=== PATIENT | female | born 1940 | race Caucasian/White ===

== ENCOUNTER 2019-07-08 18:01 | Inpatient (IN) | payer MEDICARE, OTHER ==
[2019-07-08] MEDS ORDERED: Albuterol/Ipratropium 3.0-0.5 MG/3 ML Neb Soln NEB ONE ×2 (18:25→19:53)
--- NOTE | 2019-07-08 18:30 | EDM.PDOC ---
ED HPI GENERAL MEDICAL PROBLEM - General Chief Complaint: Respiratory Problem Stated Complaint: COUGH/CHEST COLD Time Seen by Provider: 07/08/19 18:17 Source of Information: Reports: Patient History Limitations: Reports: No Limitations - History of Present Illness INITIAL COMMENTS - FREE TEXT/NARRATIVE: HISTORY AND PHYSICAL: History of present illness: Patient is a 79-year-old female who presents to the ED today for concern of cough x1 week. Patient does state the cough is worse when she lays flat and better sitting up. Patient states when she woke up this morning her eyes were also crusted over and red in both of her eyes. Patient states she does not wear contacts but does wear glasses. Patient states she has a history of stroke in 2017 and narrow carotid artery but denies any other health history. Patient states she does not smoke and does not inhale any substances and has never had in the past. Patient denies fever, chills, chest pain, shortness of breath. Denies headache, neck stiff ness, change in vision, syncope, or near syncope. Denies nausea, vomiting, abdominal pain, diarrhea, constipation, or dysuria. Has not noted any blood in urine or stool. Patient has been eating and drinking appropriately. Review of systems: As per history of present illness and below otherwise all systems reviewed and negative. Past medical history: As per history of present illness and as reviewed below otherwise noncontributory. Surgical history: As per history of present illness and as reviewed below otherwise noncontributory. Social history: See social history for further information Family history: As per history of present illness and as reviewed below otherwise noncontributory. Physical exam: General: Patient is alert, oriented, and in no acute distress. Patient sitting comfortably on exam table. HEENT: Atraumatic, normocephalic, pupils equal and reactive bilaterally, negative for conjunctival pallor or scleral icterus, mucous membranes moist, TMs normal bilaterally, throat clear, neck supple, nontender, trachea midline. No drooling or trismus noted. No meningeal signs. No hot potato voice noted. Visual acuity intact. EOM intact without pain or difficulty. Bilateral sclera are mildly injected without crusting of the lids. Lungs: Mild fine crackles to auscultation bilaterally, breath sounds equal bilaterally, chest nontender. Heart: S1S2, regular rate and rhythm without overt murmur Abdomen: Soft, nondistended, nontender. Negative for masses or hepatosplenomegaly. Negative for costovertebral tenderness. Pelvis: Stable nontender. Genitourinary: Deferred. Rectal: Deferred. Skin: Intact, warm, dry. No lesions or rashes noted. Extremities: Atraumatic, negative for cords or calf pain. Neurovascular unremarkable. Neuro: Awake, alert, oriented. Cranial nerves II through XII unremarkable. Cerebellum unremarkable. Motor and sensory unremarkable throughout. Exam nonfocal. Notes: Patient 85% O2 on RA. Placed on 2L NC and 90-91%. Breathing comfortably without secondary accessory muscle use, or tachypnea. Dr. Gilbert consulted on patient and will admit to inpatient with telemetry. Voices understanding and is agreeable to plan of care. Denies any further questions or concerns at this time. Diagnostics: Influenza, CBC, CMP, UA, EKG, chest x-ray, troponin, BNP Therapeutics: Duoneb, Rocephin, Lasix Impression: Hypoxia Congestive Heart Failure, new onset Urinary Tract Infection Plan: Admit to inpatient to Dr. Gilbert on telemetry. Definitive disposition and diagnosis as appropriate pending reevaluation and review of above. Epigastric Pain Score (Numeric/FACES): 8 - Related Data Allergies Allergy/AdvReac Type Severity Reaction Status Date / Time Penicillins Allergy Other Verified 07/08/19 18:23 Home Meds: Home Meds Aspirin [Adult Low Dose Aspirin EC] 81 mg PO DAILY 06/16/18 [History] Celecoxib 200 mg PO DAILY 06/16/18 [History] HCTZ/Triamterene [Dyazide 25-37.5 MG] 1 tab PO DAILY 06/16/18 [History] NIFEdipine [Nifedipine] 60 mg PO DAILY 06/16/18 [History] Omeprazole 40 mg PO DAILY 06/16/18 [History] PARoxetine [Paxil] 20 mg PO DAILY 06/16/18 [History] Simvastatin 20 mg PO DAILY 06/16/18 [History] atenoloL [Atenolol] 50 mg PO DAILY 06/16/18 [History] Past Medical History HEENT History: Reports: None Cardiovascular History: Reports: High Cholesterol, Hypertension Respiratory History: Reports: None Gastrointestinal History: Reports: GERD Genitourinary History: Reports: None Musculoskeletal History: Reports: None Neurological History: Reports: CVA Psychiatric History: Reports: Anxiety Endocrine/Metabolic History: Reports: None Hematologic History: Reports: None Immunologic History: Reports: None - Infectious Disease History Infectious Disease History: Reports: Chicken Pox, Measles, Mumps - Past Surgical History HEENT Surgical History: Reports: Other (See Below) Other HEENT Surgeries/Procedures: wearsn eye glass GI Surgical History: Reports: Colonoscopy Social & Family History - Family History Family Medical History: Noncontributory - Caffeine Use Caffeine Use: Reports: Coffee, Soda ED ROS GENERAL - Review of Systems Review Of Systems: Comprehensive ROS is negative, except as noted in HPI. ED EXAM, GENERAL - Physical Exam Exam: See Below (see dictation) Course - Vital Signs Last Recorded V/S: Last Vital Signs Temp 97.5 F 07/08/19 18:10 Pulse 80 07/08/19 19:54 Resp 21 H 07/08/19 19:54 BP 150/67 H 07/08/19 19:54 Pulse Ox 85 L 07/08/19 19:54 - Orders/Labs/Meds Orders: Active Orders 24 hr Category Date Time Status Admission Status [Patient Status] [ADT] Stat ADT 07/08/19 20:40 Ordered EKG Documentation Completion [RC] STAT Care 07/08/19 18:25 Active RT Aerosol Therapy [RC] ASDIRECTED Care 07/08/19 18:25 Active RT Aerosol Therapy [RC] ASDIRECTED Care 07/08/19 19:53 Active B-TYPE NATRIURETIC PEPTIDE,BNP [CHEM] Stat Lab 07/08/19 18:41 Received CULTURE URINE [RM] Stat Lab 07/08/19 19:19 Received cefTRIAXone [Rocephin in Dextrose,Iso-Osm 1 GM/50 ML] 1 Med 07/08/19 20:24 Ordered gm Premix Bag 1 bag IV ONETIME Medication Orders Ceftriaxone Sodium/Dextrose 1 (gm/ Premix) 50 mls @ 100 mls/hr IV ONETIME ONE Stop: 07/08/19 20:53 Labs: Laboratory Tests 07/08/19 07/08/19 07/08/19 Range/Units 18:41 18:41 19:19 WBC 13.21 H (4.0-11.0) K/uL RBC 4.58 (4.30-5.90) M/uL Hgb 13.5 (12.0-16.0) g/dL Hct 40.4 (36.0-46.0) % MCV 88.2 (80.0-98.0) fL MCH 29.5 (27.0-32.0) pg MCHC 33.4 (31.0-37.0) g/dL RDW Std Deviation 42.5 (28.0-62.0) fl RDW Coeff of Bebo 13 (11.0-15.0) % Plt Count 344 (150-400) K/uL MPV 8.70 (7.40-12.00) fL Add Manual Diff YES Neutrophils % (Manual) 63 (48.0-80.0) % Band Neutrophils % 11 % Lymphocytes % (Manual) 14 L (16.0-40.0) % Monocytes % (Manual) 10 (0.0-15.0) % Eosinophils % (Manual) 2 (0.0-7.0) % Nucleated RBC % 0.0 /100WBC Absolute Seg Neuts 8.3 H (1.4-5.7) Band Neutrophils # 1.5 Lymphocytes # (Manual) 1.8 (0.6-2.4) Monocytes # (Manual) 1.3 H (0.0-0.8) Eosinophils # (Manual) 0.3 (0.0-0.7) Nucleated RBCs # 0 K/uL Sodium 137 (136-145) mmol/L Potassium 3.7 (3.5-5.1) mmol/L Chloride 99 (98-107) mmol/L Carbon Dioxide 26.1 (21.0-32.0) mmol/L BUN 22 H (7.0-18.0) mg/dL Creatinine 1.1 H (0.6-1.0) mg/dL Est Cr Clr Drug Dosing 38.54 mL/min Estimated GFR (MDRD) 48.2 ml/min Glucose 114 H (74-106) mg/dL Calcium 9.6 (8.5-10.1) mg/dL Total Bilirubin 0.4 (0.2-1.0) mg/dL AST 31 (15-37) IU/L ALT 52 (14-63) IU/L Alkaline Phosphatase 110 (46-116) U/L Troponin I < 0.050 (0.000-0.056) ng/mL Total Protein 7.5 (6.4-8.2) g/dL Albumin 2.9 L (3.4-5.0) g/dL Globulin 4.6 H (2.6-4.0) g/dL Albumin/Globulin Ratio 0.6 L (0.9-1.6) Urine Color YELLOW Urine Appearance SLT CLOUDY Urine pH 6.0 (5.0-8.0) Ur Specific [place] 1.020 (1.001-1.035) Urine Protein TRACE H (NEGATIVE) mg/dL Urine Glucose (UA) NEGATIVE (NEGATIVE) mg/dL Urine Ketones NEGATIVE (NEGATIVE) mg/dL Urine Occult Blood NEGATIVE (NEGATIVE) Urine Nitrite NEGATIVE (NEGATIVE) Urine Bilirubin NEGATIVE (NEGATIVE) Urine Urobilinogen 0.2 (<2.0) EU/dL Ur Leukocyte Esterase LARGE H (NEGATIVE) Urine RBC 0-4 (0-2/HPF) Urine WBC 8-16 (0-5/HPF) Ur Epithelial Cells OCCASIONAL (NONE-FEW) Urine Bacteria 1+ H (NEGATIVE) Meds: Medications Generic Name Dose Route Start Last Admin Trade Name Payton PRN Reason Stop Dose Admin Ceftriaxone Sodium/Dextrose 1 50 mls @ 100 mls/hr 07/08/19 20:24 gm/ Premix IV 07/08/19 20:53 ONETIME ONE Discontinued Medications Generic Name Dose Route Start Last Admin Trade Name Payton PRN Reason Stop Dose Admin Albuterol/Ipratropium 3 ml 07/08/19 18:25 07/08/19 18:36 Duoneb 3.0-0.5 Mg/3 Ml NEB 07/08/19 18:26 3 ml ONETIME ONE Administration Albuterol/Ipratropium 3 ml 07/08/19 19:53 07/08/19 20:00 Duoneb 3.0-0.5 Mg/3 Ml NEB 07/08/19 19:54 3 ml ONETIME ONE Administration Furosemide 20 mg 07/08/19 20:24 Lasix IVPUSH 07/08/19 20:25 NOW ONE Departure - Departure Time of Disposition: 20:42 Disposition: Admitted As Inpatient 68 Clinical Impression: Hypoxia Congestive heart failure (CHF) Qualifiers: Heart failure type: unspecified Heart failure chronicity: acute Qualified Code( s): I50.9 - Heart failure, unspecified Urinary tract infection Qualifiers: Urinary tract infection type: acute cystitis Hematuria presence: without hematuria Qualified Code(s): N30.00 - Acute cystitis without hematuria - Discharge Information Referrals: Michelle Rodarte DO [Primary Care Provider] - Forms: ED Department Discharge Sepsis Event Note - Evaluation Sepsis Screening Result: No Definite Risk - Focused Exam Vital Signs: Vital Signs Temp Pulse Resp BP Pulse Ox 07/08/19 19:54 80 21 H 150/67 H 85 L 07/08/19 19:16 82 21 H 153/62 H 90 L 07/08/19 18:10 97.5 F 87 20 166/88 H 91 L Date Exam was Performed: 07/08/19 Time Exam was Performed: 20:41 - My Orders Last 24 Hours: My Active Orders 07/08/19 18:25 EKG Documentation Completion [RC] STAT RT Aerosol Therapy [RC] ASDIRECTED 07/08/19 18:41 B-TYPE NATRIURETIC PEPTIDE,BNP [CHEM] Stat 07/08/19 19:19 CULTURE URINE [RM] Stat 07/08/19 19:53 RT Aerosol Therapy [RC] ASDIRECTED 07/08/19 20:24 cefTRIAXone [Rocephin in Dextrose,Iso-Osm 1 GM/50 ML] 1 gm Premix Bag 1 bag IV ONETIME 07/08/19 20:40 Admission Status [Patient Status] [ADT] Stat - Assessment/Plan Last 24 Hours: My Active Orders 07/08/19 18:25 EKG Documentation Completion [RC] STAT RT Aerosol Therapy [RC] ASDIRECTED 07/08/19 18:41 B-TYPE NATRIURETIC PEPTIDE,BNP [CHEM] Stat 07/08/19 19:19 CULTURE URINE [RM] Stat 07/08/19 19:53 RT Aerosol Therapy [RC] ASDIRECTED 07/08/19 20:24 cefTRIAXone [Rocephin in Dextrose,Iso-Osm 1 GM/50 ML] 1 gm Premix Bag 1 bag IV ONETIME 07/08/19 20:40 Admission Status [Patient Status] [ADT] Stat
--- NOTE | 2019-07-08 19:16 | CR ---
Chest: 2 views of the chest were obtained. Comparison: Prior chest x-ray of 06/16/18. Heart is mildly enlarged. Large hiatal hernia is present. Pulmonary vessels show mild chronic congestion. Mild atelectasis within left lung base is seen. No acute parenchymal change is seen. Slight widening of the upper mediastinum is seen which is stable. Bony structures show mild scoliosis within the spine with scattered degenerative change also seen within the spine. Impression: 1. Findings as noted above. 2. Nothing acute is appreciated. Diagnostic code #2 Study was dictated in [place] Standard Time
[2019-07-08 19:19] LABS: BLOOD UREA NITROGEN,BUN 22 mg/dL (7.0-18.0); CARBON DIOXIDE,CO2 26.1 mmol/L (21.0-32.0); CHLORIDE,CL 99 mmol/L (98-107); GLUCOSE RANDOM 114 mg/dL (74-106); POTASSIUM,K 3.7 mmol/L (3.5-5.1); SODIUM,NA 137 mmol/L (136-145)
[2019-07-08] MEDS ORDERED: Furosemide 40 MG/4 ML VIAL IVPUSH ONE (20:24)
[2019-07-08] MEDS ORDERED: cefTRIAXone 1 GM in Premix Bag 1 BAG IV ONE (20:24)
--- NOTE | 2019-07-08 23:28 | PCM.HP.2 ---
H&P History of Present Illness - General Date of Service: 07/08/19 Admit Problem/Dx: Admission Diagnosis/Problem Admission Diagnosis/Problem Hypoxia - History of Present Illness Initial Comments - Free Text/Narative: 79 yo female with pmh of HTN and CVA who presents with several day history of cough. Cough is worse at night. PAtient reports shortness of breath with walking. She denies any fevers, chills or chest pain. In the ED she was noted to satting 85% on room air. Epigastric Pain Score (Numeric/FACES): 8 - Related Data Allergies/Adverse Reactions: Allergies Allergy/AdvReac Type Severity Reaction Status Date / Time Penicillins Allergy Rash Verified 07/08/19 22:13 Home Medications: Home Meds Aspirin [Adult Low Dose Aspirin EC] 81 mg PO DAILY 06/16/18 [History] HCTZ/Triamterene [Dyazide 25-37.5 MG] 1 tab PO DAILY 06/16/18 [History] NIFEdipine [Nifedipine] 60 mg PO DAILY 06/16/18 [History] Omeprazole 40 mg PO DAILY 06/16/18 [History] PARoxetine [Paxil] 20 mg PO DAILY 06/16/18 [History] atenoloL [Atenolol] 50 mg PO DAILY 06/16/18 [History] Ascorbic Acid [C-1000] 1,000 mg PO DAILY 07/08/19 [History] Calcium Carbonate/Vitamin D3 [Calcium Carb 500 MG] 1 tab PO DAILY 07/08/19 [ History] Celecoxib 200 mg PO DAILY 07/08/19 [History] Multivitamins [Tab-A-Ritchie] 1 each PO DAILY 07/08/19 [History] [place]-3 Fatty Acids/Fish Oil [Fish Oil 1,200 mg Softgel] 1 each PO DAILY [History] atorvaSTATin [Lipitor] 40 mg PO BEDTIME 07/08/19 [History] Azithromycin [Zithromax] 500 mg PO Q24H #6 tablet 07/10/19 [Rx] Past Medical History HEENT History: Reports: None Cardiovascular History: Reports: High Cholesterol, Hypertension Respiratory History: Reports: None Gastrointestinal History: Reports: GERD Genitourinary History: Reports: None Musculoskeletal History: Reports: Arthritis Neurological History: Reports: CVA Other Neuro History: November 2016 Psychiatric History: Reports: Anxiety Endocrine/Metabolic History: Reports: None Hematologic History: Reports: None Immunologic History: Reports: None Oncologic (Cancer) History: Reports: None Dermatologic History: Reports: None - Infectious Disease History Infectious Disease History: Reports: Chicken Pox, Measles, Mumps - Past Surgical History Head Surgeries/Procedures: Reports: None HEENT Surgical History: Reports: Other (See Below) Other HEENT Surgeries/Procedures: wearsn eye glass GI Surgical History: Reports: Colonoscopy Social & Family History - Family History Family Medical History: Noncontributory - Tobacco Use Smoking Status *Q: Never Smoker Second Hand Smoke Exposure: No - Caffeine Use Caffeine Use: Reports: Coffee, Soda - Recreational Drug Use Recreational Drug Use: No H&P Review of Systems - Review of Systems: Review Of Systems: Comprehensive ROS is negative, except as noted in HPI. Exam - Exam Exam: See Below - Vital Signs Vital Signs: Last Vital Signs Temp 36.4 C 07/08/19 18:10 Pulse 84 07/08/19 20:10 Resp 22 H 07/08/19 20:10 BP 150/67 H 07/08/19 19:54 Pulse Ox 94 L 07/08/19 20:10 Weight: 89.5 kg - Exam General: Alert, Oriented HEENT: Posterior Pharynx Clear Lungs: Clear to Auscultation, Normal Respiratory Effort Cardiovascular: Regular Rate, Regular Rhythm GI/Abdominal Exam: Soft Extremities: Non-Tender, No Pedal Edema Skin: Warm, Dry, Intact Neurological: No: Focal Deficit - Patient Data Lab Results Last 24 hrs: Laboratory Results - last 24 hr 07/08/19 07/08/19 07/08/19 Range/Units 18:41 18:41 18:41 WBC 13.21 H (4.0-11.0) K/uL RBC 4.58 (4.30-5.90) M/uL Hgb 13.5 (12.0-16.0) g/dL Hct 40.4 (36.0-46.0) % MCV 88.2 (80.0-98.0) fL MCH 29.5 (27.0-32.0) pg MCHC 33.4 (31.0-37.0) g/dL RDW Std Deviation 42.5 (28.0-62.0) fl RDW Coeff of Bebo 13 (11.0-15.0) % Plt Count 344 (150-400) K/uL MPV 8.70 (7.40-12.00) fL Add Manual Diff YES Neutrophils % (Manual) 63 (48.0-80.0) % Band Neutrophils % 11 % Lymphocytes % (Manual) 14 L (16.0-40.0) % Monocytes % (Manual) 10 (0.0-15.0) % Eosinophils % (Manual) 2 (0.0-7.0) % Nucleated RBC % 0.0 /100WBC Absolute Seg Neuts 8.3 H (1.4-5.7) Band Neutrophils # 1.5 Lymphocytes # (Manual) 1.8 (0.6-2.4) Monocytes # (Manual) 1.3 H (0.0-0.8) Eosinophils # (Manual) 0.3 (0.0-0.7) Nucleated RBCs # 0 K/uL Sodium 137 (136-145) mmol/L Potassium 3.7 (3.5-5.1) mmol/L Chloride 99 (98-107) mmol/L Carbon Dioxide 26.1 (21.0-32.0) mmol/L BUN 22 H (7.0-18.0) mg/dL Creatinine 1.1 H (0.6-1.0) mg/dL Est Cr Clr Drug Dosing 38.54 mL/min Estimated GFR (MDRD) 48.2 ml/min Glucose 114 H (74-106) mg/dL Calcium 9.6 (8.5-10.1) mg/dL Total Bilirubin 0.4 (0.2-1.0) mg/dL AST 31 (15-37) IU/L ALT 52 (14-63) IU/L Alkaline Phosphatase 110 (46-116) U/L Troponin I < 0.050 (0.000-0.056) ng/mL B-Natriuretic Peptide 87 (<100) PG/ML Total Protein 7.5 (6.4-8.2) g/dL Albumin 2.9 L (3.4-5.0) g/dL Globulin 4.6 H (2.6-4.0) g/dL Albumin/Globulin Ratio 0.6 L (0.9-1.6) Urine Color Urine Appearance Urine pH (5.0-8.0) Ur Specific [place] (1.001-1.035) Urine Protein (NEGATIVE) mg/dL Urine Glucose (UA) (NEGATIVE) mg/dL Urine Ketones (NEGATIVE) mg/dL Urine Occult Blood (NEGATIVE) Urine Nitrite (NEGATIVE) Urine Bilirubin (NEGATIVE) Urine Urobilinogen (<2.0) EU/dL Ur Leukocyte Esterase (NEGATIVE) Urine RBC (0-2/HPF) Urine WBC (0-5/HPF) Ur Epithelial Cells (NONE-FEW) Urine Bacteria (NEGATIVE) 07/08/19 Range/Units 19:19 WBC (4.0-11.0) K/uL RBC (4.30-5.90) M/uL Hgb (12.0-16.0) g/dL Hct (36.0-46.0) % MCV (80.0-98.0) fL MCH (27.0-32.0) pg MCHC (31.0-37.0) g/dL RDW Std Deviation (28.0-62.0) fl RDW Coeff of Bebo (11.0-15.0) % Plt Count (150-400) K/uL MPV (7.40-12.00) fL Add Manual Diff Neutrophils % (Manual) (48.0-80.0) % Band Neutrophils % % Lymphocytes % (Manual) (16.0-40.0) % Monocytes % (Manual) (0.0-15.0) % Eosinophils % (Manual) (0.0-7.0) % Nucleated RBC % /100WBC Absolute Seg Neuts (1.4-5.7) Band Neutrophils # Lymphocytes # (Manual) (0.6-2.4) Monocytes # (Manual) (0.0-0.8) Eosinophils # (Manual) (0.0-0.7) Nucleated RBCs # K/uL Sodium (136-145) mmol/L Potassium (3.5-5.1) mmol/L Chloride (98-107) mmol/L Carbon Dioxide (21.0-32.0) mmol/L BUN (7.0-18.0) mg/dL Creatinine (0.6-1.0) mg/dL Est Cr Clr Drug Dosing mL/min Estimated GFR (MDRD) ml/min Glucose (74-106) mg/dL Calcium (8.5-10.1) mg/dL Total Bilirubin (0.2-1.0) mg/dL AST (15-37) IU/L ALT (14-63) IU/L Alkaline Phosphatase (46-116) U/L Troponin I (0.000-0.056) ng/mL B-Natriuretic Peptide (<100) PG/ML Total Protein (6.4-8.2) g/dL Albumin (3.4-5.0) g/dL Globulin (2.6-4.0) g/dL Albumin/Globulin Ratio (0.9-1.6) Urine Color YELLOW Urine Appearance SLT CLOUDY Urine pH 6.0 (5.0-8.0) Ur Specific [place] 1.020 (1.001-1.035) Urine Protein TRACE H (NEGATIVE) mg/dL Urine Glucose (UA) NEGATIVE (NEGATIVE) mg/dL Urine Ketones NEGATIVE (NEGATIVE) mg/dL Urine Occult Blood NEGATIVE (NEGATIVE) Urine Nitrite NEGATIVE (NEGATIVE) Urine Bilirubin NEGATIVE (NEGATIVE) Urine Urobilinogen 0.2 (<2.0) EU/dL Ur Leukocyte Esterase LARGE H (NEGATIVE) Urine RBC 0-4 (0-2/HPF) Urine WBC 8-16 (0-5/HPF) Ur Epithelial Cells OCCASIONAL (NONE-FEW) Urine Bacteria 1+ H (NEGATIVE) Result Diagrams: 07/10/19 05:52 07/10/19 05:52 Jimmie Results Last 24 hrs: Microbiology 07/08/19 18:15 Influenza Type A Antigen Screen - Final Nasopharyngeal Swab NEGATIVE INFLUENZA A VIRUS AG REFERENCE RANGE: NEGATIVE Influenza Type B Antigen Screen - Final NEGATIVE INFLUENZA B VIRUS AG REFERENCE RANGE: NEGATIVE Sepsis Event Note - Evaluation Sepsis Screening Result: No Definite Risk - Focused Exam Vital Signs: Vital Signs Temp Pulse Resp BP Pulse Ox 07/08/19 20:10 84 22 H 94 L 07/08/19 19:54 80 21 H 150/67 H 85 L 07/08/19 19:16 82 21 H 153/62 H 90 L 07/08/19 18:10 36.4 C 87 20 166/88 H 91 L Date Exam was Performed: 07/15/19 Time Exam was Performed: 10:58 Problem List Initiated/Reviewed/Updated: Yes Orders Last 24hrs: Active Orders 24 hr Category Date Time Status Admission Status [Patient Status] [ADT] Stat ADT 07/08/19 20:40 Active EKG Documentation Completion [RC] STAT Care 07/08/19 18:25 Active RT Aerosol Therapy [RC] ASDIRECTED Care 07/08/19 18:25 Active RT Aerosol Therapy [RC] ASDIRECTED Care 07/08/19 19:53 Active CULTURE URINE [RM] Stat Lab 07/08/19 19:19 Received Acetaminophen [Tylenol] Med 07/08/19 23:17 Active 650 mg PO Q6H PRN Medication Orders Acetaminophen (Tylenol) 650 mg PO Q6H PRN PRN Reason: Pain Assessment/Plan Comment:: 79 yo female admitted with Pneumonia and CHF. We will treat with Rocephin and Azithromycin. Lasix has been given. Will continue to wean supplemental oxygen as tolerated.
[2019-07-09] MEDS: Azithromycin 250 MG Tab PO SCH (00:37)
[2019-07-09] MEDS: Heparin Sodium 5,000 Units/ML Vial SUBCUT SCH ×3 (00:39→16:20)
[2019-07-09 06:35] LABS: CARBON DIOXIDE,CO2 31.7 mmol/L (21.0-32.0); POTASSIUM,K 3.8 mmol/L (3.5-5.1)
[2019-07-09] MEDS ORDERED: Albuterol/Ipratropium 3.0-0.5 MG/3 ML Neb Soln NEB PRN (08:48)
[2019-07-09] MEDS: Hydrochlorothiazide/Triamterene 25-37.5 Tab PO SCH (08:50)
[2019-07-09] MEDS: NIFEdipine 30 MG Tab.ER PO SCH (08:50)
[2019-07-09] MEDS: Atenolol 50 MG Tab PO SCH (08:51)
[2019-07-09] MEDS: Aspirin 81 MG Tab.EC PO SCH (08:51)
[2019-07-09] MEDS: Omeprazole 20 MG Cap.CR PO SCH (08:52)
--- NOTE | 2019-07-09 09:04 | PCM.PN ---
- General Info Date of Service: 07/09/19 Admission Dx/Problem (Free Text): Admission Diagnosis/Problem Admission Diagnosis/Problem Hypoxia Subjective Update: Patient has no complaints of SOB but still has a cough. She states, "I did not sleep well last night but was not SOB, just had a cough." No chest pain or edema and was sitting up visiting with her daughter. She reports that she does snore during the night and wakes up short of breath sometimes. She sleeps with one pillow behind her head and feels better when she sitting up sleeping. No complaint of dysuria or frequency, she had a bowel movement 07/08 and is passing gas. She is on 2 liters of O2 and maintaining greater than 90. - Review of Systems General: Reports: No Symptoms HEENT: Reports: No Symptoms Pulmonary: Reports: Shortness of Breath Cardiovascular: Reports: No Symptoms Gastrointestinal: Reports: No Symptoms Genitourinary: Reports: No Symptoms Musculoskeletal: Reports: No Symptoms Skin: Reports: No Symptoms Neurological: Reports: No Symptoms Psychiatric: Reports: No Symptoms - Patient Data Vitals - Most Recent: Last Vital Signs Temp 96 F 07/09/19 08:28 Pulse 78 07/09/19 08:51 Resp 18 07/09/19 08:28 BP 136/64 07/09/19 08:51 Pulse Ox 92 L 07/09/19 08:28 Weight - Most Recent: 89.5 kg I&O - Last 24 Hours: Intake & Output 07/08/19 07/09/19 07/09/19 22:59 06:59 14:59 Intake Total 650 Output Total 950 Balance -300 Lab Results Last 24 Hours: Laboratory Results - last 24 hr 07/08/19 07/08/19 07/08/19 Range/Units 18:41 18:41 18:41 WBC 13.21 H (4.0-11.0) K/uL RBC 4.58 (4.30-5.90) M/uL Hgb 13.5 (12.0-16.0) g/dL Hct 40.4 (36.0-46.0) % MCV 88.2 (80.0-98.0) fL MCH 29.5 (27.0-32.0) pg MCHC 33.4 (31.0-37.0) g/dL RDW Std Deviation 42.5 (28.0-62.0) fl RDW Coeff of Bebo 13 (11.0-15.0) % Plt Count 344 (150-400) K/uL MPV 8.70 (7.40-12.00) fL Neut % (Auto) (48.0-80.0) % Lymph % (Auto) (16.0-40.0) % [place] % (Auto) (0.0-15.0) % Eos % (Auto) (0.0-7.0) % Baso % (Auto) (0.0-1.5) % Neut # (Auto) (1.4-5.7) K/uL Lymph # (Auto) (0.6-2.4) K/uL [place] # (Auto) (0.0-0.8) K/uL Eos # (Auto) (0.0-0.7) K/uL Baso # (Auto) (0.0-0.1) K/uL Add Manual Diff YES Neutrophils % (Manual) 63 (48.0-80.0) % Band Neutrophils % 11 % Lymphocytes % (Manual) 14 L (16.0-40.0) % Monocytes % (Manual) 10 (0.0-15.0) % Eosinophils % (Manual) 2 (0.0-7.0) % Nucleated RBC % 0.0 /100WBC Absolute Seg Neuts 8.3 H (1.4-5.7) Band Neutrophils # 1.5 Lymphocytes # (Manual) 1.8 (0.6-2.4) Monocytes # (Manual) 1.3 H (0.0-0.8) Eosinophils # (Manual) 0.3 (0.0-0.7) Nucleated RBCs # 0 K/uL Sodium 137 (136-145) mmol/L Potassium 3.7 (3.5-5.1) mmol/L Chloride 99 (98-107) mmol/L Carbon Dioxide 26.1 (21.0-32.0) mmol/L BUN 22 H (7.0-18.0) mg/dL Creatinine 1.1 H (0.6-1.0) mg/dL Est Cr Clr Drug Dosing 38.54 mL/min Estimated GFR (MDRD) 48.2 ml/min Glucose 114 H (74-106) mg/dL Calcium 9.6 (8.5-10.1) mg/dL Total Bilirubin 0.4 (0.2-1.0) mg/dL AST 31 (15-37) IU/L ALT 52 (14-63) IU/L Alkaline Phosphatase 110 (46-116) U/L Troponin I < 0.050 (0.000-0.056) ng/mL B-Natriuretic Peptide 87 (<100) PG/ML Total Protein 7.5 (6.4-8.2) g/dL Albumin 2.9 L (3.4-5.0) g/dL Globulin 4.6 H (2.6-4.0) g/dL Albumin/Globulin Ratio 0.6 L (0.9-1.6) Urine Color Urine Appearance Urine pH (5.0-8.0) Ur Specific [place] (1.001-1.035) Urine Protein (NEGATIVE) mg/dL Urine Glucose (UA) (NEGATIVE) mg/dL Urine Ketones (NEGATIVE) mg/dL Urine Occult Blood (NEGATIVE) Urine Nitrite (NEGATIVE) Urine Bilirubin (NEGATIVE) Urine Urobilinogen (<2.0) EU/dL Ur Leukocyte Esterase (NEGATIVE) Urine RBC (0-2/HPF) Urine WBC (0-5/HPF) Ur Epithelial Cells (NONE-FEW) Urine Bacteria (NEGATIVE) 07/08/19 07/09/19 07/09/19 Range/Units 19:19 06:10 06:10 WBC 15.70 H (4.0-11.0) K/uL RBC 4.55 (4.30-5.90) M/uL Hgb 13.3 (12.0-16.0) g/dL Hct 40.5 (36.0-46.0) % MCV 89.0 (80.0-98.0) fL MCH 29.2 (27.0-32.0) pg MCHC 32.8 (31.0-37.0) g/dL RDW Std Deviation 42.8 (28.0-62.0) fl RDW Coeff of Bebo 13 (11.0-15.0) % Plt Count 360 (150-400) K/uL MPV 8.60 (7.40-12.00) fL Neut % (Auto) 78.4 (48.0-80.0) % Lymph % (Auto) 11.8 L (16.0-40.0) % [place] % (Auto) 8.3 (0.0-15.0) % Eos % (Auto) 1.1 (0.0-7.0) % Baso % (Auto) 0.4 (0.0-1.5) % Neut # (Auto) 12.3 H (1.4-5.7) K/uL Lymph # (Auto) 1.9 (0.6-2.4) K/uL [place] # (Auto) 1.3 H (0.0-0.8) K/uL Eos # (Auto) 0.2 (0.0-0.7) K/uL Baso # (Auto) 0.1 (0.0-0.1) K/uL Add Manual Diff Neutrophils % (Manual) (48.0-80.0) % Band Neutrophils % % Lymphocytes % (Manual) (16.0-40.0) % Monocytes % (Manual) (0.0-15.0) % Eosinophils % (Manual) (0.0-7.0) % Nucleated RBC % 0.0 /100WBC Absolute Seg Neuts (1.4-5.7) Band Neutrophils # Lymphocytes # (Manual) (0.6-2.4) Monocytes # (Manual) (0.0-0.8) Eosinophils # (Manual) (0.0-0.7) Nucleated RBCs # 0 K/uL Sodium 138 (136-145) mmol/L Potassium 3.8 (3.5-5.1) mmol/L Chloride 99 (98-107) mmol/L Carbon Dioxide 31.7 (21.0-32.0) mmol/L BUN 17 (7.0-18.0) mg/dL Creatinine 1.1 H (0.6-1.0) mg/dL Est Cr Clr Drug Dosing 38.48 mL/min Estimated GFR (MDRD) 48.2 ml/min Glucose 158 H (74-106) mg/dL Calcium 9.2 (8.5-10.1) mg/dL Total Bilirubin (0.2-1.0) mg/dL AST (15-37) IU/L ALT (14-63) IU/L Alkaline Phosphatase (46-116) U/L Troponin I (0.000-0.056) ng/mL B-Natriuretic Peptide (<100) PG/ML Total Protein (6.4-8.2) g/dL Albumin (3.4-5.0) g/dL Globulin (2.6-4.0) g/dL Albumin/Globulin Ratio (0.9-1.6) Urine Color YELLOW Urine Appearance SLT CLOUDY Urine pH 6.0 (5.0-8.0) Ur Specific [place] 1.020 (1.001-1.035) Urine Protein TRACE H (NEGATIVE) mg/dL Urine Glucose (UA) NEGATIVE (NEGATIVE) mg/dL Urine Ketones NEGATIVE (NEGATIVE) mg/dL Urine Occult Blood NEGATIVE (NEGATIVE) Urine Nitrite NEGATIVE (NEGATIVE) Urine Bilirubin NEGATIVE (NEGATIVE) Urine Urobilinogen 0.2 (<2.0) EU/dL Ur Leukocyte Esterase LARGE H (NEGATIVE) Urine RBC 0-4 (0-2/HPF) Urine WBC 8-16 (0-5/HPF) Ur Epithelial Cells OCCASIONAL (NONE-FEW) Urine Bacteria 1+ H (NEGATIVE) Jimmie Results Last 24 Hours: Microbiology 07/08/19 18:15 Influenza Type A Antigen Screen - Final Nasopharyngeal Swab NEGATIVE INFLUENZA A VIRUS AG REFERENCE RANGE: NEGATIVE Influenza Type B Antigen Screen - Final NEGATIVE INFLUENZA B VIRUS AG REFERENCE RANGE: NEGATIVE Med Orders - Current: Current Medications Acetaminophen (Tylenol) 650 mg PO Q6H PRN PRN Reason: Pain Albuterol/Ipratropium (Duoneb 3.0-0.5 Mg/3 Ml) 3 ml NEB Q4HRRT PRN PRN Reason: dyspnea/wheezing Aspirin (Halfprin) 81 mg PO DAILY [facility] Last Admin: 07/09/19 08:51 Dose: 81 mg Atenolol (Tenormin) 50 mg PO DAILY [facility] Last Admin: 07/09/19 08:51 Dose: 50 mg Atorvastatin Calcium (Lipitor) 40 mg PO BEDTIME [facility] Azithromycin (Zithromax) 500 mg PO Q24H [facility] Last Admin: 07/09/19 00:37 Dose: 500 mg Heparin Sodium (Porcine) (Heparin Sodium) 5,000 units SUBCUT Q8H [facility] Last Admin: 07/09/19 08:45 Dose: 5,000 units Ceftriaxone Sodium 1 gm/ (Sodium Chloride) 50 mls @ 100 mls/hr IV Q24H [facility] Nifedipine (Procardia Xl) 60 mg PO DAILY [facility] Last Admin: 07/09/19 08:50 Dose: 60 mg Omeprazole (Omeprazole) 40 mg PO DAILY [facility] Last Admin: 07/09/19 08:52 Dose: 40 mg Paroxetine HCl (Paxil) 20 mg PO DAILY [facility] Last Admin: 07/09/19 08:49 Dose: 20 mg Triamterene/HCTZ (Maxzide 25-37.5 Mg) 1 each PO DAILY [facility] Last Admin: 07/09/19 08:50 Dose: 1 each Discontinued Medications Albuterol/Ipratropium (Duoneb 3.0-0.5 Mg/3 Ml) 3 ml NEB ONETIME ONE Stop: 07/08/19 18:26 Last Admin: 07/08/19 18:36 Dose: 3 ml Albuterol/Ipratropium (Duoneb 3.0-0.5 Mg/3 Ml) 3 ml NEB ONETIME ONE Stop: 07/08/19 19:54 Last Admin: 07/08/19 20:00 Dose: 3 ml Furosemide (Lasix) 20 mg IVPUSH NOW ONE Stop: 07/08/19 20:25 Last Admin: 07/08/19 21:00 Dose: 20 mg Ceftriaxone Sodium/Dextrose 1 (gm/ Premix) 50 mls @ 100 mls/hr IV ONETIME ONE Stop: 07/08/19 20:53 Last Admin: 07/08/19 21:00 Dose: 100 mls/hr - Exam Quality Assessment: Supplemental Oxygen, DVT Prophylaxis General: Alert, Oriented Lungs: Clear to Auscultation, Crackles (Crackles noted on the left lower lobe) Cardiovascular: Regular Rate, Regular Rhythm GI/Abdominal Exam: Normal Bowel Sounds, Soft, Non-Tender, No Distention Extremities: No Pedal Edema Skin: Warm, Dry, Intact Psy/Mental Status: Alert, Normal Affect, Normal Mood Sepsis Event Note - Evaluation Sepsis Screening Result: No Definite Risk - Focused Exam Vital Signs: Vital Signs Temp Pulse Pulse Resp BP BP Pulse Ox 07/09/19 08:51 78 136/64 07/09/19 08:50 136/64 07/09/19 08:28 96 F 78 18 136/64 92 L 07/09/19 04:00 97.6 F 82 19 124/62 94 L 07/09/19 00:00 98.7 F 84 22 H 156/92 H 92 L Pulse Ox 07/09/19 08:51 07/09/19 08:50 07/09/19 08:28 07/09/19 04:00 07/09/19 00:00 92 L Date Exam was Performed: 07/09/19 Time Exam was Performed: 11:09 - Problem List & Annotations (1) CAP (community acquired pneumonia) SNOMED Code(s): 335644070 Code(s): J18.9 - PNEUMONIA, UNSPECIFIED ORGANISM Status: Acute Current Visit: Yes Qualifiers: Laterality: unspecified laterality Qualified Code(s): J18.9 - Pneumonia, unspecified organism (2) Congestive heart failure (CHF) SNOMED Code(s): 73467820 Code(s): I50.9 - HEART FAILURE, UNSPECIFIED Status: Suspected Current Visit: Yes Qualifiers: Heart failure type: unspecified Heart failure chronicity: acute Qualified Code(s): I50.9 - Heart failure, unspecified (3) Hypoxia SNOMED Code(s): 610837541 Code(s): R09.02 - HYPOXEMIA Status: Acute Current Visit: Yes (4) CVA (cerebral vascular accident) SNOMED Code(s): 722887742 Code(s): I63.9 - CEREBRAL INFARCTION, UNSPECIFIED Status: Chronic Current Visit: Yes (5) HTN (hypertension) SNOMED Code(s): 44080849 Code(s): I10 - ESSENTIAL (PRIMARY) HYPERTENSION Status: Chronic Current Visit: Yes - Problem List Review Problem List Initiated/Reviewed/Updated: Yes - My Orders Last 24 Hours: My Active Orders 07/09/19 08:46 GLYCOSYLATED HEMOGLOBIN,HGBA1C [CHEM] Routine 07/09/19 08:48 Albuterol/Ipratropium [DuoNeb 3.0-0.5 MG/3 ML] 3 ml NEB Q4HRRT PRN 07/09/19 08:49 RT Aerosol Therapy [RC] ASDIRECTED 07/09/19 09:02 Echo Comp wo Cont [US] Routine 07/10/19 05:11 BMP [BASIC METABOLIC PANEL,BMP] [CHEM] AM CBC WITH AUTO DIFF [HEME] AM 07/11/19 05:11 BMP [BASIC METABOLIC PANEL,BMP] [CHEM] AM CBC WITH AUTO DIFF [HEME] AM - Plan Plan:: 79 year old female admitted with Hypoxia, Secondary to suspected CHF and CAP. 1. Acute CHF: suspected. SOB improved overnight after administration of Lasix and O2 in the ER. Low sodium diet, 2 liter fluid restriction, daily weights, strict I&O, Will give Lasix 20mg IV today and evaul diuresis. Will obtain Echo. History suggestive of sleep apnea will arrange out patient sleep study. 2.CAP: Continue antibiotics, 2 liters of O2, Nebs PRN, wean off O2 as possible. 3. Hypertension: Stable continue antihypertensives. VTE prophylaxis: heparin Dispo 1 day.
[2019-07-09] MEDS ORDERED: Furosemide 20 MG/2 ML VIAL IVPUSH ONE (10:28)
[2019-07-09] MEDS ORDERED: cefTRIAXone 1 GM in Sodium Chloride 0.9% 50 ML IV SCH (20:00)
[2019-07-09] MEDS ORDERED: atorvaSTATin 40 MG Tab PO SCH (21:00)
[2019-07-09] MEDS: Acetaminophen 325 MG Tab PO PRN (21:39)
[2019-07-10] MEDS: Heparin Sodium 5,000 Units/ML Vial SUBCUT SCH ×2 (00:18→09:42)
[2019-07-10] MEDS: Azithromycin 250 MG Tab PO SCH (00:18)
[2019-07-10 06:21] LABS: BLOOD UREA NITROGEN,BUN 17 mg/dL (7.0-18.0); CARBON DIOXIDE,CO2 28.7 mmol/L (21.0-32.0); CHLORIDE,CL 99 mmol/L (98-107); GLUCOSE RANDOM 111 mg/dL (74-106)
[2019-07-10 06:26] LABS: POTASSIUM,K 3.2 mmol/L (3.5-5.1); SODIUM,NA 141 mmol/L (136-145)
[2019-07-10] MEDS ORDERED: Furosemide 40 MG/4 ML VIAL IVPUSH ONE (08:02)
[2019-07-10] MEDS ORDERED: Potassium Chloride 20 MEQ Tab.ER PO ONE (08:03)
[2019-07-10] MEDS: Aspirin 81 MG Tab.EC PO SCH (09:42)
[2019-07-10] MEDS: Omeprazole 20 MG Cap.CR PO SCH (09:42)
[2019-07-10] MEDS: Acetaminophen 325 MG Tab PO PRN (10:19)
[2019-07-10] MEDS: NIFEdipine 30 MG Tab.ER PO SCH (10:21)
[2019-07-10] MEDS: Hydrochlorothiazide/Triamterene 25-37.5 Tab PO SCH (10:21)
[2019-07-10] MEDS: Atenolol 50 MG Tab PO SCH (10:22)
--- NOTE | 2019-07-10 10:30 | PCM.DCSUM1 ---
Discharge Summary - Hospital Course Brief History: 79 yo female with pmh of HTN and CVA who presents with several day history of cough. Cough is worse at night. PAtient reports shortness of breath with walking. She denies any fevers, chills or chest pain. In the ED she was noted to satting 85% on room air. Diagnosis: Stroke: No - Discharge Data Discharge Date: 07/10/19 Discharge Disposition: Home, Self-Care 01 Condition: Stable - Referral to Home Health Primary Care Physician: Michelle Rodarte, DO - Discharge Diagnosis/Problem(s) (1) CAP (community acquired pneumonia) SNOMED Code(s): 355200566 ICD Code: J18.9 - PNEUMONIA, UNSPECIFIED ORGANISM Status: Acute Current Visit: Yes Qualifiers: Laterality: unspecified laterality Qualified Code(s): J18.9 - Pneumonia, unspecified organism (2) Congestive heart failure (CHF) SNOMED Code(s): 84203926 ICD Code: I50.9 - HEART FAILURE, UNSPECIFIED Status: Suspected Current Visit: Yes Qualifiers: Heart failure type: unspecified Heart failure chronicity: acute Qualified Code(s): I50.9 - Heart failure, unspecified (3) Hypoxia SNOMED Code(s): 335176035 ICD Code: R09.02 - HYPOXEMIA Status: Acute Current Visit: Yes (4) CVA (cerebral vascular accident) SNOMED Code(s): 888962797 ICD Code: I63.9 - CEREBRAL INFARCTION, UNSPECIFIED Status: Chronic Current Visit: Yes (5) HTN (hypertension) SNOMED Code(s): 78937375 ICD Code: I10 - ESSENTIAL (PRIMARY) HYPERTENSION Status: Chronic Current Visit: Yes - Patient Instructions Diet: Heart Healthy Diet, Low Sodium Activity: As Tolerated, No Strenuous Activities Driving: Do Not Drive Showering/Bathing: May Shower Notify Provider of: Fever, Increased Pain, Swelling and Redness, Drainage, Nausea and/or Vomiting Other/Special Instructions: Monitor weight daily, if weight increases by 3-5 lbs in 2-3 days notifiy primary care provider. Low salt diet - Discharge Plan *PRESCRIPTION DRUG MONITORING PROGRAM REVIEWED*: Not Applicable *COPY OF PRESCRIPTION DRUG MONITORING REPORT IN PATIENT JASON: Not Applicable Prescriptions/Med Rec: Azithromycin [Zithromax] 500 mg PO Q24H #6 tablet Home Medications: Home Meds Aspirin [Adult Low Dose Aspirin EC] 81 mg PO DAILY 06/16/18 [History] HCTZ/Triamterene [Dyazide 25-37.5 MG] 1 tab PO DAILY 06/16/18 [History] NIFEdipine [Nifedipine] 60 mg PO DAILY 06/16/18 [History] Omeprazole 40 mg PO DAILY 06/16/18 [History] PARoxetine [Paxil] 20 mg PO DAILY 06/16/18 [History] atenoloL [Atenolol] 50 mg PO DAILY 06/16/18 [History] Ascorbic Acid [C-1000] 1,000 mg PO DAILY 07/08/19 [History] Calcium Carbonate/Vitamin D3 [Calcium Carb 500 MG] 1 tab PO DAILY 07/08/19 [ History] Celecoxib 200 mg PO DAILY 07/08/19 [History] Multivitamins [Tab-A-Ritchie] 1 each PO DAILY 07/08/19 [History] [place]-3 Fatty Acids/Fish Oil [Fish Oil 1,200 mg Softgel] 1 each PO DAILY [History] atorvaSTATin [Lipitor] 40 mg PO BEDTIME 07/08/19 [History] Azithromycin [Zithromax] 500 mg PO Q24H #6 tablet 07/10/19 [Rx] Oxygen Therapy Mode: Room Air Patient Handouts: Urinary Tract Infection, Adult, [id number], Heart Failure, [id number] Referrals: Michelle Rodarte DO [Primary Care Provider] - 07/21/19 2:30 am (Arrive 15 minutes early, bring photo ID and insurace card. ) - Discharge Summary/Plan Comment DC Time >30 min.: No Discharge Summary/Plan Comment: Admitting Diagnoses: Hypoxia Suspected CHF suspected PNA Discharge Diagnoses: Diastolic CHF Suspected PNA Other PMH: HTN CVA Shyae was admitted for cough and hypoxia, noted to possibly have pneumonia, she was treated with Rocephin and Azithromycin along with Duonebs. She was also noted to have chronic pulmonary congestion noted on CXR. ECHO obtained and she was treated with Lasix. BUN and Cr improved with diuresis as well as breathing and cough. ECHO returned today with EF 55-60%, Mild concentric LVH, pseudonormal grade 2 pattern LV diastolic filling, mild dilated R atrium, mild mitral valve regurg, mild to moderate tricuspid valve regurg, RV systolic pressure elevated at 45.7 mmHg, revealing diastolic heart failure. She reports she doesn't sleep well at night and wakes up gasping for air at times and is noted to snore and have excessive daytime sleepiness. She will be arranged for outpatient sleep study. BP today is soft, 90 SBP. Will not give further Lasix. Counseled her on monitoring salt intake and daily weights. Her and daughter counseled on ECHO results and importance of sleep study as outpatient. At this time she does not need oxygen for home therapy. She is noted to have sats 90% with activity and at rest. She is to return to ED or clinic if concerns should arise. I will continue Azithromycin for 3 more days. - Patient Data Vitals - Most Recent: Last Vital Signs Temp 97.3 F 07/10/19 09:34 Pulse 72 07/10/19 09:34 Resp 16 07/10/19 09:34 BP 95/53 L 07/10/19 10:21 Pulse Ox 88 L 07/10/19 09:34 Weight - Most Recent: 87.317 kg I&O - Last 24 hours: Intake & Output 07/09/19 07/10/19 07/10/19 22:59 06:59 14:59 Intake Total 400 1050 Output Total 700 400 Balance -300 650 Lab Results - Last 24 hrs: Laboratory Results - last 24 hr 07/10/19 07/10/19 07/10/19 Range/Units 05:52 05:52 05:52 WBC 13.05 H (4.0-11.0) K/uL RBC 4.83 (4.30-5.90) M/uL Hgb 14.0 (12.0-16.0) g/dL Hct 42.3 (36.0-46.0) % MCV 87.6 (80.0-98.0) fL MCH 29.0 (27.0-32.0) pg MCHC 33.1 (31.0-37.0) g/dL RDW Std Deviation 41.5 (28.0-62.0) fl RDW Coeff of Bebo 13 (11.0-15.0) % Plt Count 370 (150-400) K/uL MPV 8.90 (7.40-12.00) fL Add Manual Diff YES Neutrophils % (Manual) 81 H (48.0-80.0) % Lymphocytes % (Manual) 11 L (16.0-40.0) % Monocytes % (Manual) 7 (0.0-15.0) % Basophils % (Manual) 1 (0.0-1.5) % Nucleated RBC % 0.0 /100WBC Absolute Seg Neuts 10.6 H (1.4-5.7) Lymphocytes # (Manual) 1.4 (0.6-2.4) Monocytes # (Manual) 0.9 H (0.0-0.8) Basophils # (Manual) 0.1 (0.0-0.1) Nucleated RBCs # 0 K/uL Sodium 141 (136-145) mmol/L Potassium 3.2 L (3.5-5.1) mmol/L Chloride 99 (98-107) mmol/L Carbon Dioxide 28.7 (21.0-32.0) mmol/L BUN 17 (7.0-18.0) mg/dL Creatinine 0.8 (0.6-1.0) mg/dL Est Cr Clr Drug Dosing 52.91 mL/min Estimated GFR (MDRD) > 60.0 ml/min Glucose 111 H (74-106) mg/dL Calcium 9.3 (8.5-10.1) mg/dL Magnesium 1.5 L (1.8-2.4) mg/dL ELIAS Results - Last 24 hrs: Microbiology 07/08/19 19:19 Urine Culture - Final Urine, Clean Catch MIXED COCO >100,000 CFU/ML Med Orders - Current: Current Medications Acetaminophen (Tylenol) 650 mg PO Q6H PRN PRN Reason: Pain Last Admin: 07/10/19 10:19 Dose: 650 mg Albuterol/Ipratropium (Duoneb 3.0-0.5 Mg/3 Ml) 3 ml NEB Q4HRRT PRN PRN Reason: dyspnea/wheezing Aspirin (Halfprin) 81 mg PO DAILY [facility] Last Admin: 07/10/19 09:42 Dose: 81 mg Atenolol (Tenormin) 50 mg PO DAILY [facility] Last Admin: 07/10/19 10:22 Dose: Not Given Atorvastatin Calcium (Lipitor) 40 mg PO BEDTIME [facility] Last Admin: 07/09/19 20:40 Dose: 40 mg Azithromycin (Zithromax) 500 mg PO Q24H [facility] Last Admin: 07/10/19 00:18 Dose: 500 mg Heparin Sodium (Porcine) (Heparin Sodium) 5,000 units SUBCUT Q8H [facility] Last Admin: 07/10/19 09:42 Dose: 5,000 units Ceftriaxone Sodium 1 gm/ (Sodium Chloride) 50 mls @ 100 mls/hr IV Q24H [facility] Last Admin: 07/09/19 20:39 Dose: 100 mls/hr Nifedipine (Procardia Xl) 60 mg PO DAILY [facility] Last Admin: 07/10/19 10:21 Dose: Not Given Omeprazole (Omeprazole) 40 mg PO DAILY [facility] Last Admin: 07/10/19 09:42 Dose: 40 mg Paroxetine HCl (Paxil) 20 mg PO DAILY [facility] Last Admin: 07/10/19 09:44 Dose: 20 mg Triamterene/HCTZ (Maxzide 25-37.5 Mg) 1 each PO DAILY [facility] Last Admin: 07/10/19 10:21 Dose: Not Given Discontinued Medications Albuterol/Ipratropium (Duoneb 3.0-0.5 Mg/3 Ml) 3 ml NEB ONETIME ONE Stop: 07/08/19 18:26 Last Admin: 07/08/19 18:36 Dose: 3 ml Albuterol/Ipratropium (Duoneb 3.0-0.5 Mg/3 Ml) 3 ml NEB ONETIME ONE Stop: 07/08/19 19:54 Last Admin: 07/08/19 20:00 Dose: 3 ml Furosemide (Lasix) 20 mg IVPUSH NOW ONE Stop: 07/08/19 20:25 Last Admin: 07/08/19 21:00 Dose: 20 mg Furosemide (Lasix) 20 mg IVPUSH NOW ONE Stop: 07/09/19 10:29 Last Admin: 07/09/19 11:24 Dose: 20 mg Furosemide (Lasix) 40 mg IVPUSH NOW ONE Stop: 07/10/19 08:03 Ceftriaxone Sodium/Dextrose 1 (gm/ Premix) 50 mls @ 100 mls/hr IV ONETIME ONE Stop: 07/08/19 20:53 Last Admin: 07/08/19 21:00 Dose: 100 mls/hr Potassium Chloride (Klor-Con M20) 40 meq PO ONETIME ONE Stop: 07/10/19 08:04 Last Admin: 07/10/19 09:40 Dose: 40 meq
--- NOTE | 2019-07-10 13:59 | ECHO ---
The echocardiogram report can be seen in this patient's EMR (Electronic Medical Record) in the REPORTS section. The echocardiogram report has also been scanned into PACS and can be seen there as well. CARMELLA
== END 2019-07-10 14:00 | disposition home or self-care (01) | DRG 291 ==
LOC: MW.ED 18:01 → MW.MS 20:40
PROVIDERS: ADMIT Internal Medicine; ATTEND Internal Medicine
DX: I11.0 Hypertensive heart disease with heart failure (principal); J18.9 Pneumonia, unspecified organism; I50.31 Acute diastolic (congestive) heart failure; N30.00 Acute cystitis without hematuria; E78.00 Pure hypercholesterolemia, unspecified; K21.9 Gastro-esophageal reflux disease without esophagitis; F41.9 Anxiety disorder, unspecified; R09.02 Hypoxemia; Z99.81 Dependence on supplemental oxygen; Z79.82 Long term (current) use of aspirin; Z79.899 Other long term (current) drug therapy; Z88.0 Allergy status to penicillin; Z86.73 Personal history of transient ischemic attack (TIA), and cerebral infarction without residual deficits
CPT/HCPCS: 36415; 71046; 71046-26; 80048; 80053; 81001; 83036; 83735; 83880; 84484; 85025; 87086; 87804; 93005; 93306; 94640; 99284; 99284-25; A9270-GY; J0696; J1644; J1940; J7050; J7620-GY

== ENCOUNTER 2019-09-11 16:39 | Observation (INO) | payer MEDICARE, OTHER ==
[2019-09-11] MEDS ORDERED: Sodium Chloride 0.9% 10 ML SDV IV PRN (17:09)
[2019-09-11] MEDS ORDERED: Sodium Chloride 0.9% 2.5 ML Syringe FLUSH PRN (17:09)
[2019-09-11] MEDS ORDERED: Sodium Chloride 0.9% 10 ML Syringe FLUSH PRN (17:09)
--- NOTE | 2019-09-11 17:32 | CT ---
Head CT Technique: Multiple axial sections through the brain were obtained. Intravenous contrast was not utilized. Comparison: Prior head CT exam of 06/16/18. Findings: Small old white matter infarct is noted within the posterior left frontal region which is stable. Ventricles are mildly dilated. Sulci over the convexities are mildly dilated. Old lacunar infarcts are noted within the basal ganglia. Mild areas of diminished density is noted within the periventricular white matter compatible with small vessel ischemic demyelination change. Old infarct is noted within the anterior parietal region which is stable. No other abnormal parenchymal densities are seen. No midline shift or mass effect is seen. Bone window settings were reviewed which shows no acute calvarial abnormality. Minimal mucosal thickening is noted within the right mastoid sinus as well as within the ethmoid sinuses. Impression: 1. Senescent change as noted above. 2. Mild sinus findings which are most likely chronic. 3. No acute intracranial abnormality is identified. Diagnostic code #2 Study was dictated in MDT
--- NOTE | 2019-09-11 17:33 | CR ---
Chest: PA view of the chest was obtained. Comparison: Prior chest x-ray of 07/08/19. Large hiatal hernia is noted. Heart is enlarged. Lungs are clear with no acute parenchymal change. Bony structures are grossly intact. Impression: 1. Cardiomegaly and large hiatal hernia. 2. Nothing acute is appreciated. Diagnostic code #2 Study was dictated in MDT
--- NOTE | 2019-09-11 17:40 | EDM.PDOC ---
ED HPI GENERAL MEDICAL PROBLEM - General Chief Complaint: General Stated Complaint: B/P ISSUES Time Seen by Provider: 09/11/19 16:40 Source of Information: Reports: Patient History Limitations: Reports: No Limitations - History of Present Illness INITIAL COMMENTS - FREE TEXT/NARRATIVE: This 79 year old female is admitted to the ED with a chief complaint of numbness in her left foot that lasted for about 15 minutes. She states that the symptoms started around 2:50PM. She states that she wanted to get her blood pressure checked but when she told the staff of the numbness in her left foot, she was initially brought back into room7. I ordered a Stroke code. After the CT of the head, she was moved to bed 6 and a full exam was done. Her exam using the NIHSS Score was a: 0. She has no complaints at this time as states that she feels fine. Onset: Today Duration: Minutes: Location: Reports: Other (left foot numbness) - Related Data Allergies Allergy/AdvReac Type Severity Reaction Status Date / Time Penicillins Allergy Rash Verified 09/11/19 16:48 Home Meds: Home Meds Aspirin [Adult Low Dose Aspirin EC] 81 mg PO DAILY 06/16/18 [History] Omeprazole 40 mg PO DAILY 06/16/18 [History] PARoxetine [Paxil] 20 mg PO DAILY 06/16/18 [History] atenoloL [Atenolol] 50 mg PO DAILY 06/16/18 [History] Celecoxib 200 mg PO DAILY 07/08/19 [History] Multivitamins [Tab-A-Ritchie] 1 each PO DAILY 07/08/19 [History] Epsom-3 Fatty Acids/Fish Oil [Fish Oil 1,200 mg Softgel] 1 each PO DAILY [History] Acetaminophen [Tylenol Arthritis] 650 mg PO BID 09/11/19 [History] Ascorbic Acid [Vitamin C] 1,000 mg PO DAILY 09/11/19 [History] Calcium Carbonate [Calcium] 600 mg PO DAILY 09/11/19 [History] Cholecalciferol (Vitamin D3) [Vitamin D3] 5,000 unit PO DAILY 09/11/19 [History] Folic Acid 0.4 mg PO DAILY 09/11/19 [History] HCTZ/Triamterene [Maxzide 25-37.5 MG] 1 tab PO DAILY 09/11/19 [History] NIFEdipine [Adalat cc] 60 mg PO DAILY 09/11/19 [History] Simvastatin [Zocor] 20 mg PO BEDTIME 09/11/19 [History] Past Medical History HEENT History: Reports: None Cardiovascular History: Reports: High Cholesterol, Hypertension Respiratory History: Reports: None Gastrointestinal History: Reports: GERD Genitourinary History: Reports: None Musculoskeletal History: Reports: Arthritis Neurological History: Reports: CVA Other Neuro History: November 2016 Psychiatric History: Reports: Anxiety Endocrine/Metabolic History: Reports: None Hematologic History: Reports: None Immunologic History: Reports: None Oncologic (Cancer) History: Reports: None Dermatologic History: Reports: None - Infectious Disease History Infectious Disease History: Reports: Chicken Pox, Rubella - Past Surgical History Head Surgeries/Procedures: Reports: None HEENT Surgical History: Reports: Other (See Below) Other HEENT Surgeries/Procedures: wears eye glass GI Surgical History: Reports: Colonoscopy Social & Family History - Family History Family Medical History: Noncontributory - Tobacco Use Smoking Status *Q: Never Smoker - Caffeine Use Caffeine Use: Reports: Coffee, Soda - Recreational Drug Use Recreational Drug Use: No ED ROS GENERAL - Review of Systems Review Of Systems: See Below Constitutional: Reports: No Symptoms HEENT: Reports: No Symptoms Respiratory: Reports: No Symptoms Cardiovascular: Reports: No Symptoms Endocrine: Reports: No Symptoms GI/Abdominal: Reports: No Symptoms : Reports: No Symptoms Musculoskeletal: Reports: No Symptoms Skin: Reports: No Symptoms Neurological: Reports: No Symptoms ED EXAM, GENERAL - Physical Exam Exam: See Below Exam Limited By: No Limitations General Appearance: Alert, WD/WN, No Apparent Distress Eye Exam: Bilateral Eye: EOMI (No lateral gaze), Normal Fundi, Normal Inspection , PERRL (4.5mm) Ears: Normal External Exam, Normal Canal, Hearing Grossly Normal, Normal TMs Ear Exam: Bilateral Ear: Auricle Normal, Canal Normal, TM normal Nose: Normal Inspection, Normal Mucosa, No Blood Throat/Mouth: Normal Inspection, Normal Lips, Normal Teeth, Normal Gums, Normal Oropharynx, Normal Voice, No Airway Compromise Head: Atraumatic, Normocephalic Neck: Normal Inspection, Supple, Non-Tender, Full Range of Motion Respiratory/Chest: No Respiratory Distress, Lungs Clear, Normal Breath Sounds, No Accessory Muscle Use, Chest Non-Tender Cardiovascular: Normal Peripheral Pulses, Regular Rate, Rhythm, No Edema, No Gallop, No JVD, No Murmur, No Rub Peripheral Pulses: 3+: Carotid (L), Carotid (R), Radial (R), Femoral (L), Dorsalis Pedis (L), Dorsalis Pedis (R) GI/Abdominal: Normal Bowel Sounds, Soft, Non-Tender, No Organomegaly, No Distention, No Abnormal Bruit, No Mass (Female) Exam: Deferred Rectal (Female) Exam: Deferred Back Exam: Normal Inspection Extremities: Normal Inspection, Normal Range of Motion, Normal Capillary Refill. No: Zan's Sign Neurological: Alert, Oriented (times 4), CN II-XII Intact, Normal Gait, Normal Reflexes, No Motor/Sensory Deficits, Other (NIHSS score: 0) Psychiatric: Normal Affect, Normal Mood Skin Exam: Warm, Dry, Intact, Normal Color, No Rash Lymphatic: No Adenopathy Course - Vital Signs Text/Narrative:: I discussed this case with Dr. Diaz at 7:54PM. The patient will be admitted to OBS/TELE with a diagnosis of TIA. The patient agrees with the admission plan. Last Recorded V/S: Last Vital Signs Temp 96.8 F L 09/11/19 16:48 Pulse 73 09/11/19 16:48 Resp 16 09/11/19 16:48 BP 95/54 L 09/11/19 16:48 Pulse Ox 92 L 09/11/19 16:48 - Orders/Labs/Meds Orders: Active Orders 24 hr Category Date Time Status Assess Neurological Status [RC] ASDIRECTED Care 09/11/19 17:09 Active Bedrest [RC] ASDIRECTED Care 09/11/19 17:09 Active Blood Glucose Check, Bedside [RC] ONETIME Care 09/11/19 17:09 Active Cardiac Monitoring [RC] . DIRECTED Care 09/11/19 17:09 Active EKG Documentation Completion [RC] STAT Care 09/11/19 17:09 Active Height and Weight [RC] UPON Care 09/11/19 17:09 Active Initiate Acute Stroke Protocol [RC] STAT Care 09/11/19 17:09 Active NIH Stroke Scale [RC] ASDIRECTED Care 09/11/19 17:09 Active Nursing Bedside Swallow Screen [RC] ASDIRECTED Care 09/11/19 17:09 Active Oxygen Therapy [RC] ASDIRECTED Care 09/11/19 17:09 Active Stroke Education, General [RC] Click to Edit Care 09/11/19 17:09 Active Vital Signs [RC] Q15M Care 09/11/19 17:09 Active Chest 1V Frontal [CR] Stat Exams 09/11/19 17:10 Taken Head wo Cont [CT] Stat Exams 09/11/19 17:09 Taken CBC WITH AUTO DIFF [HEME] Stat Lab 09/11/19 17:09 Ordered COMPREHENSIVE METABOLIC PN,CMP [CHEM] Stat Lab 09/11/19 17:09 Ordered DRUG SCREEN, URINE [URCHEM] Stat Lab 09/11/19 17:10 Ordered ETHANOL BLOOD MEDICAL [CHEM] Stat Lab 09/11/19 17:09 Ordered INR,PT,PROTHROMBIN TIME [COAG] Stat Lab 09/11/19 17:09 Ordered PTT,PARTIAL THROMBOPLSTIN TIME [COAG] Stat Lab 09/11/19 17:09 Ordered TROPONIN I [CHEM] Stat Lab 09/11/19 17:09 Ordered TSH [CHEM] Stat Lab 09/11/19 17:09 Ordered UA RFX ELIAS AND CULT IF INDIC [URIN] Stat Lab 09/11/19 17:09 Ordered Sodium Chloride 0.9% [Normal Saline] Med 09/11/19 17:09 Active 10 ml IV ASDIRECTED PRN Sodium Chloride 0.9% [Saline Flush] Med 09/11/19 17:09 Active 10 ml FLUSH ASDIRECTED PRN Sodium Chloride 0.9% [Saline Flush] Med 09/11/19 17:09 Active 2.5 ml FLUSH ASDIRECTED PRN Peripheral IV Insertion Adult [OM.PC] Stat Oth 09/11/19 17:09 Ordered Peripheral IV Insertion Adult [OM.PC] Stat Oth 09/11/19 17:09 Ordered Medication Orders Sodium Chloride (Saline Flush) 10 ml FLUSH ASDIRECTED PRN PRN Reason: Keep Vein Open Sodium Chloride (Saline Flush) 2.5 ml FLUSH ASDIRECTED PRN PRN Reason: Keep Vein Open Sodium Chloride (Normal Saline) 10 ml IV ASDIRECTED PRN PRN Reason: IV Use Meds: Medications Generic Name Dose Route Start Last Admin Trade Name Freq PRN Reason Stop Dose Admin Sodium Chloride 10 ml 09/11/19 17:09 Saline Flush FLUSH ASDIRECTED PRN Keep Vein Open Sodium Chloride 2.5 ml 09/11/19 17:09 Saline Flush FLUSH ASDIRECTED PRN Keep Vein Open Sodium Chloride 10 ml 09/11/19 17:09 Normal Saline IV ASDIRECTED PRN IV Use Departure - Departure Time of Disposition: 20:04 Disposition: Refer to Observation Condition: Fair Clinical Impression: TIA (transient ischemic attack) - Discharge Information *PRESCRIPTION DRUG MONITORING PROGRAM REVIEWED*: Yes *COPY OF PRESCRIPTION DRUG MONITORING REPORT IN PATIENT JASON: Yes Referrals: Michelle Rodarte DO [Primary Care Provider] - Sepsis Event Note - Evaluation Sepsis Screening Result: No Definite Risk - Focused Exam Vital Signs: Vital Signs Temp Pulse Resp BP Pulse Ox 09/11/19 16:48 96.8 F L 73 16 95/54 L 92 L Date Exam was Performed: 09/11/19 Time Exam was Performed: 17:31
[2019-09-11 18:17] LABS: BLOOD UREA NITROGEN,BUN 22 mg/dL (7.0-18.0); CARBON DIOXIDE,CO2 28.5 mmol/L (21.0-32.0); CHLORIDE,CL 104 mmol/L (98-107); GLUCOSE RANDOM 100 mg/dL (74-106); POTASSIUM,K 4.3 mmol/L (3.5-5.1); SODIUM,NA 140 mmol/L (136-145)
[2019-09-11] MEDS ORDERED: Sodium Chloride 0.9% 1,000 ML IV SCH (19:15)
[2019-09-11] MEDS ORDERED: Albuterol/Ipratropium 3.0-0.5 MG/3 ML Neb Soln NEB PRN (21:14)
[2019-09-11 21:44] LABS: HEMOGLOBIN A1C 5.7 % (4.5-6.2)
--- NOTE | 2019-09-11 23:52 | PCM.HP.2 ---
H&P History of Present Illness - General Date of Service: 09/11/19 Admit Problem/Dx: Admission Diagnosis/Problem Admission Diagnosis/Problem TIA, Transient ischemic attack - History of Present Illness Initial Comments - Free Text/Narative: This 79 year old female with PMH Of HTN, CHF, CVA came to the ED with a chief complaint of numbness in her left foot that lasted for about 15 minutes. She states that the symptoms started around 2:50PM. She initaiily came ot get her BP checked but when she told the ER staff about numbness, stork alert as called. CT head was negative for acute stroke. Patient is being admitted for further management. Onset of Symptoms: Reports: Today, Sudden Duration of Symptoms: Reports: Hour(s): Location: Reports: Lower Extremity, Left - Related Data Allergies/Adverse Reactions: Allergies Allergy/AdvReac Type Severity Reaction Status Date / Time Penicillins Allergy Rash Verified 09/11/19 16:48 Home Medications: Home Meds Aspirin [Adult Low Dose Aspirin EC] 81 mg PO DAILY 06/16/18 [History] Omeprazole 20 mg PO ACBREAKFAST 06/16/18 [History] PARoxetine [Paxil] 20 mg PO DAILY 06/16/18 [History] atenoloL [Atenolol] 50 mg PO DAILY 06/16/18 [History] Celecoxib 200 mg PO DAILY 07/08/19 [History] Multivitamins [Tab-A-Ritchie] 1 each PO DAILY 07/08/19 [History] [place]-3 Fatty Acids/Fish Oil [Fish Oil 1,200 mg Softgel] 1 each PO DAILY [History] Acetaminophen [Tylenol Arthritis] 650 mg PO BID 09/11/19 [History] Ascorbic Acid [Vitamin C] 1,000 mg PO DAILY 09/11/19 [History] Calcium Carbonate [Calcium] 600 mg PO DAILY 09/11/19 [History] Cholecalciferol (Vitamin D3) [Vitamin D3] 5,000 unit PO DAILY 09/11/19 [History] Folic Acid 0.4 mg PO DAILY 09/11/19 [History] HCTZ/Triamterene [Maxzide 25-37.5 MG] 1 tab PO DAILY 09/11/19 [History] NIFEdipine [Adalat cc] 60 mg PO DAILY 09/11/19 [History] Simvastatin [Zocor] 20 mg PO BEDTIME 09/11/19 [History] Past Medical History HEENT History: Reports: None Cardiovascular History: Reports: High Cholesterol, Hypertension Respiratory History: Reports: None Gastrointestinal History: Reports: GERD Genitourinary History: Reports: None Musculoskeletal History: Reports: Arthritis Neurological History: Reports: CVA Other Neuro History: November 2016 Psychiatric History: Reports: Anxiety Endocrine/Metabolic History: Reports: None Hematologic History: Reports: None Immunologic History: Reports: None Oncologic (Cancer) History: Reports: None Dermatologic History: Reports: None - Infectious Disease History Infectious Disease History: Reports: Chicken Pox, Rubella - Past Surgical History Head Surgeries/Procedures: Reports: None HEENT Surgical History: Reports: Other (See Below) Other HEENT Surgeries/Procedures: wears eye glass GI Surgical History: Reports: Colonoscopy Social & Family History - Family History Family Medical History: Noncontributory - Tobacco Use Smoking Status *Q: Never Smoker - Caffeine Use Caffeine Use: Reports: Coffee, Soda - Recreational Drug Use Recreational Drug Use: No H&P Review of Systems - Review of Systems: General: Denies: Fever, Chills, Malaise HEENT: Denies: Dysphasia, Ear Pain Pulmonary: Denies: Shortness of Breath, Wheezing, Pleuritic Chest Pain Cardiovascular: Denies: Chest Pain, Palpitations, Dyspnea on Exertion Gastrointestinal: Denies: Abdominal Pain, Anorexia, Black Stool, Distension, Vomiting Genitourinary: Denies: Dysuria, Frequency, Burning Musculoskeletal: Denies: Neck Pain, Shoulder Pain, Arm Pain Skin: Denies: Cyanosis, Jaundice, Mottled Neurological: Reports: Numbness, Paresthesia, Tingling. Denies: Confusion, Dizziness, Headache, Pre-Existing Deficit, Seizure, Tremors, Trouble Speaking Exam - Vital Signs Vital Signs: Last Vital Signs Temp 36.0 C L 09/11/19 16:48 Pulse 56 L 09/11/19 20:00 Resp 18 09/11/19 20:00 BP 145/63 H 09/11/19 20:00 Pulse Ox 97 09/11/19 20:00 Weight: 90.718 kg - Exam General: Alert, Oriented Neck: Supple, Trachea Midline Lungs: Clear to Auscultation, Normal Respiratory Effort, Decreased Breath Sounds Cardiovascular: Regular Rate, Regular Rhythm, Normal S1, Normal S2 Peripheral Pulses: 3+: Dorsalis Pedis (L), Dorsalis Pedis (R) Neuro Extensive - Mental Status: Alert, Oriented x3, Normal Mood/Affect Neuro Extensive - Motor, Sensory, Reflexes: CN II-XII Intact, Normal Reflexes DTR: 3+: Achilles (L), Achilles (R) - Patient Data Lab Results Last 24 hrs: Laboratory Results - last 24 hr 09/11/19 09/11/19 09/11/19 Range/Units 17:31 17:31 17:31 WBC 11.40 H (4.0-11.0) K/uL RBC 4.69 (4.30-5.90) M/uL Hgb 13.6 (12.0-16.0) g/dL Hct 43.5 (36.0-46.0) % MCV 92.8 (80.0-98.0) fL MCH 29.0 (27.0-32.0) pg MCHC 31.3 (31.0-37.0) g/dL RDW Std Deviation 48.2 (28.0-62.0) fl RDW Coeff of [place]eb[place] 14 (11.0-15.0) % Plt Count 319 (150-400) K/uL MPV 9.00 (7.40-12.00) fL Neut % (Auto) 72.8 (48.0-80.0) % Lymph % (Auto) 13.2 L (16.0-40.0) % [place] % (Auto) 9.7 (0.0-15.0) % Eos % (Auto) 3.9 (0.0-7.0) % Baso % (Auto) 0.4 (0.0-1.5) % Neut # (Auto) 8.3 H (1.4-5.7) K/uL Lymph # (Auto) 1.5 (0.6-2.4) K/uL [place] # (Auto) 1.1 H (0.0-0.8) K/uL Eos # (Auto) 0.5 (0.0-0.7) K/uL Baso # (Auto) 0.1 (0.0-0.1) K/uL Nucleated RBC % 0.0 /100WBC Nucleated RBCs # 0 K/uL INR 0.98 APTT 24.3 (18.6-31.3) SEC Sodium 140 (136-145) mmol/L Potassium 4.3 (3.5-5.1) mmol/L Chloride 104 (98-107) mmol/L Carbon Dioxide 28.5 (21.0-32.0) mmol/L BUN 22 H (7.0-18.0) mg/dL Creatinine 1.0 (0.6-1.0) mg/dL Est Cr Clr Drug Dosing 42.39 mL/min Estimated GFR (MDRD) 53.8 ml/min Glucose 100 (74-106) mg/dL Hemoglobin A1c (4.5-6.2) % Calcium 9.2 (8.5-10.1) mg/dL Total Bilirubin 0.3 (0.2-1.0) mg/dL AST 215 H (15-37) IU/L ALT 369 H (14-63) IU/L Alkaline Phosphatase 442 H (46-116) U/L Troponin I < 0.050 (0.000-0.056) ng/mL Total Protein 6.9 (6.4-8.2) g/dL Albumin 3.5 (3.4-5.0) g/dL Globulin 3.4 (2.6-4.0) g/dL Albumin/Globulin Ratio 1.0 (0.9-1.6) Free T4 (0.76-1.46) ng/dL TSH 3rd Generation 5.28 H (0.36-3.74) uIU/mL Urine Color Urine Appearance Urine pH (5.0-8.0) Ur Specific [place] (1.001-1.035) Urine Protein (NEGATIVE) mg/dL Urine Glucose (UA) (NEGATIVE) mg/dL Urine Ketones (NEGATIVE) mg/dL Urine Occult Blood (NEGATIVE) Urine Nitrite (NEGATIVE) Urine Bilirubin (NEGATIVE) Urine Urobilinogen (<2.0) EU/dL Ur Leukocyte Esterase (NEGATIVE) Urine Opiates Screen (NEGATIVE) Ur Oxycodone Screen (NEGATIVE) Urine Methadone Screen (NEGATIVE) Ur Barbiturates Screen (NEGATIVE) Ur Phencyclidine Scrn (NEGATIVE) Ur Amphetamine Screen (NEGATIVE) U Methamphetamines Scrn (NEGATIVE) U Benzodiazepines Scrn (NEGATIVE) U Cocaine Metab Screen (NEGATIVE) U Marijuana (THC) Screen (NEGATIVE) Ethyl Alcohol 3 mg/dL 09/11/19 09/11/19 09/11/19 Range/Units 17:31 17:31 18:03 WBC (4.0-11.0) K/uL RBC (4.30-5.90) M/uL Hgb (12.0-16.0) g/dL Hct (36.0-46.0) % MCV (80.0-98.0) fL MCH (27.0-32.0) pg MCHC (31.0-37.0) g/dL RDW Std Deviation (28.0-62.0) fl RDW Coeff of [place]eb[place] (11.0-15.0) % Plt Count (150-400) K/uL MPV (7.40-12.00) fL Neut % (Auto) (48.0-80.0) % Lymph % (Auto) (16.0-40.0) % [place] % (Auto) (0.0-15.0) % Eos % (Auto) (0.0-7.0) % Baso % (Auto) (0.0-1.5) % Neut # (Auto) (1.4-5.7) K/uL Lymph # (Auto) (0.6-2.4) K/uL [place] # (Auto) (0.0-0.8) K/uL Eos # (Auto) (0.0-0.7) K/uL Baso # (Auto) (0.0-0.1) K/uL Nucleated RBC % /100WBC Nucleated RBCs # K/uL INR APTT (18.6-31.3) SEC Sodium (136-145) mmol/L Potassium (3.5-5.1) mmol/L Chloride (98-107) mmol/L Carbon Dioxide (21.0-32.0) mmol/L BUN (7.0-18.0) mg/dL Creatinine (0.6-1.0) mg/dL Est Cr Clr Drug Dosing mL/min Estimated GFR (MDRD) ml/min Glucose (74-106) mg/dL Hemoglobin A1c 5.7 (4.5-6.2) % Calcium (8.5-10.1) mg/dL Total Bilirubin (0.2-1.0) mg/dL AST (15-37) IU/L ALT (14-63) IU/L Alkaline Phosphatase (46-116) U/L Troponin I (0.000-0.056) ng/mL Total Protein (6.4-8.2) g/dL Albumin (3.4-5.0) g/dL Globulin (2.6-4.0) g/dL Albumin/Globulin Ratio (0.9-1.6) Free T4 0.99 (0.76-1.46) ng/dL TSH 3rd Generation (0.36-3.74) uIU/mL Urine Color YELLOW Urine Appearance CLEAR Urine pH 6.0 (5.0-8.0) Ur Specific [place] 1.025 (1.001-1.035) Urine Protein NEGATIVE (NEGATIVE) mg/dL Urine Glucose (UA) NEGATIVE (NEGATIVE) mg/dL Urine Ketones NEGATIVE (NEGATIVE) mg/dL Urine Occult Blood NEGATIVE (NEGATIVE) Urine Nitrite NEGATIVE (NEGATIVE) Urine Bilirubin NEGATIVE (NEGATIVE) Urine Urobilinogen 0.2 (<2.0) EU/dL Ur Leukocyte Esterase NEGATIVE (NEGATIVE) Urine Opiates Screen (NEGATIVE) Ur Oxycodone Screen (NEGATIVE) Urine Methadone Screen (NEGATIVE) Ur Barbiturates Screen (NEGATIVE) Ur Phencyclidine Scrn (NEGATIVE) Ur Amphetamine Screen (NEGATIVE) U Methamphetamines Scrn (NEGATIVE) U Benzodiazepines Scrn (NEGATIVE) U Cocaine Metab Screen (NEGATIVE) U Marijuana (THC) Screen (NEGATIVE) Ethyl Alcohol mg/dL 20 Range/Units 18:03 WBC (4.0-11.0) K/uL RBC (4.30-5.90) M/uL Hgb (12.0-16.0) g/dL Hct (36.0-46.0) % MCV (80.0-98.0) fL MCH (27.0-32.0) pg MCHC (31.0-37.0) g/dL RDW Std Deviation (28.0-62.0) fl RDW Coeff of [place]eb[place] (11.0-15.0) % Plt Count (150-400) K/uL MPV (7.40-12.00) fL Neut % (Auto) (48.0-80.0) % Lymph % (Auto) (16.0-40.0) % [place] % (Auto) (0.0-15.0) % Eos % (Auto) (0.0-7.0) % Baso % (Auto) (0.0-1.5) % Neut # (Auto) (1.4-5.7) K/uL Lymph # (Auto) (0.6-2.4) K/uL [place] # (Auto) (0.0-0.8) K/uL Eos # (Auto) (0.0-0.7) K/uL Baso # (Auto) (0.0-0.1) K/uL Nucleated RBC % /100WBC Nucleated RBCs # K/uL INR APTT (18.6-31.3) SEC Sodium (136-145) mmol/L Potassium (3.5-5.1) mmol/L Chloride (98-107) mmol/L Carbon Dioxide (21.0-32.0) mmol/L BUN (7.0-18.0) mg/dL Creatinine (0.6-1.0) mg/dL Est Cr Clr Drug Dosing mL/min Estimated GFR (MDRD) ml/min Glucose (74-106) mg/dL Hemoglobin A1c (4.5-6.2) % Calcium (8.5-10.1) mg/dL Total Bilirubin (0.2-1.0) mg/dL AST (15-37) IU/L ALT (14-63) IU/L Alkaline Phosphatase (46-116) U/L Troponin I (0.000-0.056) ng/mL Total Protein (6.4-8.2) g/dL Albumin (3.4-5.0) g/dL Globulin (2.6-4.0) g/dL Albumin/Globulin Ratio (0.9-1.6) Free T4 (0.76-1.46) ng/dL TSH 3rd Generation (0.36-3.74) uIU/mL Urine Color Urine Appearance Urine pH (5.0-8.0) Ur Specific [place] (1.001-1.035) Urine Protein (NEGATIVE) mg/dL Urine Glucose (UA) (NEGATIVE) mg/dL Urine Ketones (NEGATIVE) mg/dL Urine Occult Blood (NEGATIVE) Urine Nitrite (NEGATIVE) Urine Bilirubin (NEGATIVE) Urine Urobilinogen (<2.0) EU/dL Ur Leukocyte Esterase (NEGATIVE) Urine Opiates Screen NEGATIVE (NEGATIVE) Ur Oxycodone Screen NEGATIVE (NEGATIVE) Urine Methadone Screen NEGATIVE (NEGATIVE) Ur Barbiturates Screen NEGATIVE (NEGATIVE) Ur Phencyclidine Scrn NEGATIVE (NEGATIVE) Ur Amphetamine Screen NEGATIVE (NEGATIVE) U Methamphetamines Scrn NEGATIVE (NEGATIVE) U Benzodiazepines Scrn NEGATIVE (NEGATIVE) U Cocaine Metab Screen NEGATIVE (NEGATIVE) U Marijuana (THC) Screen NEGATIVE (NEGATIVE) Ethyl Alcohol mg/dL Result Diagrams: 09/11/19 17:31 09/11/19 17:31 Sepsis Event Note - Evaluation Sepsis Screening Result: No Definite Risk - Focused Exam Vital Signs: Vital Signs Temp Pulse Resp BP BP Pulse Ox 09/11/19 20:00 56 L 18 145/63 H 97 09/11/19 19:30 55 L 18 141/62 H 98 09/11/19 19:15 57 L 18 90/50 L 95 09/11/19 18:45 57 L 18 88/46 L 95 09/11/19 18:15 56 L 19 97/49 L 94 L 09/11/19 18:00 55 L 19 96/57 L 93 L 09/11/19 17:45 59 L 19 95/58 L 94 L 09/11/19 17:30 64 19 94/48 L 94 L 09/11/19 16:48 36.0 C L 73 16 95/54 L 92 L Date Exam was Performed: 09/12/19 Time Exam was Performed: 01:24 - Problem List (1) TIA (transient ischemic attack) SNOMED Code(s): 889961324 ICD Code: G45.9 - TRANSIENT CEREBRAL ISCHEMIC ATTACK, UNSPECIFIED Status: Acute Current Visit: Yes (2) CVA (cerebral vascular accident) SNOMED Code(s): 251859662 ICD Code: I63.9 - CEREBRAL INFARCTION, UNSPECIFIED Status: Chronic Current Visit: No (3) HTN (hypertension) SNOMED Code(s): 54699992 ICD Code: I10 - ESSENTIAL (PRIMARY) HYPERTENSION Status: Chronic Current Visit: No (4) Congestive heart failure (CHF) SNOMED Code(s): 24239408 ICD Code: I50.9 - HEART FAILURE, UNSPECIFIED Status: Suspected Current Visit: No Qualifiers: Heart failure type: unspecified Heart failure chronicity: acute Qualified Code(s): I50.9 - Heart failure, unspecified (5) Transaminitis SNOMED Code(s): 865202463, 511552109 ICD Code: R74.0 - NONSPEC ELEV OF LEVELS OF TRANSAMNS & LACTIC ACID DEHYDRGNSE Status: Acute Current Visit: Yes Problem List Initiated/Reviewed/Updated: Yes Orders Last 24hrs: Active Orders 24 hr Category Date Time Status Admission Status [Patient Status] [ADT] Stat ADT 09/11/19 20:04 Active Ambulate [RC] ASDIRECTED Care 09/11/19 21:14 Active Antiembolic Devices [RC] PER UNIT ROUTINE Care 09/11/19 21:16 Active Assess Neurological Status [RC] ASDIRECTED Care 09/11/19 17:09 Active Bedrest [RC] ASDIRECTED Care 09/11/19 17:09 Active Blood Glucose Check, Bedside [RC] ONETIME Care 09/11/19 17:09 Active Cardiac Monitoring [RC] . DIRECTED Care 09/11/19 17:09 Active EKG Documentation Completion [RC] STAT Care 09/11/19 17:09 Active Height and Weight [RC] UPON Care 09/11/19 17:09 Active Initiate Acute Stroke Protocol [RC] STAT Care 09/11/19 17:09 Active NIH Stroke Scale [RC] ASDIRECTED Care 09/11/19 17:09 Active Neuro Check [RC] BID Care 09/11/19 21:25 Active Nursing Bedside Swallow Screen [RC] ASDIRECTED Care 09/11/19 17:09 Active Oxygen Therapy [RC] ASDIRECTED Care 09/11/19 17:09 Active Oxygen Therapy [RC] PRN Care 09/11/19 21:14 Active Pulse Oximetry [RC] PRN Care 09/11/19 21:14 Active RT Aerosol Therapy [RC] ASDIRECTED Care 09/11/19 21:16 Active Stroke Education, General [RC] Click to Edit Care 09/11/19 17:09 Active VTE/DVT Education [RC] PER UNIT ROUTINE Care 09/11/19 21:14 Active Vital Signs [RC] Q15M Care 09/11/19 17:09 Active Vital Signs [RC] Q4H Care 09/11/19 21:14 Active Heart Healthy Diet [DIET] Diet 09/12/19 Breakfast Active Ang Head wo Cont [MR] Routine Exams 09/11/19 21:21 Ordered Ang Neck w Cont [MR] Routine Exams 09/11/19 21:21 Ordered Brain wo Cont [MR] Routine Exams 09/11/19 21:21 Ordered CBC WITH AUTO DIFF [HEME] AM Lab 09/12/19 05:11 Ordered COMPREHENSIVE METABOLIC PN,CMP [CHEM] AM Lab 09/12/19 05:11 Ordered LIPID PANEL [CHEM] AM Lab 09/12/19 05:11 Ordered MAGNESIUM [CHEM] AM Lab 09/12/19 05:11 Ordered PHOSPHORUS [CHEM] AM Lab 09/12/19 05:11 Ordered Albuterol/Ipratropium [DuoNeb 3.0-0.5 MG/3 ML] Med 09/11/19 21:14 Active 3 ml NEB Q4HRRT PRN Ascorbic Acid [Vitamin C] Med 09/12/19 09:00 Active 1,000 mg PO DAILY Aspirin [Halfprin] Med 09/12/19 09:00 Active 81 mg PO DAILY Calcium Carbonate Med 09/12/19 09:00 Active 600 mg PO DAILY Celecoxib [Celecoxib] Med 09/12/19 09:00 Active 200 mg PO DAILY Cholecalciferol (Vitamin D3) Med 09/12/19 09:00 Active 5,000 unit PO DAILY Folic Acid Med 09/12/19 09:00 Active 0.4 mg PO DAILY Multivitamins [Tab-A-Ritchie] Med 09/12/19 09:00 Active 1 tab PO DAILY [place]-3 Fatty Acids/Fish Oil [Fish Oil 1,200 mg Softgel Med 09/12/19 09:00 Active ] 1 each PO DAILY Omeprazole Med 09/12/19 07:30 Active 20 mg PO ACBREAKFAST PARoxetine [Paxil] Med 09/12/19 09:00 Active 20 mg PO DAILY Simvastatin [Zocor] Med 09/12/19 21:00 Active 20 mg PO BEDTIME Sodium Chloride 0.9% [Normal Saline] Med 09/11/19 17:09 Active 10 ml IV ASDIRECTED PRN Sodium Chloride 0.9% [Normal Saline] 1,000 ml Med 09/11/19 19:15 Active IV ASDIRECTED Sodium Chloride 0.9% [Saline Flush] Med 09/11/19 17:09 Active 10 ml FLUSH ASDIRECTED PRN Sodium Chloride 0.9% [Saline Flush] Med 09/11/19 17:09 Active 2.5 ml FLUSH ASDIRECTED PRN Peripheral IV Insertion Adult [OM.PC] Stat Oth 09/11/19 17:09 Ordered Peripheral IV Insertion Adult [OM.PC] Stat Oth 09/11/19 17:09 Ordered Sequential Compression Device [OM.PC] Per Unit Routine Oth 09/11/19 21:15 Ordered Resuscitation Status Routine Resus Stat 09/11/19 21:14 Ordered Medication Orders Albuterol/Ipratropium (Duoneb 3.0-0.5 Mg/3 Ml) 3 ml NEB Q4HRRT PRN PRN Reason: Shortness Of Breath/wheezing Aspirin (Halfprin) 81 mg PO DAILY CATHIE Sodium Chloride (Normal Saline) 1,000 mls @ 125 mls/hr IV ASDIRECTED CATHIE Last Admin: 09/11/19 19:17 Dose: 125 mls/hr Multivitamins/Minerals/Vitamin C (Tab-A-Ritchie) 1 tab PO DAILY CATHIE Non-Formulary Medication (Ascorbic Acid [Vitamin C]) 1,000 mg PO DAILY CATHIE Non-Formulary Medication (Calcium Carbonate) 600 mg PO DAILY CATHIE Non-Formulary Medication (Celecoxib [Celecoxib]) 200 mg PO DAILY CATHIE Non-Formulary Medication (Cholecalciferol (Vitamin D3)) 5,000 unit PO DAILY CATHIE Non-Formulary Medication (Folic Acid) 0.4 mg PO DAILY CATHIE Non-Formulary Medication ([place]-3 Fatty Acids/Fish Oil [Fish Oil 1,200 Mg Softgel]) 1 each PO DAILY CATHIE Omeprazole (Omeprazole) 20 mg PO ACBREAKFAST CATHIE Paroxetine HCl (Paxil) 20 mg PO DAILY CATHIE Simvastatin (Zocor) 20 mg PO BEDTIME CATHIE Sodium Chloride (Saline Flush) 10 ml FLUSH ASDIRECTED PRN PRN Reason: Keep Vein Open Sodium Chloride (Saline Flush) 2.5 ml FLUSH ASDIRECTED PRN PRN Reason: Keep Vein Open Sodium Chloride (Normal Saline) 10 ml IV ASDIRECTED PRN PRN Reason: IV Use Assessment/Plan Comment:: 79 y/o F admitted for left foot numbness CT head negative Symptoms resolved now has H/O CVA, could be TIA Possible MRI/MRA Allow Permissive HTN check HBA1c, lipid panel. TSH Monitor and replete electrolyses Transaminitis, hold Tylenol Trend LFTS, if worsen will obtain US liver, hepatitis profile Resume home meds, hold Antihypertensives
[2019-09-12] MEDS ORDERED: Omeprazole 20 MG Cap.CR PO SCH (07:30)
[2019-09-12 07:31] LABS: BLOOD UREA NITROGEN,BUN 17 mg/dL (7.0-18.0); CARBON DIOXIDE,CO2 28.2 mmol/L (21.0-32.0); CHLORIDE,CL 106 mmol/L (98-107); GLUCOSE RANDOM 99 mg/dL (74-106); POTASSIUM,K 4.2 mmol/L (3.5-5.1); SODIUM,NA 141 mmol/L (136-145)
[2019-09-12] MEDS ORDERED: Non-Formulary Medication 1 Each (Ascorbic Acid [Vitamin C] 1,000 MG) PO SCH (09:00)
[2019-09-12] MEDS ORDERED: Non-Formulary Medication 1 Each (Calcium Carbonate 600 MG) PO SCH (09:00)
[2019-09-12] MEDS ORDERED: Non-Formulary Medication 1 Each (Nifedipine [Adalat Cc] 60 MG) PO SCH (09:00)
[2019-09-12] MEDS ORDERED: FOLIC ACID 0.4 MG PO SCH (09:00)
[2019-09-12] MEDS ORDERED: Multivitamin Tab PO SCH (09:00)
[2019-09-12] MEDS ORDERED: Aspirin 81 MG Tab.EC PO SCH (09:00)
[2019-09-12] MEDS ORDERED: Non-Formulary Medication 1 Each (Celecoxib [Celecoxib] 200 MG) PO SCH (09:00)
[2019-09-12] MEDS ORDERED: Ascorbic Acid 500 MG Tab PO SCH (10:41)
[2019-09-12] MEDS ORDERED: Fish Oil/Omega-3 Fatty Acids 1 Gm Cap PO SCH (10:42)
[2019-09-12] MEDS ORDERED: Celecoxib 100 MG Cap PO SCH (10:43)
[2019-09-12] MEDS ORDERED: Calcium Carbonate 500 MG Tablet PO SCH (10:45)
[2019-09-12] MEDS ORDERED: Cholecalciferol (Vitamin D3) 25 MCG Tab PO SCH (10:50)
[2019-09-12] MEDS: Gadobenate Dimeglumine 529 MG/ML 20 ML SDV IVPUSH STA ×2 (12:00→12:01)
[2019-09-12] MEDS ORDERED: Magnesium Oxide 400 MG Tab PO ONE (12:41)
--- NOTE | 2019-09-12 13:01 | MR ---
Indication Left lower extremity numbness. TECHNIQUE: MRI brain: Multiplanar multisequence noncontrast MR images were acquired. MRA head: 3D [id number] images were acquired. MRA neck: 3D [id number] and postcontrast images were acquired. COMPARISON: CT brain 09/11/2019. 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 There is associated ex vacuo dilatation of the left lateral ventricle. Small chronic infarctions within the left paracentral lobule and parasagittal left superior frontal gyrus. Mild diffuse cerebral volume loss. No mass effect or midline shift. Scattered and patchy T2 FLAIR hyperintensities in the supratentorial white matter and erika, nonspecific though typical for sequelae of mild chronic microvascular ischemic changes. No diffusion restriction to suggest acute infarction. No recent intracranial hemorrhage or pathologic extra-axial fluid collection. 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 The major arterial flow voids of the skullbase are preserved. The globes are symmetric in size. Mild mucosal thickening in the right maxillary sinus. Moderate right mastoid effusion. MRA head: Artifact mildly degrades image quality. The visualized internal carotid, middle cerebral, and anterior cerebral arteries are patent without significant narrowing. The vertebral, basilar, and posterior cerebral arteries are patent without significant narrowing. No intracranial aneurysm. MRA neck: Motion artifact degrades [id number] images. Approximately 50 percent narrowing of the proximal right cervical internal carotid artery. No significant narrowing of the left cervical internal carotid artery. Occluded left subclavian artery origin with opacification of the left subclavian artery more distally via the left vertebral artery, compatible with subclavian steal. No significant vertebral artery narrowing. IMPRESSION: MRI brain: 1. No acute infarction, mass effect, or recent intracranial hemorrhage. 2. 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 Small chronic infarctions within the left paracentral lobule and low parasagittal left superior frontal gyrus. 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 3. Mild chronic microvascular ischemic changes and mild diffuse cerebral volume loss. 4. Moderate right mastoid effusion. MRA head/neck: 1. No significant narrowing of the visualized intracranial arteries. 2. Approximately 50 percent narrowing of the proximal right cervical internal carotid artery. 3. Occluded left subclavian artery origin with opacification of the left subclavian artery more distally via the left vertebral artery, compatible with subclavian steal. Dictated by Mateo Snyder MD @ Sep 12 2019 12:42PM Signed by Dr. Mateo Snyder @ Sep 12 2019 1:01PM
--- NOTE | 2019-09-12 13:03 | MR ---
Indication Left lower extremity numbness. TECHNIQUE: MRI brain: Multiplanar multisequence noncontrast MR images were acquired. MRA head: 3D [id number] images were acquired. MRA neck: 3D [id number] and postcontrast images were acquired. COMPARISON: CT brain 09/11/2019. 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 There is associated ex vacuo dilatation of the left lateral ventricle. Small chronic infarctions within the left paracentral lobule and parasagittal left superior frontal gyrus. Mild diffuse cerebral volume loss. No mass effect or midline shift. Scattered and patchy T2 FLAIR hyperintensities in the supratentorial white matter and erika, nonspecific though typical for sequelae of mild chronic microvascular ischemic changes. No diffusion restriction to suggest acute infarction. No recent intracranial hemorrhage or pathologic extra-axial fluid collection. 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 The major arterial flow voids of the skullbase are preserved. The globes are symmetric in size. Mild mucosal thickening in the right maxillary sinus. Moderate right mastoid effusion. MRA head: Artifact mildly degrades image quality. The visualized internal carotid, middle cerebral, and anterior cerebral arteries are patent without significant narrowing. The vertebral, basilar, and posterior cerebral arteries are patent without significant narrowing. No intracranial aneurysm. MRA neck: Motion artifact degrades [id number] images. Approximately 50 percent narrowing of the proximal right cervical internal carotid artery. No significant narrowing of the left cervical internal carotid artery. Occluded left subclavian artery origin with opacification of the left subclavian artery more distally via the left vertebral artery, compatible with subclavian steal. No significant vertebral artery narrowing. IMPRESSION: MRI brain: 1. No acute infarction, mass effect, or recent intracranial hemorrhage. 2. 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 Small chronic infarctions within the left paracentral lobule and parasagittal left superior frontal gyrus. 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 3. Mild chronic microvascular ischemic changes and mild diffuse cerebral volume loss. 4. Moderate right mastoid effusion. MRA head/neck: 1. No significant narrowing of the visualized intracranial arteries. 2. Approximately 50 percent narrowing of the proximal right cervical internal carotid artery. 3. Occluded left subclavian artery origin with opacification of the left subclavian artery more distally via the left vertebral artery, compatible with subclavian steal. Dictated by Mateo Snyder MD @ Sep 12 2019 12:42PM Signed by Dr. Mateo Snyder @ Sep 12 2019 1:02PM
--- NOTE | 2019-09-12 13:03 | MR ---
Indication Left lower extremity numbness. TECHNIQUE: MRI brain: Multiplanar multisequence noncontrast MR images were acquired. MRA head: 3D [id number] images were acquired. MRA neck: 3D [id number] and postcontrast images were acquired. COMPARISON: CT brain 09/11/2019. 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 There is associated ex vacuo dilatation of the left lateral ventricle. Small chronic infarctions within the left paracentral lobule and parasagittal left superior frontal gyrus. Mild diffuse cerebral volume loss. No mass effect or midline shift. Scattered and patchy T2 FLAIR hyperintensities in the supratentorial white matter and erika, nonspecific though typical for sequelae of mild chronic microvascular ischemic changes. No diffusion restriction to suggest acute infarction. No recent intracranial hemorrhage or pathologic extra-axial fluid collection. 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 The major arterial flow voids of the skullbase are preserved. The globes are symmetric in size. Mild mucosal thickening in the right maxillary sinus. Moderate right mastoid effusion. MRA head: Artifact mildly degrades image quality. The visualized internal carotid, middle cerebral, and anterior cerebral arteries are patent without significant narrowing. The vertebral, basilar, and posterior cerebral arteries are patent without significant narrowing. No intracranial aneurysm. MRA neck: Motion artifact degrades [id number] images. Approximately 50 percent narrowing of the proximal right cervical internal carotid artery. No significant narrowing of the left cervical internal carotid artery. Occluded left subclavian artery origin with opacification of the left subclavian artery more distally via the left vertebral artery, compatible with subclavian steal. No significant vertebral artery narrowing. IMPRESSION: MRI brain: 1. No acute infarction, mass effect, or recent intracranial hemorrhage. 2. 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 Small chronic infarctions within the left paracentral lobule and low parasagittal left superior frontal gyrus. 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 3. Mild chronic microvascular ischemic changes and mild diffuse cerebral volume loss. 4. Moderate right mastoid effusion. MRA head/neck: 1. No significant narrowing of the visualized intracranial arteries. 2. Approximately 50 percent narrowing of the proximal right cervical internal carotid artery. 3. Occluded left subclavian artery origin with opacification of the left subclavian artery more distally via the left vertebral artery, compatible with subclavian steal. Dictated by Mateo Snyder MD @ Sep 12 2019 12:42PM Signed by Dr. Mateo Snyder @ Sep 12 2019 1:01PM
--- NOTE | 2019-09-12 14:22 | PCM.DCSUM1 ---
Discharge Summary - Discharge Data Discharge Date: 09/12/19 Discharge Disposition: Home, Self-Care 01 Condition: Fair - Referral to Home Health Primary Care Physician: Michelle Rodarte DO - Discharge Diagnosis/Problem(s) (1) TIA (transient ischemic attack) SNOMED Code(s): 067043599 ICD Code: G45.9 - TRANSIENT CEREBRAL ISCHEMIC ATTACK, UNSPECIFIED Status: Acute Current Visit: Yes (2) CVA (cerebral vascular accident) SNOMED Code(s): 491065871 ICD Code: I63.9 - CEREBRAL INFARCTION, UNSPECIFIED Status: Chronic Current Visit: No (3) HTN (hypertension) SNOMED Code(s): 89994670 ICD Code: I10 - ESSENTIAL (PRIMARY) HYPERTENSION Status: Chronic Current Visit: No (4) Congestive heart failure (CHF) SNOMED Code(s): 27235042 ICD Code: I50.9 - HEART FAILURE, UNSPECIFIED Status: Suspected Current Visit: No Qualifiers: Heart failure type: unspecified Heart failure chronicity: acute Qualified Code(s): I50.9 - Heart failure, unspecified (5) Transaminitis SNOMED Code(s): 197570482, 915961175 ICD Code: R74.0 - NONSPEC ELEV OF LEVELS OF TRANSAMNS & LACTIC ACID DEHYDRGNSE Status: Acute Current Visit: Yes - Discharge Plan *PRESCRIPTION DRUG MONITORING PROGRAM REVIEWED*: Yes *COPY OF PRESCRIPTION DRUG MONITORING REPORT IN PATIENT JASON: Yes Home Medications: Home Meds Aspirin [Adult Low Dose Aspirin EC] 81 mg PO DAILY 06/16/18 [History] Omeprazole 20 mg PO ACBREAKFAST 06/16/18 [History] PARoxetine [Paxil] 20 mg PO DAILY 06/16/18 [History] atenoloL [Atenolol] 50 mg PO DAILY 06/16/18 [History] Celecoxib 200 mg PO DAILY 07/08/19 [History] Multivitamins [Tab-A-Ritchie] 1 each PO DAILY 07/08/19 [History] [place]-3 Fatty Acids/Fish Oil [Fish Oil 1,200 mg Softgel] 1 each PO DAILY [History] Acetaminophen [Tylenol Arthritis] 650 mg PO BID 09/11/19 [History] Ascorbic Acid [Vitamin C] 1,000 mg PO DAILY 09/11/19 [History] Calcium Carbonate [Calcium] 600 mg PO DAILY 09/11/19 [History] Cholecalciferol (Vitamin D3) [Vitamin D3] 5,000 unit PO DAILY 09/11/19 [History] Folic Acid 0.4 mg PO DAILY 09/11/19 [History] HCTZ/Triamterene [Maxzide 25-37.5 MG] 1 tab PO DAILY 09/11/19 [History] NIFEdipine [Adalat cc] 60 mg PO DAILY 09/11/19 [History] Simvastatin [Zocor] 20 mg PO BEDTIME 09/11/19 [History] Forms: ED Department Discharge Referrals: Michelle Rodarte DO [Primary Care Provider] - - Patient Data Vitals - Most Recent: Last Vital Signs Temp 36.3 C 09/12/19 08:00 Pulse 59 L 09/12/19 08:00 Resp 16 09/12/19 08:00 BP 115/65 09/12/19 09:14 Pulse Ox 93 L 09/12/19 08:00 Weight - Most Recent: 90.718 kg I&O - Last 24 hours: Intake & Output 09/11/19 09/12/19 09/12/19 22:59 06:59 14:59 Intake Total 350 Output Total 700 Balance -350 Lab Results - Last 24 hrs: Laboratory Results - last 24 hr 09/11/19 09/11/19 09/11/19 Range/Units 17:31 17:31 17:31 WBC 11.40 H (4.0-11.0) K/uL RBC 4.69 (4.30-5.90) M/uL Hgb 13.6 (12.0-16.0) g/dL Hct 43.5 (36.0-46.0) % MCV 92.8 (80.0-98.0) fL MCH 29.0 (27.0-32.0) pg MCHC 31.3 (31.0-37.0) g/dL RDW Std Deviation 48.2 (28.0-62.0) fl RDW Coeff of Bebo 14 (11.0-15.0) % Plt Count 319 (150-400) K/uL MPV 9.00 (7.40-12.00) fL Neut % (Auto) 72.8 (48.0-80.0) % Lymph % (Auto) 13.2 L (16.0-40.0) % Pender % (Auto) 9.7 (0.0-15.0) % Eos % (Auto) 3.9 (0.0-7.0) % Baso % (Auto) 0.4 (0.0-1.5) % Neut # (Auto) 8.3 H (1.4-5.7) K/uL Lymph # (Auto) 1.5 (0.6-2.4) K/uL Pender # (Auto) 1.1 H (0.0-0.8) K/uL Eos # (Auto) 0.5 (0.0-0.7) K/uL Baso # (Auto) 0.1 (0.0-0.1) K/uL Nucleated RBC % 0.0 /100WBC Nucleated RBCs # 0 K/uL INR 0.98 APTT 24.3 (18.6-31.3) SEC Sodium 140 (136-145) mmol/L Potassium 4.3 (3.5-5.1) mmol/L Chloride 104 (98-107) mmol/L Carbon Dioxide 28.5 (21.0-32.0) mmol/L BUN 22 H (7.0-18.0) mg/dL Creatinine 1.0 (0.6-1.0) mg/dL Est Cr Clr Drug Dosing 42.39 mL/min Estimated GFR (MDRD) 53.8 ml/min Glucose 100 (74-106) mg/dL Hemoglobin A1c (4.5-6.2) % Calcium 9.2 (8.5-10.1) mg/dL Phosphorus (2.6-4.7) mg/dL Magnesium (1.8-2.4) mg/dL Total Bilirubin 0.3 (0.2-1.0) mg/dL AST 215 H (15-37) IU/L ALT 369 H (14-63) IU/L Alkaline Phosphatase 442 H (46-116) U/L Troponin I < 0.050 (0.000-0.056) ng/mL Total Protein 6.9 (6.4-8.2) g/dL Albumin 3.5 (3.4-5.0) g/dL Globulin 3.4 (2.6-4.0) g/dL Albumin/Globulin Ratio 1.0 (0.9-1.6) Triglycerides (0-200) mg/dL Cholesterol (50-200) mg/dL LDL Cholesterol, Calc (60-180) mg/dL VLDL Cholesterol (5-55) mg/dL HDL Cholesterol (40-60) mg/dL Cholesterol/HDL Ratio (3.3-6.0) Free T4 (0.76-1.46) ng/dL TSH 3rd Generation 5.28 H (0.36-3.74) uIU/mL Urine Color Urine Appearance Urine pH (5.0-8.0) Ur Specific [place] (1.001-1.035) Urine Protein (NEGATIVE) mg/dL Urine Glucose (UA) (NEGATIVE) mg/dL Urine Ketones (NEGATIVE) mg/dL Urine Occult Blood (NEGATIVE) Urine Nitrite (NEGATIVE) Urine Bilirubin (NEGATIVE) Urine Urobilinogen (<2.0) EU/dL Ur Leukocyte Esterase (NEGATIVE) Urine Opiates Screen (NEGATIVE) Ur Oxycodone Screen (NEGATIVE) Urine Methadone Screen (NEGATIVE) Ur Barbiturates Screen (NEGATIVE) Ur Phencyclidine Scrn (NEGATIVE) Ur Amphetamine Screen (NEGATIVE) U Methamphetamines Scrn (NEGATIVE) U Benzodiazepines Scrn (NEGATIVE) U Cocaine Metab Screen (NEGATIVE) U Marijuana (THC) Screen (NEGATIVE) Ethyl Alcohol 3 mg/dL 09/11/19 09/11/19 09/11/19 Range/Units 17:31 17:31 18:03 WBC (4.0-11.0) K/uL RBC (4.30-5.90) M/uL Hgb (12.0-16.0) g/dL Hct (36.0-46.0) % MCV (80.0-98.0) fL MCH (27.0-32.0) pg MCHC (31.0-37.0) g/dL RDW Std Deviation (28.0-62.0) fl RDW Coeff of Bebo (11.0-15.0) % Plt Count (150-400) K/uL MPV (7.40-12.00) fL Neut % (Auto) (48.0-80.0) % Lymph % (Auto) (16.0-40.0) % Pender % (Auto) (0.0-15.0) % Eos % (Auto) (0.0-7.0) % Baso % (Auto) (0.0-1.5) % Neut # (Auto) (1.4-5.7) K/uL Lymph # (Auto) (0.6-2.4) K/uL Pender # (Auto) (0.0-0.8) K/uL Eos # (Auto) (0.0-0.7) K/uL Baso # (Auto) (0.0-0.1) K/uL Nucleated RBC % /100WBC Nucleated RBCs # K/uL INR APTT (18.6-31.3) SEC Sodium (136-145) mmol/L Potassium (3.5-5.1) mmol/L Chloride (98-107) mmol/L Carbon Dioxide (21.0-32.0) mmol/L BUN (7.0-18.0) mg/dL Creatinine (0.6-1.0) mg/dL Est Cr Clr Drug Dosing mL/min Estimated GFR (MDRD) ml/min Glucose (74-106) mg/dL Hemoglobin A1c 5.7 (4.5-6.2) % Calcium (8.5-10.1) mg/dL Phosphorus (2.6-4.7) mg/dL Magnesium (1.8-2.4) mg/dL Total Bilirubin (0.2-1.0) mg/dL AST (15-37) IU/L ALT (14-63) IU/L Alkaline Phosphatase (46-116) U/L Troponin I (0.000-0.056) ng/mL Total Protein (6.4-8.2) g/dL Albumin (3.4-5.0) g/dL Globulin (2.6-4.0) g/dL Albumin/Globulin Ratio (0.9-1.6) Triglycerides (0-200) mg/dL Cholesterol (50-200) mg/dL LDL Cholesterol, Calc (60-180) mg/dL VLDL Cholesterol (5-55) mg/dL HDL Cholesterol (40-60) mg/dL Cholesterol/HDL Ratio (3.3-6.0) Free T4 0.99 (0.76-1.46) ng/dL TSH 3rd Generation (0.36-3.74) uIU/mL Urine Color YELLOW Urine Appearance CLEAR Urine pH 6.0 (5.0-8.0) Ur Specific [place] 1.025 (1.001-1.035) Urine Protein NEGATIVE (NEGATIVE) mg/dL Urine Glucose (UA) NEGATIVE (NEGATIVE) mg/dL Urine Ketones NEGATIVE (NEGATIVE) mg/dL Urine Occult Blood NEGATIVE (NEGATIVE) Urine Nitrite NEGATIVE (NEGATIVE) Urine Bilirubin NEGATIVE (NEGATIVE) Urine Urobilinogen 0.2 (<2.0) EU/dL Ur Leukocyte Esterase NEGATIVE (NEGATIVE) Urine Opiates Screen (NEGATIVE) Ur Oxycodone Screen (NEGATIVE) Urine Methadone Screen (NEGATIVE) Ur Barbiturates Screen (NEGATIVE) Ur Phencyclidine Scrn (NEGATIVE) Ur Amphetamine Screen (NEGATIVE) U Methamphetamines Scrn (NEGATIVE) U Benzodiazepines Scrn (NEGATIVE) U Cocaine Metab Screen (NEGATIVE) U Marijuana (THC) Screen (NEGATIVE) Ethyl Alcohol mg/dL 09/11/19 09/12/19 09/12/19 Range/Units 18:03 06:15 06:15 WBC 8.66 (4.0-11.0) K/uL RBC 4.42 (4.30-5.90) M/uL Hgb 12.8 (12.0-16.0) g/dL Hct 41.1 (36.0-46.0) % MCV 93.0 (80.0-98.0) fL MCH 29.0 (27.0-32.0) pg MCHC 31.1 (31.0-37.0) g/dL RDW Std Deviation 48.7 (28.0-62.0) fl RDW Coeff of Bebo 14 (11.0-15.0) % Plt Count 285 (150-400) K/uL MPV 9.00 (7.40-12.00) fL Neut % (Auto) 60.9 (48.0-80.0) % Lymph % (Auto) 23.6 (16.0-40.0) % Pender % (Auto) 9.4 (0.0-15.0) % Eos % (Auto) 5.5 (0.0-7.0) % Baso % (Auto) 0.6 (0.0-1.5) % Neut # (Auto) 5.3 (1.4-5.7) K/uL Lymph # (Auto) 2.0 (0.6-2.4) K/uL [place] # (Auto) 0.8 (0.0-0.8) K/uL Eos # (Auto) 0.5 (0.0-0.7) K/uL Baso # (Auto) 0.1 (0.0-0.1) K/uL Nucleated RBC % 0.0 /100WBC Nucleated RBCs # 0 K/uL INR APTT (18.6-31.3) SEC Sodium 141 (136-145) mmol/L Potassium 4.2 (3.5-5.1) mmol/L Chloride 106 (98-107) mmol/L Carbon Dioxide 28.2 (21.0-32.0) mmol/L BUN 17 (7.0-18.0) mg/dL Creatinine 0.8 (0.6-1.0) mg/dL Est Cr Clr Drug Dosing 52.99 mL/min Estimated GFR (MDRD) > 60.0 ml/min Glucose 99 (74-106) mg/dL Hemoglobin A1c (4.5-6.2) % Calcium 9.1 (8.5-10.1) mg/dL Phosphorus 3.7 (2.6-4.7) mg/dL Magnesium 1.7 L (1.8-2.4) mg/dL Total Bilirubin 0.4 (0.2-1.0) mg/dL AST 136 H (15-37) IU/L ALT 296 H (14-63) IU/L Alkaline Phosphatase 380 H (46-116) U/L Troponin I (0.000-0.056) ng/mL Total Protein 6.1 L (6.4-8.2) g/dL Albumin 3.1 L (3.4-5.0) g/dL Globulin 3.0 (2.6-4.0) g/dL Albumin/Globulin Ratio 1.0 (0.9-1.6) Triglycerides 44 (0-200) mg/dL Cholesterol 127 (50-200) mg/dL LDL Cholesterol, Calc 41 L (60-180) mg/dL VLDL Cholesterol 8 (5-55) mg/dL HDL Cholesterol 77 H (40-60) mg/dL Cholesterol/HDL Ratio 1.6 L (3.3-6.0) Free T4 (0.76-1.46) ng/dL TSH 3rd Generation (0.36-3.74) uIU/mL Urine Color Urine Appearance Urine pH (5.0-8.0) Ur Specific [place] (1.001-1.035) Urine Protein (NEGATIVE) mg/dL Urine Glucose (UA) (NEGATIVE) mg/dL Urine Ketones (NEGATIVE) mg/dL Urine Occult Blood (NEGATIVE) Urine Nitrite (NEGATIVE) Urine Bilirubin (NEGATIVE) Urine Urobilinogen (<2.0) EU/dL Ur Leukocyte Esterase (NEGATIVE) Urine Opiates Screen NEGATIVE (NEGATIVE) Ur Oxycodone Screen NEGATIVE (NEGATIVE) Urine Methadone Screen NEGATIVE (NEGATIVE) Ur Barbiturates Screen NEGATIVE (NEGATIVE) Ur Phencyclidine Scrn NEGATIVE (NEGATIVE) Ur Amphetamine Screen NEGATIVE (NEGATIVE) U Methamphetamines Scrn NEGATIVE (NEGATIVE) U Benzodiazepines Scrn NEGATIVE (NEGATIVE) U Cocaine Metab Screen NEGATIVE (NEGATIVE) U Marijuana (THC) Screen NEGATIVE (NEGATIVE) Ethyl Alcohol mg/dL Med Orders - Current: Current Medications Albuterol/Ipratropium (Duoneb 3.0-0.5 Mg/3 Ml) 3 ml NEB Q4HRRT PRN PRN Reason: Shortness Of Breath/wheezing Ascorbic Acid (Vitamin C) 1,000 mg PO DAILY [facility] Aspirin (Halfprin) 81 mg PO DAILY [facility] Last Admin: 09/12/19 12:00 Dose: 81 mg Calcium Carbonate/Glycine (Oyster Shell Calcium) 500 mg PO DAILY [facility] Celecoxib (Celebrex) 200 mg PO DAILY [facility] Cholecalciferol (Vitamin D3) 125 mcg PO DAILY [facility] Fish Oil (Fish Oil) 1 gm PO DAILY [facility] Sodium Chloride (Normal Saline) 1,000 mls @ 125 mls/hr IV ASDIRECTED [facility] Last Admin: 09/11/19 19:17 Dose: 125 mls/hr Multivitamins/Minerals/Vitamin C (Tab-A-Ritchie) 1 tab PO DAILY [facility] Last Admin: 09/12/19 12:00 Dose: 1 tab Omeprazole (Omeprazole) 20 mg PO ACBREAKFAST [facility] Last Admin: 09/12/19 08:01 Dose: 20 mg Paroxetine HCl (Paxil) 20 mg PO DAILY [facility] Last Admin: 09/12/19 12:00 Dose: 20 mg Folic Acid 0.4 Mg 1 each PO DAILY [facility] Last Admin: 09/12/19 12:00 Dose: Not Given Simvastatin (Zocor) 20 mg PO BEDTIME [facility] Sodium Chloride (Saline Flush) 10 ml FLUSH ASDIRECTED PRN PRN Reason: Keep Vein Open Sodium Chloride (Saline Flush) 2.5 ml FLUSH ASDIRECTED PRN PRN Reason: Keep Vein Open Sodium Chloride (Normal Saline) 10 ml IV ASDIRECTED PRN PRN Reason: IV Use Discontinued Medications Gadobenate Dimeglumine (Multihance) 20 ml IVPUSH ONETIME STA Stop: 09/12/19 10:40 Last Admin: 09/12/19 12:01 Dose: 16 ml Magnesium Oxide (Magnesium Oxide) 800 mg PO ONETIME ONE Stop: 09/12/19 12:42 Last Admin: 09/12/19 13:31 Dose: 800 mg Non-Formulary Medication (Ascorbic Acid [Vitamin C]) 1,000 mg PO DAILY [facility] Last Admin: 09/12/19 12:01 Dose: Not Given Non-Formulary Medication (Calcium Carbonate) 600 mg PO DAILY [facility] Last Admin: 09/12/19 12:01 Dose: Not Given Non-Formulary Medication (Celecoxib [Celecoxib]) 200 mg PO DAILY [facility] Last Admin: 09/12/19 12:01 Dose: Not Given Non-Formulary Medication (Cholecalciferol (Vitamin D3)) 5,000 unit PO DAILY [facility] Last Admin: 09/12/19 12:01 Dose: Not Given Non-Formulary Medication (Folic Acid) 0.4 mg PO DAILY [facility] Last Admin: 09/12/19 12:01 Dose: Not Given Non-Formulary Medication (Nifedipine [Adalat Cc]) 60 mg PO DAILY [facility] Non-Formulary Medication ([place]-3 Fatty Acids/Fish Oil [Fish Oil 1,200 Mg Softgel]) 1 each PO DAILY [facility] Last Admin: 09/12/19 12:02 Dose: Not Given
[2019-09-12] MEDS ORDERED: Simvastatin 20 MG Tab PO SCH (21:00)
== END 2019-09-12 15:30 | disposition home or self-care (01) ==
LOC: MW.ED 16:39 → MW.MS 20:04
PROVIDERS: ADMIT Student in an Organized Health Care Education/Training Program; ATTEND Student in an Organized Health Care Education/Training Program
DX: G45.9 Transient cerebral ischemic attack, unspecified (principal); I10 Essential (primary) hypertension; E78.00 Pure hypercholesterolemia, unspecified; I11.0 Hypertensive heart disease with heart failure; I50.9 Heart failure, unspecified; F41.9 Anxiety disorder, unspecified; R74.0 Nonspecific elevation of levels of transaminase and lactic acid dehydrogenase [LDH]; Z79.899 Other long term (current) drug therapy; Z88.0 Allergy status to penicillin; Z79.82 Long term (current) use of aspirin; Z86.73 Personal history of transient ischemic attack (TIA), and cerebral infarction without residual deficits
CPT/HCPCS: 36415; 70450; 70544; 70549; 70551; 71045; 80053; 80061; 80305; 80307; 81003; 83036; 83735; 84100; 84439; 84443; 84484; 85025; 85610; 85730; 93005; 96360; 96361; 99285; A9270; A9577; J7030; G0378

== ENCOUNTER 2020-01-12 22:13 | Observation (INO) | payer MEDICARE, OTHER ==
[2020-01-12] MEDS ORDERED: Sodium Chloride 0.9% 2.5 ML Syringe FLUSH PRN ×2 (22:18)
[2020-01-12] MEDS ORDERED: Sodium Chloride 0.9% 10 ML Syringe FLUSH PRN (22:18)
[2020-01-12] MEDS ORDERED: Sodium Chloride 0.9% 1,000 ML IV ONE (22:24)
--- NOTE | 2020-01-12 22:33 | EDM.PDOC ---
ED HPI GENERAL MEDICAL PROBLEM - General Chief Complaint: General Stated Complaint: FAINTED Time Seen by Provider: 01/12/20 22:14 - History of Present Illness INITIAL COMMENTS - FREE TEXT/NARRATIVE: History of present illness: Patient presents via EMS from home after having a syncopal episode where she fell down and was on the floor for approximately an hour she denies any injury did not hit her head she complains of no pain she states before she passed out she suddenly felt dizzy like she was lightheaded and then she fell down she was weak and unable to get up she denies any focal weakness. She states she is not injured. She has a history of stroke hypertension and has a new cancerous thyroid growth that she has been referred to the cancer center for treatment in [place]. There is never any shortness of breath chest pain or other problems Review of systems: As per history of present illness and below otherwise all systems reviewed and negative. Past medical history: As per history of present illness and as reviewed below otherwise noncontributory. Surgical history: As per history of present illness and as reviewed below otherwise noncontributory. Social history: No reported history of drug or alcohol abuse. Family history: As per history of present illness and as reviewed below otherwise noncontributory. Physical exam: HEENT: Atraumatic, normocephalic, pupils reactive, negative for conjunctival pallor or scleral icterus, mucous membranes moist, throat clear, neck supple, nontender, trachea midline. Lungs: Clear to auscultation, breath sounds equal bilaterally, chest nontender. Heart: S1S2, regular, negative for clicks, rubs, or JVD. Abdomen: Soft, nondistended, nontender. Negative for masses or hepatosplenomegaly. Negative for costovertebral tenderness. Pelvis: Stable nontender. Genitourinary: Deferred. Rectal: Deferred. Extremities: Atraumatic, negative for cords or calf pain. Neurovascular unremarkable. Neuro: Awake, alert, oriented. Cranial nerves II through XII unremarkable. Cerebellum unremarkable. Motor and sensory unremarkable throughout. Exam nonfocal. Diagnostics: [] Therapeutics: [] Impression: [] Plan: Cardiac work-up fluids reassess [] Definitive disposition and diagnosis as appropriate pending reevaluation and review of above. 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, IV/IO neck area Pain Score (Numeric/FACES): 8 - Related Data Allergies Allergy/AdvReac Type Severity Reaction Status Date / Time Penicillins Allergy Rash Verified 01/12/20 22:16 Home Meds: Home Meds Aspirin [Adult Low Dose Aspirin EC] 81 mg PO DAILY 06/16/18 [History] Omeprazole 20 mg PO ACBREAKFAST 06/16/18 [History] PARoxetine [Paxil] 20 mg PO DAILY 06/16/18 [History] atenoloL [Atenolol] 50 mg PO DAILY 06/16/18 [History] Celecoxib 200 mg PO DAILY 07/08/19 [History] Multivitamins [Tab-A-Ritchie] 1 each PO DAILY 07/08/19 [History] [place]-3 Fatty Acids/Fish Oil [Fish Oil 1,200 mg Softgel] 1 each PO DAILY 07/08/19 [History] Ascorbic Acid [Vitamin C] 1,000 mg PO DAILY 09/11/19 [History] Calcium Carbonate [Calcium] 600 mg PO DAILY 09/11/19 [History] Cholecalciferol (Vitamin D3) [Vitamin D3] 5,000 unit PO DAILY 09/11/19 [History] Folic Acid 0.4 mg PO DAILY 09/11/19 [History] HCTZ/Triamterene [Maxzide 25-37.5 MG] 1 tab PO DAILY 09/11/19 [History] NIFEdipine [Adalat cc] 60 mg PO DAILY 09/11/19 [History] atorvaSTATin Calcium [Lipitor] 40 mg PO DAILY 01/13/20 [History] Past Medical History HEENT History: Reports: None Cardiovascular History: Reports: High Cholesterol, Hypertension Respiratory History: Reports: None Gastrointestinal History: Reports: GERD Genitourinary History: Reports: None 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 Musculoskeletal History: Reports: Arthritis Neurological History: Reports: CVA Other Neuro History: November 2016 Psychiatric History: Reports: Anxiety Endocrine/Metabolic History: Reports: None 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 Hematologic History: Reports: None Immunologic History: Reports: None Oncologic (Cancer) History: Reports: Thyroid Dermatologic History: Reports: None - Infectious Disease History Infectious Disease History: Reports: None - Past Surgical History Head Surgeries/Procedures: Reports: None HEENT Surgical History: Reports: Other (See Below) Other HEENT Surgeries/Procedures: wears eye glass GI Surgical History: Reports: Colonoscopy Social & Family History - Family History Family Medical History: Noncontributory - Tobacco Use Smoking Status *Q: Never Smoker - Caffeine Use Caffeine Use: Reports: Coffee, Soda - Recreational Drug Use Recreational Drug Use: No ED ROS GENERAL - Review of Systems Review Of Systems: See Below ED EXAM, GENERAL - Physical Exam Exam: See Below EKG INTERPRETATION EKG Interpretation Comments: EKG is normal sinus rhythm rate of 73 bpm no ischemic changes read and interpreted by me normal intervals are present. Course - Vital Signs Text/Narrative:: Patient presents with syncope and weakness prolonged downtime she had a UTI on her urine study she was given Macrobid in the ED I discussed the case with Dr. Gilbert at 12:35 AM and he will accept the patient for admission hobs for syncope with a history of congestive heart failure. Last Recorded V/S: Last Vital Signs Temp 36.0 C L 01/12/20 22:15 Pulse 60 01/12/20 23:35 Resp 18 01/12/20 23:35 BP 108/70 01/12/20 23:35 Pulse Ox 98 01/12/20 23:35 - Orders/Labs/Meds Orders: Active Orders 24 hr Category Date Time Status Sodium Chloride 0.9% [Saline Flush] Med 01/12/20 22:18 Active 10 ml FLUSH ASDIRECTED PRN Sodium Chloride 0.9% [Saline Flush] Med 01/12/20 22:18 Active 2.5 ml FLUSH ASDIRECTED PRN Sodium Chloride 0.9% [Saline Flush] Med 01/12/20 22:18 Active 2.5 ml FLUSH ASDIRECTED PRN Saline Lock Insert [OM.PC] Stat Oth 01/12/20 22:18 Ordered Medication Orders Sodium Chloride (Saline Flush) 2.5 ml FLUSH ASDIRECTED PRN PRN Reason: Keep Vein Open Sodium Chloride (Saline Flush) 10 ml FLUSH ASDIRECTED PRN PRN Reason: Keep Vein Open Sodium Chloride (Saline Flush) 2.5 ml FLUSH ASDIRECTED PRN PRN Reason: Keep Vein Open Labs: Laboratory Tests 01/12/20 01/12/20 01/12/20 Range/Units 22:32 22:32 22:32 WBC 12.46 H (4.0-11.0) K/uL RBC 4.99 (4.30-5.90) M/uL Hgb 14.3 (12.0-16.0) g/dL Hct 44.2 (36.0-46.0) % MCV 88.6 (80.0-98.0) fL MCH 28.7 (27.0-32.0) pg MCHC 32.4 (31.0-37.0) g/dL RDW Std Deviation 45.0 (28.0-62.0) fl RDW Coeff of [place] 14 (11.0-15.0) % Plt Count 300 (150-400) K/uL MPV 9.00 (7.40-12.00) fL Neut % (Auto) 82.2 H (48.0-80.0) % Lymph % (Auto) 9.1 L (16.0-40.0) % [place] % (Auto) 7.3 (0.0-15.0) % Eos % (Auto) 1.1 (0.0-7.0) % Baso % (Auto) 0.3 (0.0-1.5) % Neut # (Auto) 10.2 H (1.4-5.7) K/uL Lymph # (Auto) 1.1 (0.6-2.4) K/uL [place] # (Auto) 0.9 H (0.0-0.8) K/uL Eos # (Auto) 0.1 (0.0-0.7) K/uL Baso # (Auto) 0.0 (0.0-0.1) K/uL Nucleated RBC % 0.0 /100WBC Nucleated RBCs # 0 K/uL Sodium 137 (136-145) mmol/L Potassium 4.3 (3.5-5.1) mmol/L Chloride 102 (98-107) mmol/L Carbon Dioxide 26.4 (21.0-32.0) mmol/L BUN 24 H (7.0-18.0) mg/dL Creatinine 1.2 H (0.6-1.0) mg/dL Est Cr Clr Drug Dosing 35.33 mL/min Estimated GFR (MDRD) 43.6 ml/min Glucose 190 H (74-106) mg/dL Calcium 8.9 (8.5-10.1) mg/dL Total Bilirubin 0.3 (0.2-1.0) mg/dL AST 96 H (15-37) IU/L ALT 109 H (14-63) IU/L Alkaline Phosphatase 311 H (46-116) U/L Creatine Kinase 94 (26-308) U/L Troponin I < 0.050 (0.000-0.056) ng/mL B-Natriuretic Peptide 81 (<100) PG/ML Total Protein 8.1 (6.4-8.2) g/dL Albumin 3.4 (3.4-5.0) g/dL Globulin 4.7 H (2.6-4.0) g/dL Albumin/Globulin Ratio 0.7 L (0.9-1.6) Urine Color Urine Appearance Urine pH (5.0-8.0) Ur Specific [place] (1.001-1.035) Urine Protein (NEGATIVE) mg/dL Urine Glucose (UA) (NEGATIVE) mg/dL Urine Ketones (NEGATIVE) mg/dL Urine Occult Blood (NEGATIVE) Urine Nitrite (NEGATIVE) Urine Bilirubin (NEGATIVE) Urine Urobilinogen (<2.0) EU/dL Ur Leukocyte Esterase (NEGATIVE) Urine RBC (0-2/HPF) Urine WBC (0-5/HPF) Ur Epithelial Cells (NONE-FEW) Urine Bacteria (NEGATIVE) Urine Mucus (NONE-MOD) 01/12/20 Range/Units 23:21 WBC (4.0-11.0) K/uL RBC (4.30-5.90) M/uL Hgb (12.0-16.0) g/dL Hct (36.0-46.0) % MCV (80.0-98.0) fL MCH (27.0-32.0) pg MCHC (31.0-37.0) g/dL RDW Std Deviation (28.0-62.0) fl RDW Coeff of [place] (11.0-15.0) % Plt Count (150-400) K/uL MPV (7.40-12.00) fL Neut % (Auto) (48.0-80.0) % Lymph % (Auto) (16.0-40.0) % [place] % (Auto) (0.0-15.0) % Eos % (Auto) (0.0-7.0) % Baso % (Auto) (0.0-1.5) % Neut # (Auto) (1.4-5.7) K/uL Lymph # (Auto) (0.6-2.4) K/uL [place] # (Auto) (0.0-0.8) K/uL Eos # (Auto) (0.0-0.7) K/uL Baso # (Auto) (0.0-0.1) K/uL Nucleated RBC % /100WBC Nucleated RBCs # K/uL Sodium (136-145) mmol/L Potassium (3.5-5.1) mmol/L Chloride (98-107) mmol/L Carbon Dioxide (21.0-32.0) mmol/L BUN (7.0-18.0) mg/dL Creatinine (0.6-1.0) mg/dL Est Cr Clr Drug Dosing mL/min Estimated GFR (MDRD) ml/min Glucose (74-106) mg/dL Calcium (8.5-10.1) mg/dL Total Bilirubin (0.2-1.0) mg/dL AST (15-37) IU/L ALT (14-63) IU/L Alkaline Phosphatase (46-116) U/L Creatine Kinase (26-308) U/L Troponin I (0.000-0.056) ng/mL B-Natriuretic Peptide (<100) PG/ML Total Protein (6.4-8.2) g/dL Albumin (3.4-5.0) g/dL Globulin (2.6-4.0) g/dL Albumin/Globulin Ratio (0.9-1.6) Urine Color YELLOW Urine Appearance HAZY Urine pH 6.0 (5.0-8.0) Ur Specific [place] 1.020 (1.001-1.035) Urine Protein NEGATIVE (NEGATIVE) mg/dL Urine Glucose (UA) NEGATIVE (NEGATIVE) mg/dL Urine Ketones NEGATIVE (NEGATIVE) mg/dL Urine Occult Blood NEGATIVE (NEGATIVE) Urine Nitrite NEGATIVE (NEGATIVE) Urine Bilirubin NEGATIVE (NEGATIVE) Urine Urobilinogen 0.2 (<2.0) EU/dL Ur Leukocyte Esterase TRACE H (NEGATIVE) Urine RBC 0-2 (0-2/HPF) Urine WBC 2-4 (0-5/HPF) Ur Epithelial Cells FEW (NONE-FEW) Urine Bacteria 3+ H (NEGATIVE) Urine Mucus LIGHT (NONE-MOD) Meds: Medications Generic Name Dose Route Start Last Admin Trade Name Payton PRN Reason Stop Dose Admin Sodium Chloride 2.5 ml 01/12/20 22:18 Saline Flush FLUSH ASDIRECTED PRN Keep Vein Open Sodium Chloride 10 ml 01/12/20 22:18 Saline Flush FLUSH ASDIRECTED PRN Keep Vein Open Sodium Chloride 2.5 ml 01/12/20 22:18 Saline Flush FLUSH ASDIRECTED PRN Keep Vein Open Discontinued Medications Generic Name Dose Route Start Last Admin Trade Name Payton PRN Reason Stop Dose Admin Sodium Chloride 1,000 mls @ 999 mls/hr 01/12/20 22:24 01/12/20 22:32 Normal Saline IV 01/12/20 23:24 999 mls/hr .Bolus ONE Administration Nitrofurantoin Macrocrystals 100 mg 01/13/20 00:21 01/13/20 00:28 Macrobid PO 01/13/20 00:22 100 mg ONETIME ONE Administration Departure - Departure Time of Disposition: 00:37 Disposition: Refer to Observation Condition: Good Clinical Impression: Syncope and collapse - Discharge Information *PRESCRIPTION DRUG MONITORING PROGRAM REVIEWED*: Not Applicable *COPY OF PRESCRIPTION DRUG MONITORING REPORT IN PATIENT JASON: Not Applicable Forms: ED Department Discharge Sepsis Event Note (ED) - Evaluation Sepsis Screening Result: No Definite Risk - Focused Exam Vital Signs: Vital Signs Temp Pulse Resp BP Pulse Ox 01/12/20 23:35 60 18 108/70 98 01/12/20 22:45 65 18 106/67 97 01/12/20 22:15 36.0 C L 74 18 101/59 L 90 L - My Orders Last 24 Hours: My Active Orders 01/12/20 22:18 Sodium Chloride 0.9% [Saline Flush] 10 ml FLUSH ASDIRECTED PRN Sodium Chloride 0.9% [Saline Flush] 2.5 ml FLUSH ASDIRECTED PRN Sodium Chloride 0.9% [Saline Flush] 2.5 ml FLUSH ASDIRECTED PRN Saline Lock Insert [OM.PC] Stat - Assessment/Plan Last 24 Hours: My Active Orders 01/12/20 22:18 Sodium Chloride 0.9% [Saline Flush] 10 ml FLUSH ASDIRECTED PRN Sodium Chloride 0.9% [Saline Flush] 2.5 ml FLUSH ASDIRECTED PRN Sodium Chloride 0.9% [Saline Flush] 2.5 ml FLUSH ASDIRECTED PRN Saline Lock Insert [OM.PC] Stat
[2020-01-12 23:00] LABS: BLOOD UREA NITROGEN,BUN 24 mg/dL (7.0-18.0); CARBON DIOXIDE,CO2 26.4 mmol/L (21.0-32.0); CHLORIDE,CL 102 mmol/L (98-107); GLUCOSE RANDOM 190 mg/dL (74-106); POTASSIUM,K 4.3 mmol/L (3.5-5.1); SODIUM,NA 137 mmol/L (136-145)
--- NOTE | 2020-01-12 23:06 | CR ---
HISTORY: Syncope and weakness COMPARISON: 09/11/2019 FINDINGS: A portable erect AP view of the chest was obtained at 22 35 hours. The lungs remain clear. No focal or diffuse infiltrates are present. The heart remains mildly enlarged. Again seen is a massive hiatal hernia. Again seen is fullness of the superior mediastinum, right greater than left, consistent with tortuosity of the ascending great vessels. The osseous structures are normal in appearance for the patient`s age. IMPRESSION: No active disease seen in the chest. No change in massive hiatal hernia. Dictated by Anderson Fermin MD @ Jan 12 2020 11:03PM Signed by Dr. Anderson Fermin @ Jan 12 2020 11:05PM
[2020-01-13] MEDS ORDERED: Nitrofurantoin Monohydrate/Macrocrystalline 100 MG Cap PO ONE (00:21)
[2020-01-13] MEDS: Acetaminophen 325 MG Tab PO PRN ×2 (02:42→14:15)
[2020-01-13] MEDS ORDERED: Ondansetron 4 MG/2 ML SDV IVPUSH PRN (08:07)
[2020-01-13] MEDS ORDERED: Sodium Chloride 0.9% 2.5 ML Syringe FLUSH PRN (08:11)
[2020-01-13] MEDS ORDERED: cefTRIAXone 1 GM in Premix Bag 1 BAG IV SCH (08:15)
[2020-01-13 08:58] LABS: CARBON DIOXIDE,CO2 30.4 mmol/L (21.0-32.0); POTASSIUM,K 3.8 mmol/L (3.5-5.1)
--- NOTE | 2020-01-13 08:59 | PCM.HP.2 ---
H&P History of Present Illness - General Date of Service: 01/13/20 Admit Problem/Dx: Admission Diagnosis/Problem Admission Diagnosis/Problem Syncope Source of Information: Patient History Limitations: Reports: No Limitations - History of Present Illness Initial Comments - Free Text/Narative: This 79 year old female with pmh of HTN, CVA, recently diagnoses thyroid cancer presented to the ED with complaints of a syncopal episode. She reports last evening she was vacuuming and suddenly became dizzy, lightheaded and blacked out. She woke up maybe 10 minutes later and was unable to get off the floor due to generalized weakness. She was brought to the ED, She reports she had no chest pain or palpitations. She was up vacuuming for awhile, had not recently bent down or gotten up from the chair. She denies recent illness or feeling ill. She had thyroid biopsy December 29 in [facility] and recently found out this is likely cancer. She Denies recent fever or chills, no abdominal pain. No diarrhea. No black or bloody BMs. Mild urinary urgency, no dysuria. She denies any focal debbie rological deficits. In the ED leukocytosis noted 12,460, glucose 190, AST 96, ALT 109, Alk phos 311. CXR revealed hiatal hernia, no change and mild cardiomegaly. UA revealed +3 bacteria, no pyuria. She was given Macrobid and I L NS in the ED. EKG SR with no ST elevation or other ischemic changes. Admitted observation for syncope and UTI. PCP, [facility] neck area Pain Score (Numeric/FACES): 8 - Related Data Allergies/Adverse Reactions: Allergies Allergy/AdvReac Type Severity Reaction Status Date / Time Penicillins Allergy Rash Verified 01/13/20 03:42 Home Medications: Home Meds Aspirin [Adult Low Dose Aspirin EC] 81 mg PO DAILY 06/16/18 [History] Omeprazole 40 mg PO ACBREAKFAST 06/16/18 [History] PARoxetine [Paxil] 20 mg PO DAILY 06/16/18 [History] atenoloL [Atenolol] 50 mg PO DAILY 06/16/18 [History] Celecoxib 200 mg PO DAILY 07/08/19 [History] Multivitamins [Tab-A-Ritchie] 1 each PO DAILY 07/08/19 [History] [place]-3 Fatty Acids/Fish Oil [Fish Oil 1,200 mg Softgel] 1 each PO DAILY 07/08/19 [History] Ascorbic Acid [Vitamin C] 1,000 mg PO DAILY 09/11/19 [History] Calcium Carbonate [Calcium] 600 mg PO DAILY 09/11/19 [History] Cholecalciferol (Vitamin D3) [Vitamin D3] 5,000 unit PO DAILY 09/11/19 [History] Folic Acid 0.4 mg PO DAILY 09/11/19 [History] HCTZ/Triamterene [Maxzide 25-37.5 MG] 1 tab PO DAILY 09/11/19 [History] NIFEdipine [Adalat cc] 60 mg PO DAILY 09/11/19 [History] Sulfamethoxazole/Trimethoprim [Bactrim Ds Tablet] 1 each PO BID #4 tablet 01/13/20 [Rx] atorvaSTATin Calcium [Lipitor] 40 mg PO DAILY 01/13/20 [History] Past Medical History HEENT History: Reports: None Cardiovascular History: Reports: High Cholesterol, Hypertension Respiratory History: Reports: None Gastrointestinal History: Reports: GERD Genitourinary History: Reports: None 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 Musculoskeletal History: Reports: Arthritis Neurological History: Reports: CVA Other Neuro History: November 2016 Psychiatric History: Reports: Anxiety Endocrine/Metabolic History: Reports: None Insulin Pump Model and Rn Gyn: None Hematologic History: Reports: None Immunologic History: Reports: None Oncologic (Cancer) History: Reports: Thyroid Dermatologic History: Reports: None - Infectious Disease History Infectious Disease History: Reports: None - Past Surgical History Head Surgeries/Procedures: Reports: None HEENT Surgical History: Reports: Other (See Below) Other HEENT Surgeries/Procedures: wears eye glass GI Surgical History: Reports: Colonoscopy Social & Family History - Family History Family Medical History: Noncontributory - Tobacco Use Smoking Status *Q: Never Smoker - Caffeine Use Caffeine Use: Reports: Coffee, Soda - Recreational Drug Use Recreational Drug Use: No H&P Review of Systems - Review of Systems: Review Of Systems: See Below General: Reports: No Symptoms. Denies: Fever, Chills, Malaise, Weakness HEENT: Reports: No Symptoms. Denies: Vertigo Pulmonary: Reports: No Symptoms. Denies: Shortness of Breath, Cough, Sputum Cardiovascular: Reports: Lightheadedness, Syncope. Denies: Chest Pain, Dyspnea on Exertion, Edema, Blood Pressure Problem Gastrointestinal: Reports: No Symptoms. Denies: Abdominal Pain, Black Stool, Bloody Stool, Vomiting Genitourinary: Reports: Urgency. Denies: Dysuria, Retention Musculoskeletal: Reports: No Symptoms Skin: Reports: No Symptoms Psychiatric: Reports: No Symptoms Neurological: Reports: Syncope Hematologic/Lymphatic: Reports: No Symptoms Immunologic: Reports: No Symptoms Exam - Exam Exam: See Below - Vital Signs Vital Signs: Last Vital Signs Temp 98.4 F 01/13/20 07:15 Pulse 64 01/13/20 08:56 Resp 17 01/13/20 07:15 BP 166/61 H 01/13/20 08:56 Pulse Ox 92 L 01/13/20 07:15 Weight: 91.172 kg - Exam General: Alert, Oriented, Cooperative HEENT: Conjunctiva Clear, Posterior Pharynx Clear. No: Pupils Equal (L pupil 4 mm, R 3 mm... reports this is chronic for her) Lungs: Clear to Auscultation, Normal Respiratory Effort Cardiovascular: Regular Rate, Regular Rhythm GI/Abdominal Exam: Normal Bowel Sounds, Soft, Non-Tender Neuro Extensive - Mental Status: Alert, Oriented x3 Neuro Extensive - Motor, Sensory, Reflexes: CN II-XII Intact Psychiatric: Alert, Normal Affect, Normal Mood - Patient Data Lab Results Last 24 hrs: Laboratory Results - last 24 hr 01/12/20 01/12/20 01/12/20 Range/Units 22:32 22:32 22:32 WBC 12.46 H (4.0-11.0) K/uL RBC 4.99 (4.30-5.90) M/uL Hgb 14.3 (12.0-16.0) g/dL Hct 44.2 (36.0-46.0) % MCV 88.6 (80.0-98.0) fL MCH 28.7 (27.0-32.0) pg MCHC 32.4 (31.0-37.0) g/dL RDW Std Deviation 45.0 (28.0-62.0) fl RDW Coeff of Bebo 14 (11.0-15.0) % Plt Count 300 (150-400) K/uL MPV 9.00 (7.40-12.00) fL Neut % (Auto) 82.2 H (48.0-80.0) % Lymph % (Auto) 9.1 L (16.0-40.0) % Barren % (Auto) 7.3 (0.0-15.0) % Eos % (Auto) 1.1 (0.0-7.0) % Baso % (Auto) 0.3 (0.0-1.5) % Neut # (Auto) 10.2 H (1.4-5.7) K/uL Lymph # (Auto) 1.1 (0.6-2.4) K/uL Barren # (Auto) 0.9 H (0.0-0.8) K/uL Eos # (Auto) 0.1 (0.0-0.7) K/uL Baso # (Auto) 0.0 (0.0-0.1) K/uL Nucleated RBC % 0.0 /100WBC Nucleated RBCs # 0 K/uL Sodium 137 (136-145) mmol/L Potassium 4.3 (3.5-5.1) mmol/L Chloride 102 (98-107) mmol/L Carbon Dioxide 26.4 (21.0-32.0) mmol/L BUN 24 H (7.0-18.0) mg/dL Creatinine 1.2 H (0.6-1.0) mg/dL Est Cr Clr Drug Dosing 35.33 mL/min Estimated GFR (MDRD) 43.6 ml/min Glucose 190 H (74-106) mg/dL Calcium 8.9 (8.5-10.1) mg/dL Total Bilirubin 0.3 (0.2-1.0) mg/dL AST 96 H (15-37) IU/L ALT 109 H (14-63) IU/L Alkaline Phosphatase 311 H (46-116) U/L Creatine Kinase 94 (26-308) U/L Troponin I < 0.050 (0.000-0.056) ng/mL B-Natriuretic Peptide 81 (<100) PG/ML Total Protein 8.1 (6.4-8.2) g/dL Albumin 3.4 (3.4-5.0) g/dL Globulin 4.7 H (2.6-4.0) g/dL Albumin/Globulin Ratio 0.7 L (0.9-1.6) Urine Color Urine Appearance Urine pH (5.0-8.0) Ur Specific [place] (1.001-1.035) Urine Protein (NEGATIVE) mg/dL Urine Glucose (UA) (NEGATIVE) mg/dL Urine Ketones (NEGATIVE) mg/dL Urine Occult Blood (NEGATIVE) Urine Nitrite (NEGATIVE) Urine Bilirubin (NEGATIVE) Urine Urobilinogen (<2.0) EU/dL Ur Leukocyte Esterase (NEGATIVE) Urine RBC (0-2/HPF) Urine WBC (0-5/HPF) Ur Epithelial Cells (NONE-FEW) Urine Bacteria (NEGATIVE) Urine Mucus (NONE-MOD) COVID-19 (SRINIVAS) (NEGATIVE) 01/12/20 01/13/20 01/13/20 Range/Units 23:21 00:35 08:24 WBC 9.83 (4.0-11.0) K/uL RBC 4.57 (4.30-5.90) M/uL Hgb 13.1 (12.0-16.0) g/dL Hct 41.0 (36.0-46.0) % MCV 89.7 (80.0-98.0) fL MCH 28.7 (27.0-32.0) pg MCHC 32.0 (31.0-37.0) g/dL RDW Std Deviation 45.8 (28.0-62.0) fl RDW Coeff of Bebo 14 (11.0-15.0) % Plt Count 261 (150-400) K/uL MPV 9.00 (7.40-12.00) fL Neut % (Auto) 69.2 (48.0-80.0) % Lymph % (Auto) 19.1 (16.0-40.0) % Barren % (Auto) 9.7 (0.0-15.0) % Eos % (Auto) 1.7 (0.0-7.0) % Baso % (Auto) 0.3 (0.0-1.5) % Neut # (Auto) 6.8 H (1.4-5.7) K/uL Lymph # (Auto) 1.9 (0.6-2.4) K/uL Barren # (Auto) 1.0 H (0.0-0.8) K/uL Eos # (Auto) 0.2 (0.0-0.7) K/uL Baso # (Auto) 0.0 (0.0-0.1) K/uL Nucleated RBC % 0.0 /100WBC Nucleated RBCs # 0 K/uL Sodium (136-145) mmol/L Potassium (3.5-5.1) mmol/L Chloride (98-107) mmol/L Carbon Dioxide (21.0-32.0) mmol/L BUN (7.0-18.0) mg/dL Creatinine (0.6-1.0) mg/dL Est Cr Clr Drug Dosing mL/min Estimated GFR (MDRD) ml/min Glucose (74-106) mg/dL Calcium (8.5-10.1) mg/dL Total Bilirubin (0.2-1.0) mg/dL AST (15-37) IU/L ALT (14-63) IU/L Alkaline Phosphatase (46-116) U/L Creatine Kinase (26-308) U/L Troponin I (0.000-0.056) ng/mL B-Natriuretic Peptide (<100) PG/ML Total Protein (6.4-8.2) g/dL Albumin (3.4-5.0) g/dL Globulin (2.6-4.0) g/dL Albumin/Globulin Ratio (0.9-1.6) Urine Color YELLOW Urine Appearance HAZY Urine pH 6.0 (5.0-8.0) Ur Specific [place] 1.020 (1.001-1.035) Urine Protein NEGATIVE (NEGATIVE) mg/dL Urine Glucose (UA) NEGATIVE (NEGATIVE) mg/dL Urine Ketones NEGATIVE (NEGATIVE) mg/dL Urine Occult Blood NEGATIVE (NEGATIVE) Urine Nitrite NEGATIVE (NEGATIVE) Urine Bilirubin NEGATIVE (NEGATIVE) Urine Urobilinogen 0.2 (<2.0) EU/dL Ur Leukocyte Esterase TRACE H (NEGATIVE) Urine RBC 0-2 (0-2/HPF) Urine WBC 2-4 (0-5/HPF) Ur Epithelial Cells FEW (NONE-FEW) Urine Bacteria 3+ H (NEGATIVE) Urine Mucus LIGHT (NONE-MOD) COVID-19 (SRINIVAS) NEGATIVE (NEGATIVE) Result Diagrams: 01/13/20 08:24 01/13/20 08:24 Sepsis Event Note - Evaluation Sepsis Screening Result: No Definite Risk - Focused Exam Vital Signs: Vital Signs Temp Pulse Resp BP BP Pulse Ox 01/13/20 08:56 64 166/61 H 01/13/20 08:54 59 L 164/69 H 01/13/20 08:47 62 145/61 H 01/13/20 07:15 98.4 F 60 17 124/67 92 L 01/13/20 05:30 120/60 01/13/20 04:19 97.3 F 61 17 95/51 L 93 L 01/13/20 01:40 98.2 F 59 L 18 106/56 L 93 L 01/13/20 01:00 97 F 58 L 18 131/57 L 97 01/12/20 23:35 60 18 108/70 98 01/12/20 22:45 65 18 106/67 97 01/12/20 22:15 96.8 F L 74 18 101/59 L 90 L Date Exam was Performed: 01/13/20 Time Exam was Performed: 14:44 - Problem List (1) Syncope and collapse SNOMED Code(s): 645123755 ICD Code: R55 - SYNCOPE AND COLLAPSE Status: Acute Current Visit: Yes (2) Transaminitis SNOMED Code(s): 637401020, 988795271 ICD Code: R74.0 - NONSPEC ELEV OF LEVELS OF TRANSAMNS & LACTIC ACID DEHYDRGNSE Status: Acute Current Visit: No (3) Urinary tract infection SNOMED Code(s): 98917227 ICD Code: N39.0 - URINARY TRACT INFECTION, SITE NOT SPECIFIED Status: Acute Current Visit: No Qualifiers: Urinary tract infection type: acute cystitis Hematuria presence: without hematuria Qualified Code(s): N30.00 - Acute cystitis without hematuria (4) CVA (cerebral vascular accident) SNOMED Code(s): 023179047 ICD Code: I63.9 - CEREBRAL INFARCTION, UNSPECIFIED Status: Chronic Current Visit: No (5) HTN (hypertension) SNOMED Code(s): 61968625 ICD Code: I10 - ESSENTIAL (PRIMARY) HYPERTENSION Status: Chronic Current Visit: No (6) Congestive heart failure (CHF) SNOMED Code(s): 28768880 ICD Code: I50.9 - HEART FAILURE, UNSPECIFIED Status: Chronic Current Visit: No Qualifiers: Heart failure type: unspecified Heart failure chronicity: acute Qualified Code(s): I50.9 - Heart failure, unspecified (7) Mild dehydration SNOMED Code(s): 6449570499585 ICD Code: E86.0 - DEHYDRATION Status: Acute Priority: High Current Visit: No Problem List Initiated/Reviewed/Updated: Yes Orders Last 24hrs: Active Orders 24 hr Category Date Time Status Patient Status [ADT] Routine ADT 01/13/20 00:38 Active EKG 12 Lead [EKG Documentation Completion] [RC] ROUTINE Care 01/13/20 08:01 Active Intake and Output [RC] QSHIFT Care 01/13/20 08:08 Active Orthostatic Vital Signs [RC] ONETIME Care 01/13/20 08:12 Active Oxygen Therapy [RC] PRN Care 01/13/20 08:07 Active Telemetry Monitoring [Cardiac Monitoring] [RC] Q8H Care 01/13/20 00:54 Active Up With Assistance [RC] ASDIRECTED Care 01/13/20 08:07 Active VTE/DVT Education [RC] PER UNIT ROUTINE Care 01/13/20 08:07 Active Vital Signs [RC] Q4H Care 01/13/20 08:07 Active Regular Diet [DIET] Diet 01/13/20 Breakfast Active Abdomen Ltd [US] Urgent Exams 01/13/20 08:10 Ordered Echo Comp wo Cont [US] Urgent Exams 01/13/20 08:57 Ordered COMPREHENSIVE METABOLIC PN,CMP [CHEM] Routine Lab 01/13/20 08:24 Received CULTURE URINE [RM] Routine Lab 01/13/20 08:06 Received HEPATITIS PANEL (4) [REF] Routine Lab 01/13/20 08:24 Received Acetaminophen [Tylenol] Med 01/13/20 01:58 Active 650 mg PO Q6H PRN Ondansetron [Zofran] Med 01/13/20 08:07 Active 4 mg IVPUSH Q4H PRN Sodium Chloride 0.9% [Saline Flush] Med 01/13/20 08:11 Active 2.5 ml FLUSH ASDIRECTED PRN cefTRIAXone [Rocephin in Dextrose,Iso-Osm 1 GM/50 ML] 1 Med 01/13/20 08:15 Active gm Premix Bag 1 bag IV Q24H Saline Lock Insert [OM.PC] Stat Oth 01/12/20 22:18 Ordered Resuscitation Status Routine Resus Stat 01/13/20 08:07 Ordered Medication Orders Acetaminophen (Tylenol) 650 mg PO Q6H PRN PRN Reason: Pain Last Admin: 01/13/20 02:42 Dose: 650 mg Documented by: SAMY Ceftriaxone Sodium/Dextrose 1 (gm/ Premix) 50 mls @ 100 mls/hr IV Q24H CATHIE Last Admin: 01/13/20 08:34 Dose: 100 mls/hr Documented by: RENETTA Ondansetron HCl (Zofran) 4 mg IVPUSH Q4H PRN PRN Reason: Nausea Sodium Chloride (Saline Flush) 2.5 ml FLUSH ASDIRECTED PRN PRN Reason: IV Use Assessment/Plan Comment:: This 79 year old female admitted with syncope and UTI 1. Syncope - Telemetry, no arrhythmias noted - Troponin negative - Orthostatic VS normal - Will obtain ECHO - Arrange ZIO patch for discharge - Maybe related to mild dehydration and UTI 2. UTI/Dehydration - Give Rocephin this morning - UC pending - 1 L NS given in ED, VS stable and RENETTA improved. 3. Transaminitis: - RUQ US obtained, fatty infiltration noted, no other acute findings. - Hepatitis panel pending. 4. HTN; - Continue home medications Discharge Plan: Stable, no acute arrhythmias noted. ECHO pending on discharge. She will be discharge home today with Bactrim for 2 more days. She is to follow up with PCP, wear ZIO patch for 14 days. Return to ED or clinic if concerns should arise. - Mortality Measure Prognosis:: Good
[2020-01-13] MEDS ORDERED: Atenolol 50 MG Tab PO SCH (09:15)
[2020-01-13] MEDS ORDERED: Aspirin 81 MG Tab.EC PO SCH (09:15)
[2020-01-13] MEDS ORDERED: Hydrochlorothiazide/Triamterene 25-37.5 Tab PO SCH (09:15)
[2020-01-13] MEDS ORDERED: NIFEdipine 30 MG Tab.ER PO SCH (09:15)
--- NOTE | 2020-01-13 10:22 | US ---
Limited abdominal ultrasound: Multiple real-time images of the upper right abdomen were obtained. Comparison: No prior abdominal imaging is available. Findings: Liver is mildly enlarged and appears echogenic most likely representing fatty infiltration. Gallbladder contains no shadowing gallstones. Minimal sludge is noted. No gallbladder wall thickening or biliary duct dilatation is seen. Inferior vena cava is patent. Aorta shows no aneurysm. Right kidney shows no hydronephrosis or mass. Right kidney has a length of 9.1 cm. Pancreas is incompletely seen. Visualized portions of the pancreas shows no discrete abnormality. Impression: 1. Changes of fatty infiltration within the liver as described above. 2. Minimal sludge within the gallbladder with no shadowing gallstones, gallbladder wall thickening or biliary duct dilatation. 3. No additional abnormality is identified on right upper quadrant abdominal ultrasound. Diagnostic code #2 This report was dictated in MDT
[2020-01-13] MEDS ORDERED: Celecoxib 100 MG Cap PO SCH (11:15)
[2020-01-14] MEDS ORDERED: Omeprazole 20 MG Cap.CR PO SCH (07:30)
--- NOTE | 2020-01-15 15:48 | ECHO ---
The echocardiogram report can be seen in this patient's EMR (Electronic Medical Record) in the Reports section. The report has also been scanned into PACS. CARMELLA
== END 2020-01-13 16:10 | disposition home or self-care (01) ==
LOC: MW.ED 22:13 → MW.MS 01-13 00:38
PROVIDERS: ADMIT Internal Medicine; ATTEND Internal Medicine
DX: R55 Syncope and collapse (principal); E78.00 Pure hypercholesterolemia, unspecified; K21.9 Gastro-esophageal reflux disease without esophagitis; F41.9 Anxiety disorder, unspecified; C73 Malignant neoplasm of thyroid gland; R74.0 Nonspecific elevation of levels of transaminase and lactic acid dehydrogenase [LDH]; N30.00 Acute cystitis without hematuria; I11.0 Hypertensive heart disease with heart failure; I50.9 Heart failure, unspecified; E86.0 Dehydration; Z20.828 Contact with and (suspected) exposure to other viral communicable diseases; Z88.0 Allergy status to penicillin; Z79.82 Long term (current) use of aspirin; Z79.899 Other long term (current) drug therapy; Z86.73 Personal history of transient ischemic attack (TIA), and cerebral infarction without residual deficits
CPT/HCPCS: 36415; 71045; 76705; 80053; 80074; 81001; 82550; 83880; 84484; 85025; 87086; 93005; 93306; 96361; 96365; 99285; A9270; G0378; J0696; J7030; U0002; 96360; 99284

== ENCOUNTER 2020-06-04 10:08 | Emergency (ER) | payer MEDICARE, OTHER ==
[2020-06-04] MEDS ORDERED: Sodium Chloride 0.9% 2.5 ML Syringe FLUSH PRN (10:11)
[2020-06-04] MEDS ORDERED: Sodium Chloride 0.9% 10 ML Syringe FLUSH PRN (10:11)
--- NOTE | 2020-06-04 10:17 | PCM.SN.2 ---
#1 Interpretation EKG Date: 06/04/20 Time: 10:17 Rhythm: NSR Rate (Beats/Min): 68 [place]: Normal P-Wave: Present QRS: Normal ST-T: Normal QT: Normal CT/PQ Interval: 185 Comparison: NA - No Prior EKG EKG Interpretation Comments: normal EKG
--- NOTE | 2020-06-04 10:19 | EDM.PDOC ---
ED HPI GENERAL MEDICAL PROBLEM - General Chief Complaint: Abdominal Pain Stated Complaint: STOMACH PAINS Time Seen by Provider: 06/04/20 10:11 Source of Information: Reports: Patient History Limitations: Reports: No Limitations - History of Present Illness INITIAL COMMENTS - FREE TEXT/NARRATIVE: HISTORY AND PHYSICAL: History of present illness: Patient is a 80-year-old female who presents to the emergency room with complaints of abdominal pain and nausea over the past 4 days. She states the pain initially started in the epigastric area and is now located in the umbilical region and does radiate to the left and right lower quadrants. She has had nausea without vomiting. Today the pain was more intense, she called EMS for transport to the emergency department. Upon arrival EMS gave her 4 mg of Zofran, she currently denies having any nausea. PMH of CVA, hypertension, and elevated cholesterol. Patient denies any fever, chills, headache, change in vision, syncope or near syncope. Denies any chest pain, back pain, shortness of breath or cough. Denies any diarrhea, constipation or dysuria. Has not noted any blood in urine or stool. Patient has been eating and drinking appropriately. Review of systems: As per history of present illness and below otherwise all systems reviewed and negative. Past medical history: As per history of present illness and as reviewed below otherwise noncontributory. Surgical history: As per history of present illness and as reviewed below otherwise noncontributory. Social history: See social history for further information Family history: As per history of present illness and as reviewed below otherwise noncontributory. Physical exam: General: Well developed and well nourished 80 year old female. Alert and orientated x 3. Nontoxic in appearance and in no acute distress. Vital signs are stable and have been reviewed by me. Nursing notes were reviewed. HEENT: Atraumatic, normocephalic, pupils equal and reactive bilaterally, negative for conjunctival pallor or scleral icterus, mucous membranes moist, trachea midline. No drooling or trismus noted. No meningeal signs. No hot potato voice noted. Lungs: Clear to auscultation, breath sounds equal bilaterally, chest nontender. Normal work of breathing, no accessory muscles used. Heart: S1S2, regular rate and rhythm without overt murmur Abdomen: Soft, nondistended, mid-abdominal tenderness. No rebound tenderness. Negative for masses or costovertebral tenderness. Pelvis: Stable nontender. Skin: Intact, warm, dry. No lesions or rashes noted. Hematologic: No petechiae or purpra. Mucosa appropriate color and normal nail bed color and refill. Extremities: Atraumatic, ambulatory, moves all extremities per self without difficulty or deficits, negative for cords or calf pain. Neurovascular unremarkable. Neuro: Awake, alert, oriented. Cranial nerves II through XII unremarkable. Cerebellum unremarkable. Motor and sensory unremarkable throughout. Exam nonfocal. Psychiatric: Mood and affect are appropriate. Normal thought process. Answering questions appropriately. Notes: Patient's chest x-ray shows no acute cardiopulmonary disease. She does have a large retrocardiac hiatal hernia noted. Abdominal CT shows a large hiatal hernia/intrathoracic stomach. No convincing evidence for gastric outlet obstruction. Somewhat thick-walled potentially edematous gastric antrum and duodenum may reflect active inflammation. Ulceration is not entirely excluded. Scattered arterial vascular calcification. Tiny renal cortical cysts. Multilevel degenerative disc disease of the lower thoracic/lumbar spine. I have talked with the patient about today's findings, in addition to providing specific details for plan of care. She states she is aware of the hernia, but has never seen a specialist about getting this fixed. She also reports she has been out of her omeprazole for few weeks. I will refill her omeprazole and give her a few tablets of Zofran for nausea ma nagement. She states she will call the general surgeon's office on Saturday to set up a follow-up appointment to possibly get in endoscopy. Reassessment at the time of disposition demonstrates that the patient is in no acute distress. The patient is stable for discharge, counseling was provided and we discussed in great detail signs and symptoms that would prompt them to return to the Emergency Department. Medication, follow up and supportive care measures were reviewed and discussed. Voices understanding and is agreeable to plan of care. Denies any further questions or concerns at this time. Diagnostics: CBC, CMP, Troponin, EKG, CXR, COVID, Lipase, UA Therapeutics: Saline lock Prescription: Omeprazole Impression: Abdominal Pain Hiatal hernia Plan: 1. Today your CT scan shows a large hiatal hernia that should be evaluated and possible scope by general surgeon. 2. Please take the omeprazole as directed. 3. We encourage you to follow up with your primary care provider and/or general surgeon next week for re-evaluation and further care/management. If your symptoms should worsen, new symptoms develop or any of the signs and symptoms we discussed should arise please return to the emergency room or call 911 (if needed). Definitive disposition and diagnosis as appropriate pending reevaluation and review of above. Duration: Day(s): Location: Reports: Abdomen abdom Pain Score (Numeric/FACES): 6 - Related Data Allergies Allergy/AdvReac Type Severity Reaction Status Date / Time Penicillins Allergy Rash Verified 06/04/20 10:11 Home Meds: Home Meds Aspirin [Adult Low Dose Aspirin EC] 81 mg PO DAILY 06/16/18 [History] Omeprazole 20 mg PO ACBREAKFAST 06/16/18 [History] PARoxetine [Paxil] 20 mg PO DAILY 06/16/18 [History] atenoloL [Atenolol] 50 mg PO DAILY 06/16/18 [History] Celecoxib 200 mg PO DAILY 07/08/19 [History] Multivitamins [Tab-A-Ritchie] 1 each PO DAILY 07/08/19 [History] Ronceverte-3 Fatty Acids/Fish Oil [Fish Oil 1,200 mg Softgel] 1,200 mg PO DAILY 07/08/19 [History] Ascorbic Acid [Vitamin C] 1,000 mg PO DAILY 09/11/19 [History] Calcium Carbonate [Calcium] 600 mg PO DAILY 09/11/19 [History] Cholecalciferol (Vitamin D3) [Vitamin D3] 5,000 unit PO DAILY 09/11/19 [History] Folic Acid 0.4 mg PO DAILY 09/11/19 [History] HCTZ/Triamterene [Maxzide 25-37.5 MG] 1 tab PO DAILY 09/11/19 [History] NIFEdipine [Adalat cc] 60 mg PO DAILY 09/11/19 [History] Acetaminophen [Tylenol Arthritis] 650 mg PO QID PRN 06/04/20 [History] Omeprazole 20 mg PO DAILY 30 Days #30 capsule. 06/04/20 [Rx] Simvastatin 20 mg PO BEDTIME 06/04/20 [History] Past Medical History HEENT History: Reports: None Cardiovascular History: Reports: High Cholesterol, Hypertension Respiratory History: Reports: None Gastrointestinal History: Reports: GERD Genitourinary History: Reports: None NEGATIVE RESTORER History: Reports: None Musculoskeletal History: Reports: Arthritis Neurological History: Reports: CVA Other Neuro History: November 2016 Psychiatric History: Reports: Anxiety Endocrine/Metabolic History: Reports: None Insulin Pump Model and Elevator Dispatcher: None Hematologic History: Reports: None Immunologic History: Reports: None Oncologic (Cancer) History: Reports: Thyroid Dermatologic History: Reports: None - Infectious Disease History Infectious Disease History: Reports: None - Past Surgical History Head Surgeries/Procedures: Reports: None HEENT Surgical History: Reports: Other (See Below) Other HEENT Surgeries/Procedures: wears eye glass GI Surgical History: Reports: Colonoscopy Social & Family History - Family History Family Medical History: No Pertinent Family History - Caffeine Use Caffeine Use: Reports: Coffee, Soda ED ROS GENERAL - Review of Systems Review Of Systems: Comprehensive ROS is negative, except as noted in HPI. ED EXAM, GI/ABD - Physical Exam Exam: See Below (See dictation) Course - Vital Signs Last Recorded V/S: Last Vital Signs Temp 96.6 F L 06/04/20 10:11 Pulse 61 06/04/20 12:56 Resp 16 06/04/20 12:56 BP 106/62 06/04/20 12:56 Pulse Ox 95 06/04/20 12:56 - Orders/Labs/Meds Orders: Active Orders 24 hr Category Date Time Status EKG Documentation Completion [RC] STAT Care 06/04/20 10:11 Active UA RFX ELIAS AND CULT IF INDIC [URIN] Stat Lab 06/04/20 10:11 Ordered Sodium Chloride 0.9% [Saline Flush] Med 06/04/20 10:11 Active 10 ml FLUSH ASDIRECTED PRN Sodium Chloride 0.9% [Saline Flush] Med 06/04/20 10:11 Active 2.5 ml FLUSH ASDIRECTED PRN Saline Lock Insert [OM.PC] Stat Oth 06/04/20 10:11 Ordered Medication Orders Sodium Chloride (Saline Flush) 10 ml FLUSH ASDIRECTED PRN PRN Reason: Keep Vein Open Last Admin: 06/04/20 10:19 Dose: 10 ml Documented by: JEFFREY Sodium Chloride (Saline Flush) 2.5 ml FLUSH ASDIRECTED PRN PRN Reason: Keep Vein Open Last Admin: 06/04/20 10:19 Dose: 2.5 ml Documented by: JEFFREY Labs: Laboratory Tests 06/04/20 06/04/20 06/04/20 Range/Units 10:17 10:17 11:17 WBC 11.33 H (4.0-11.0) K/uL RBC 4.87 (4.30-5.90) M/uL Hgb 14.5 (12.0-16.0) g/dL Hct 43.6 (36.0-46.0) % MCV 89.5 (80.0-98.0) fL MCH 29.8 (27.0-32.0) pg MCHC 33.3 (31.0-37.0) g/dL RDW Std Deviation 43.8 (28.0-62.0) fl RDW Coeff of Bebo 14 (11.0-15.0) % Plt Count 294 (150-400) K/uL MPV 9.20 (7.40-12.00) fL Neut % (Auto) 75.3 (48.0-80.0) % Lymph % (Auto) 12.1 L (16.0-40.0) % [place] % (Auto) 10.3 (0.0-15.0) % Eos % (Auto) 1.9 (0.0-7.0) % Baso % (Auto) 0.4 (0.0-1.5) % Neut # (Auto) 8.5 H (1.4-5.7) K/uL Lymph # (Auto) 1.4 (0.6-2.4) K/uL [place] # (Auto) 1.2 H (0.0-0.8) K/uL Eos # (Auto) 0.2 (0.0-0.7) K/uL Baso # (Auto) 0.1 (0.0-0.1) K/uL Nucleated RBC % 0.0 /100WBC Nucleated RBCs # 0 K/uL Sodium 135 L (136-145) mmol/L Potassium 3.7 (3.5-5.1) mmol/L Chloride 99 (98-107) mmol/L Carbon Dioxide 26.3 (21.0-32.0) mmol/L BUN 23 H (7.0-18.0) mg/dL Creatinine 1.2 H (0.6-1.0) mg/dL Est Cr Clr Drug Dosing 34.77 mL/min Estimated GFR (MDRD) 43.4 ml/min Glucose 120 H (74-106) mg/dL Calcium 9.2 (8.5-10.1) mg/dL Total Bilirubin 0.6 (0.2-1.0) mg/dL AST 78 H (15-37) IU/L ALT 95 H (14-63) IU/L Alkaline Phosphatase 226 H (46-116) U/L Troponin I < 0.050 (0.000-0.056) ng/mL Total Protein 7.9 (6.4-8.2) g/dL Albumin 3.7 (3.4-5.0) g/dL Globulin 4.2 H (2.6-4.0) g/dL Albumin/Globulin Ratio 0.9 (0.9-1.6) Lipase 182 (73-393) U/L SARS-CoV-2 RNA (SRINIVAS) NEGATIVE (NEGATIVE) Meds: Medications Generic Name Dose Route Start Last Admin Trade Name Freangela PRN Reason Stop Dose Admin Sodium Chloride 10 ml 06/04/20 10:11 06/04/20 10:19 Saline Flush FLUSH 10 ml ASDIRECTED PRN Administration Keep Vein Open Sodium Chloride 2.5 ml 06/04/20 10:11 06/04/20 10:19 Saline Flush FLUSH 2.5 ml ASDIRECTED PRN Administration Keep Vein Open Discontinued Medications Generic Name Dose Route Start Last Admin Trade Name Freangela PRN Reason Stop Dose Admin Iopamidol 100 ml 06/04/20 12:33 06/04/20 12:33 Isovue Multipack-370 (76%) IVPUSH 06/04/20 12:34 100 ml ONETIME ONE Administration Ondansetron HCl 4 mg 06/04/20 12:51 06/04/20 12:53 Zofran IVPUSH 06/04/20 12:52 4 mg ONETIME ONE Administration Departure - Departure Time of Disposition: 13:04 Disposition: Home, Self-Care 01 Clinical Impression: Hiatal hernia Abdominal pain Qualifiers: Abdominal location: epigastric Qualified Code(s): R10.13 - Epigastric pain - Discharge Information Prescriptions: Omeprazole 20 mg PO DAILY 30 Days #30 capsule.dr Instructions: Hernia, Adult, [id number] Referrals: PCP,None [Primary Care Provider] - Forms: ED Department Discharge Additional Instructions: The following information is given to patients seen in the emergency department who are being discharged to home. This information is to outline your options for follow-up care. We provide all patients seen in our emergency department with a follow-up referral. The need for follow-up, as well as the timing and circumstances, are variable depending upon the specifics of your emergency department visit. If you don't have a primary care physician on staff, we will provide you with a referral. We always advise you to contact your personal physician following an emergency department visit to inform them of the circumstance of the visit and for follow-up with them and/or the need for any referrals to a consulting specialist. The emergency department will also refer you to a specialist when appropriate. This referral assures that you have the opportunity for follow-up care with a specialist. All of these measure are taken in an effort to provide you with optimal care, which includes your follow-up. Under all circumstances we always encourage you to contact your private physician who remains a resource for coordinating your care. When calling for follow-up care, please make the office aware that this follow-up is from your recent emergency room visit. If for any reason you are refused follow-up, please contact the [facility] Emergency Department at and asked to speak to the emergency department charge nurse. [facility] Specialty Care - General Surgery Professional [address], [address] [place] [address] Thank you for choosing the [facility] emergency department in [place] for your medical needs today. It was a pleasure caring for you. Today you were seen in the emergency department for abdominal pain. 1. Today your CT scan shows a large hiatal hernia that should be evaluated and possible scope by general surgeon. 2. Please take the Omeprazole as directed. Zofran as needed for nausea. 3. We encourage you to follow up with your primary care provider and/or general surgeon next week for re-evaluation and further care/management. If your symptoms should worsen, new symptoms develop or any of the signs and symptoms we discussed should arise please return to the emergency room or call 911 (if needed). Sepsis Event Note (ED) - Evaluation Sepsis Screening Result: No Definite Risk - Focused Exam Vital Signs: Vital Signs Temp Pulse Resp BP Pulse Ox 06/04/20 12:56 61 16 106/62 95 06/04/20 10:11 96.6 F L 69 16 119/72 95 - My Orders Last 24 Hours: My Active Orders 06/04/20 10:11 EKG Documentation Completion [RC] STAT UA RFX ELIAS AND CULT IF INDIC [URIN] Stat Sodium Chloride 0.9% [Saline Flush] 10 ml FLUSH ASDIRECTED PRN Sodium Chloride 0.9% [Saline Flush] 2.5 ml FLUSH ASDIRECTED PRN Saline Lock Insert [OM.PC] Stat - Assessment/Plan Last 24 Hours: My Active Orders 06/04/20 10:11 EKG Documentation Completion [RC] STAT UA RFX ELIAS AND CULT IF INDIC [URIN] Stat Sodium Chloride 0.9% [Saline Flush] 10 ml FLUSH ASDIRECTED PRN Sodium Chloride 0.9% [Saline Flush] 2.5 ml FLUSH ASDIRECTED PRN Saline Lock Insert [OM.PC] Stat
[2020-06-04 10:47] LABS: BLOOD UREA NITROGEN,BUN 23 mg/dL (7.0-18.0); CARBON DIOXIDE,CO2 26.3 mmol/L (21.0-32.0); CHLORIDE,CL 99 mmol/L (98-107); GLUCOSE RANDOM 120 mg/dL (74-106); LIPASE 182 U/L (73-393); POTASSIUM,K 3.7 mmol/L (3.5-5.1); SODIUM,NA 135 mmol/L (136-145)
--- NOTE | 2020-06-04 11:00 | CR ---
INDICATION: Epigastric pain. TECHNIQUE: Chest 1 view. COMPARISON: 01/12/2020. FINDINGS: The heart size remains stable and is mildly enlarged, even allowing for AP portable technique. Central vascular markings are within the normal range. The lungs are clear of acute appearing infiltrates. A large retrocardiac hiatal hernia is again seen. IMPRESSION: 1. No acute cardiopulmonary disease is evident. 2. Large retrocardiac hiatal hernia. Dictated by Aren Banerjee MD @ Jun 04 2020 10:57AM Signed by Dr. Aren Banerjee @ Jun 04 2020 10:59AM
[2020-06-04] MEDS ORDERED: Iopamidol 755 MG/ML 500 ML Multipack Bottle IVPUSH ONE (12:33)
[2020-06-04] MEDS ORDERED: Ondansetron 4 MG/2 ML SDV IVPUSH ONE (12:51)
--- NOTE | 2020-06-04 12:53 | CT ---
INDICATION: Abdominal pain. Poor historian. Reported history of stroke. TECHNIQUE: Contrast-enhanced CT of the abdomen and pelvis. 100 cc nonionic Isovue-370 administered. COMPARISON: Correlation is made with a chest x-ray June 04, 2020. FINDINGS: Large hiatal hernia/intrathoracic stomach. Please see coronal reconstructed image 53 series 203. The duodenum appears to be patulous and the gastric antrum/duodenal wall is somewhat thickened potentially edematous. Antritis/duodenitis cannot be excluded. Clinical and laboratory correlation recommended. GI consultation may be helpful. There is no evidence for small or large bowel obstruction. No ascites or lymphadenopathy and no free air. The liver is negative for masses or biliary ductal dilatation. Small calcified splenic granulomas. The pancreas is unremarkable. The gallbladder is within normal limits. Normal adrenal glands. No hydronephrosis or solid renal mass. Few tiny cortical cysts bilaterally. Scattered vascular calcification within a normal caliber aorta and iliac arteries. The inferior vena cava is unremarkable. The urinary bladder is within normal limits. The uterus is unremarkable. No adnexal masses. No evidence for appendicitis or diverticulitis. Multilevel degenerative disc disease of the lower thoracic and lumbar spine. No acute compression fractures. IMPRESSION: 1. Large hiatal hernia/intrathoracic stomach. No convincing evidence for gastric outlet obstruction. 2. Somewhat thick-walled potentially edematous gastric antrum and duodenum may reflect active inflammation. Ulceration is not entirely excluded. Please correlate clinically. GI consultation may be helpful. 3. Scattered arterial vascular calcification. Tiny renal cortical cysts. Multilevel degenerative disc disease of the lower thoracic/lumbar spine. Please note that all CT scans at this facility use dose modulation, iterative reconstruction, and/or weight-based dosing when appropriate to reduce radiation dose to as low as reasonably achievable. Dictated by Edu Herrera MD @ Jun 04 2020 12:44PM Signed by Dr. Edu Herrera @ Jun 04 2020 12:52PM
== END 2020-06-04 13:31 | disposition home or self-care (01) ==
LOC: MW.ED 10:08
DX: K44.9 Diaphragmatic hernia without obstruction or gangrene (principal); E78.00 Pure hypercholesterolemia, unspecified; I10 Essential (primary) hypertension; K21.9 Gastro-esophageal reflux disease without esophagitis; M19.90 Unspecified osteoarthritis, unspecified site; F41.9 Anxiety disorder, unspecified; Z88.0 Allergy status to penicillin; Z79.82 Long term (current) use of aspirin; Z79.899 Other long term (current) drug therapy; Z86.73 Personal history of transient ischemic attack (TIA), and cerebral infarction without residual deficits; Z20.828 Contact with and (suspected) exposure to other viral communicable diseases
CPT/HCPCS: 36415; 71045; 74177; 80053; 83690; 84484; 85025; 93005; 96374; 99285; J2405; Q9967; U0002; 93010

== ENCOUNTER 2021-02-22 21:33 | Emergency (ER) | payer MEDICARE, OTHER ==
[2021-02-22] MEDS ORDERED: Acetaminophen 325 MG Tab PO ONE (23:22)
--- NOTE | 2021-02-22 23:40 | CR ---
INDICATION: Pain following feeling pop in knee TECHNIQUE: Knee radiograph 3 views left COMPARISON: 06/15/2019 FINDINGS: Bone: No acute fractures or aggressive bone lesions are identified. 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 No significant knee effusion is seen. Soft tissue: Unremarkable. No radiopaque foreign bodies are seen. IMPRESSION: 1. No acute osseous injuries or abnormalities are noted. Dictated by Blair Carrillo MD @ 02/22/2021 11:38:41 PM Dictated by: Blair Carrillo MD @ 02/22/2021 23:38:46 (Electronically Signed)
--- NOTE | 2021-02-23 00:26 | EDM.PDOC ---
ED HPI GENERAL MEDICAL PROBLEM - General Chief Complaint: Lower Extremity Injury/Pain Stated Complaint: KNEE POPPED CAN'T WALK Time Seen by Provider: 02/22/21 22:52 - History of Present Illness INITIAL COMMENTS - FREE TEXT/NARRATIVE: Patient is a 80-year-old female with significant arthritis. She was walking in a straight line and felt a pop and then had acute pain in the left anterior knee she did not fall but has severe pain when she bears weight. She takes Celebrex for arthritis pain at baseline. No prior history of surgery to that knee. No ankle or hip pain. ROS: General: No fever. Skin: No rash. Eyes: No vision problems. ENT: No sore throat. Neck: No neck stiffness. Respiratory: No shortness of breath. Cardiac: No chest pain. Gastrointestinal: No nausea, vomiting or abdominal pain. Musculoskeletal: Per HPI Neurologic: No headache. left knee Pain Score (Numeric/FACES): 9 - Related Data Allergies Allergy/AdvReac Type Severity Reaction Status Date / Time amoxicillin Allergy Rash Verified 02/22/21 22:58 Penicillins Allergy Rash Verified 02/22/21 22:58 Home Meds: Home Meds Aspirin [Adult Low Dose Aspirin EC] 81 mg PO DAILY 06/16/18 [History] Omeprazole 20 mg PO ACBREAKFAST 06/16/18 [History] PARoxetine [Paxil] 20 mg PO DAILY 06/16/18 [History] atenoloL [Atenolol] 50 mg PO DAILY 06/16/18 [History] Celecoxib 200 mg PO DAILY 07/08/19 [History] Multivitamins [Tab-A-Ritchie] 1 each PO DAILY 07/08/19 [History] Derby-3 Fatty Acids/Fish Oil [Fish Oil 1,200 mg Softgel] 1,200 mg PO DAILY 07/08/19 [History] Ascorbic Acid [Vitamin C] 1,000 mg PO DAILY 09/11/19 [History] Calcium Carbonate [Calcium] 600 mg PO DAILY 09/11/19 [History] Cholecalciferol (Vitamin D3) [Vitamin D3] 5,000 unit PO DAILY 09/11/19 [History] Folic Acid 0.4 mg PO DAILY 09/11/19 [History] HCTZ/Triamterene [Maxzide 25-37.5 MG] 1 tab PO DAILY 09/11/19 [History] NIFEdipine [Adalat cc] 60 mg PO DAILY 09/11/19 [History] Acetaminophen [Tylenol Arthritis] 650 mg PO QID PRN 06/04/20 [History] Omeprazole 20 mg PO DAILY 30 Days #30 tawny. 06/04/20 [Rx] Ondansetron [Zofran ODT] 4 mg PO Q6H PRN #8 tab.dis 06/04/20 [Rx] Simvastatin 20 mg PO BEDTIME 06/04/20 [History] Past Medical History HEENT History: Reports: None Cardiovascular History: Reports: High Cholesterol, Hypertension Respiratory History: Reports: None Gastrointestinal History: Reports: GERD Genitourinary History: Reports: None BURNER HAND History: Reports: None Musculoskeletal History: Reports: Arthritis Neurological History: Reports: CVA Other Neuro History: November 2016 Psychiatric History: Reports: Anxiety Endocrine/Metabolic History: Reports: None Insulin Pump Model and Concrete Products Dispatcher: None Hematologic History: Reports: None Immunologic History: Reports: None Oncologic (Cancer) History: Reports: Thyroid Dermatologic History: Reports: None - Infectious Disease History Infectious Disease History: Reports: None - Past Surgical History Head Surgeries/Procedures: Reports: None HEENT Surgical History: Reports: Other (See Below) Other HEENT Surgeries/Procedures: wears eye glass GI Surgical History: Reports: Colonoscopy Social & Family History - Family History Family Medical History: No Pertinent Family History - Caffeine Use Caffeine Use: Reports: Coffee, Soda - Recreational Drug Use Recreational Drug Use: No Review of Systems - Review of Systems Review Of Systems: See Below ED EXAM, GENERAL - Physical Exam Exam: See Below Free Text/Narrative:: General Appearance: No acute distress, appears comfortable HEENT: Normocephalic/atraumatic, sclera anicteric, mucous membranes moist Chest and Lungs: Normal work of breathing Cardiovascular: Intact distal perfusion no lower extremity edema Musculoskeletal: 2+ left DP pulse no focal tenderness or swelling in the left ankle or the left hip focal tenderness along the medial joint line just medial to the patellar ligament MCL and LCL intact on exam no clinical joint effusion extensor mechanism intact no pain with straight leg raise Neurologic: Awake, alert, no obvious deficits, moving all extremities Psychiatric: Appropriate, cooperative Course - Vital Signs Last Recorded V/S: Last Vital Signs Temp 97.6 F 02/22/21 22:59 Pulse 69 02/22/21 22:59 Resp 18 02/22/21 22:59 BP 155/66 H 02/22/21 22:59 Pulse Ox 97 02/22/21 22:59 - Orders/Labs/Meds Meds: Medications Discontinued Medications Generic Name Dose Route Start Last Admin Trade Name Payton PRN Reason Stop Dose Admin Acetaminophen 650 mg 02/22/21 23:22 02/22/21 23:47 Acetaminophen 325 Mg Tab PO 02/22/21 23:23 650 mg NOW ONE Administration Departure - Departure Time of Disposition: 00:24 Disposition: Home, Self-Care 01 Condition: Good Clinical Impression: Knee pain - Discharge Information *PRESCRIPTION DRUG MONITORING PROGRAM REVIEWED*: Not Applicable *COPY OF PRESCRIPTION DRUG MONITORING REPORT IN PATIENT JASON: Not Applicable Instructions: Acute Knee Pain, Adult Additional Instructions: Because the pain happened when you were walking in a straight line it is most likely that a piece of soft tissue within your knee was pinched and is now irritated and inflamed. If this is the case then it should improve over the next few days. I encourage you to wear the knee brace when you're up and around for comfort and to use a walker as you need to to help with pain and unsteadiness. Please follow-up with your primary care doctor. If your symptoms do not improve over the next several days they can refer you onto an orthopedic surgeon. The following information is given to patients seen in the emergency department who are being discharged to home. This information is to outline your options for follow-up care. We provide all patients seen in our emergency department with a follow-up referral. The need for follow-up, as well as the timing and circumstances, are variable depending upon the specifics of your emergency department visit. If you don't have a primary care physician on staff, we will provide you with a referral. We always advise you to contact your personal physician following an emergency department visit to inform them of the circumstance of the visit and for follow-up with them and/or the need for any referrals to a consulting specialist. The emergency department will also refer you to a specialist when appropriate. This referral assures that you have the opportunity for follow-up care with a specialist. All of these measure are taken in an effort to provide you with opt imal care, which includes your follow-up. Under all circumstances we always encourage you to contact your private physician who remains a resource for coordinating your care. When calling for follow-up care, please make the office aware that this follow-up is from your recent emergency room visit. If for any reason you are refused follow-up, please contact the [facility] Emergency Department at and asked to speak to the emergency department charge nurse. Sepsis Event Note (ED) - Focused Exam Vital Signs: Vital Signs Temp Pulse Resp BP Pulse Ox 02/22/21 22:59 97.6 F 69 18 155/66 H 97 - Assessment/Plan Assessment:: 80-year-old female presenting with injury to the left knee as described ligaments appear intact no clinical joint effusion x-ray without acute fracture. Plica irritation is a consideration meniscal injury is possible and ligamentous injury is possible as well. However, patient does not really have a mechanism of injury for this. Patient was given Tylenol for pain. She was given a knee brace she walks with a walker. She will follow-up with her primary care doctor initially if her pain does not improve then she can follow-up with orthopedics from there. No concern for gout no concern for septic arthritis
== END 2021-02-23 00:40 | disposition home or self-care (01) ==
LOC: MW.ED 21:33
DX: M25.562 Pain in left knee (principal); K21.9 Gastro-esophageal reflux disease without esophagitis; E78.00 Pure hypercholesterolemia, unspecified; I10 Essential (primary) hypertension; Z88.0 Allergy status to penicillin; Z86.73 Personal history of transient ischemic attack (TIA), and cerebral infarction without residual deficits; Z79.82 Long term (current) use of aspirin; Z79.899 Other long term (current) drug therapy
CPT/HCPCS: 73562; 99283; A9270

== ENCOUNTER 2021-07-24 11:24 | Emergency (ER) | payer MEDICARE, OTHER ==
[2021-07-24] MEDS ORDERED: Ondansetron 4 MG Tab.DIS PO ONE (11:49)
[2021-07-24 12:36] LABS: BLOOD UREA NITROGEN,BUN 24 mg/dL (7.0-18.0); CHLORIDE,CL 96 mmol/L (98-107); GLUCOSE RANDOM 136 mg/dL (74-106); POTASSIUM,K 3.8 mmol/L (3.5-5.1); SODIUM,NA 134 mmol/L (136-145)
[2021-07-24 13:53] LABS: CORONAVIRUS COVID-19 NAA NEGATIVE (NEGATIVE); INFLUENZA A NAA NEGATIVE (NEGATIVE); INFLUENZA B NAA NEGATIVE (NEGATIVE)
== END 2021-07-24 15:12 | disposition home or self-care (01) ==
LOC: MW.ED 11:24
DX: N30.00 Acute cystitis without hematuria (principal); T50.B95A Adverse effect of other viral vaccines, initial encounter; E78.00 Pure hypercholesterolemia, unspecified; I10 Essential (primary) hypertension; Z86.73 Personal history of transient ischemic attack (TIA), and cerebral infarction without residual deficits; Z88.0 Allergy status to penicillin; Z79.899 Other long term (current) drug therapy; Z20.822 Contact with and (suspected) exposure to COVID-19
CPT/HCPCS: 0240U; 36415; 71045; 80053; 81001; 85025; 87086; 93005; 99284; A9270

== ENCOUNTER 2021-07-27 19:30 | Emergency (ER) | payer MEDICARE, OTHER ==
[2021-07-27 20:40] LABS: BLOOD UREA NITROGEN,BUN 30 mg/dL (7.0-18.0); CARBON DIOXIDE,CO2 29.2 mmol/L (21.0-32.0); CHLORIDE,CL 88 mmol/L (98-107); GLUCOSE RANDOM 160 mg/dL (74-106); POTASSIUM,K 4.5 mmol/L (3.5-5.1); SODIUM,NA 126 mmol/L (136-145)
[2021-07-27] MEDS ORDERED: Lactated Ringers 1,000 ML IV STA ×2 (20:46→22:15)
[2021-07-27] MEDS ORDERED: Cefepime 1 GM in Premix Bag 1 BAG IV ONE (20:57)
[2021-07-27] MEDS ORDERED: VANCOmycin 2 GM/400 ML 2 GM in Premix Bag 1 BAG IV ONE (21:15)
[2021-07-27] MEDS ORDERED: Iopamidol 755 MG/ML 500 ML Multipack Bottle IVPUSH STA (21:29)
[2021-07-27] MEDS ORDERED: Pantoprazole 80 MG in Sodium Chloride 0.9% 10 ML IVPUSH ONE (21:49)
[2021-07-27] MEDS ORDERED: Alum Hydro/Mag Hydro/Simeth XS 15 ML, Lidocaine 2% 5 ML PO ONE ×2 (21:49)
[2021-07-27] MEDS ORDERED: Morphine 4 MG/ML VIAL IVPUSH ONE (22:03)
[2021-07-27] MEDS ORDERED: metroNIDAZOLE/Normal Saline 500 MG in Premix Bag 1 BAG IV ONE (22:05)
[2021-07-27 22:13] LABS: CORONAVIRUS COVID-19 NAA NEGATIVE (NEGATIVE); INFLUENZA A NAA NEGATIVE (NEGATIVE); INFLUENZA B NAA NEGATIVE (NEGATIVE)
== END 2021-07-27 23:41 ==
LOC: MW.ED 19:30
DX: K26.1 Acute duodenal ulcer with perforation (principal); K65.1 Peritoneal abscess; K44.9 Diaphragmatic hernia without obstruction or gangrene; N17.9 Acute kidney failure, unspecified; E86.0 Dehydration; E87.2 Acidosis; E87.1 Hypo-osmolality and hyponatremia; I11.0 Hypertensive heart disease with heart failure; I50.9 Heart failure, unspecified; E78.00 Pure hypercholesterolemia, unspecified; Z86.73 Personal history of transient ischemic attack (TIA), and cerebral infarction without residual deficits; Z20.822 Contact with and (suspected) exposure to COVID-19; Z79.899 Other long term (current) drug therapy; Z88.0 Allergy status to penicillin
CPT/HCPCS: 0240U; 36415; 71045; 74177; 80053; 81001; 83605; 83735; 84484; 85025; 85610; 87040; 93005; 96365; 96367; 96368; 96375; 99285; C9113; J0692; J2270; J3370; J3490; J7050; J7120; Q9967

== ENCOUNTER 2021-09-04 15:01 | Inpatient (IN) | payer MEDICARE, OTHER ==
[2021-09-04] MEDS ORDERED: Iopamidol 755 MG/ML 500 ML Multipack Bottle IVPUSH STA (15:47)
[2021-09-04] MEDS ORDERED: Sodium Chloride 0.9% 500 ML IV ONE ×2 (16:05→17:24)
[2021-09-04 16:28] LABS: BLOOD UREA NITROGEN,BUN 14 mg/dL (7.0-18.0); CARBON DIOXIDE,CO2 31.2 mmol/L (21.0-32.0); CHLORIDE,CL 102 mmol/L (98-107); ESTIMATED GFR > 60.0 ml/min; GLUCOSE RANDOM 126 mg/dL (74-106); SODIUM,NA 142 mmol/L (136-145)
[2021-09-04] MEDS ORDERED: Magnesium Oxide 400 MG Tab PO ONE (17:00)
[2021-09-04] MEDS ORDERED: Potassium Chloride 20 MEQ Tab.ER PO ONE (17:00)
[2021-09-05] MEDS ORDERED: Acetaminophen 325 MG Tab PO ONE (00:59)
[2021-09-05] MEDS ORDERED: Ondansetron 4 MG/2 ML SDV IVPUSH PRN (04:27)
[2021-09-05] MEDS ORDERED: Albuterol/Ipratropium 3.0-0.5 MG/3 ML Neb Soln NEB PRN (04:28)
[2021-09-05] MEDS ORDERED: atorvaSTATin 40 MG Tab PO ONE (04:29)
[2021-09-05] MEDS ORDERED: Aspirin 81 MG Tab.Chew PO ONE (04:29)
[2021-09-05] MEDS ORDERED: cefTRIAXone 1 GM in Sodium Chloride 0.9% 50 ML IV ONE (05:00)
[2021-09-05 06:39] LABS: BLOOD UREA NITROGEN,BUN 10 mg/dL (7.0-18.0); CHLORIDE,CL 103 mmol/L (98-107); ESTIMATED GFR > 60.0 ml/min; GLUCOSE RANDOM 94 mg/dL (74-106); POTASSIUM,K 2.7 mmol/L (3.5-5.1); SODIUM,NA 142 mmol/L (136-145)
[2021-09-05] MEDS ORDERED: Magnesium Sulfate/Water 4 GM in Premix Bag 1 BAG IV ONE (08:02)
[2021-09-05] MEDS ORDERED: Potassium Chloride 20 MEQ Tab.ER PO ONE (08:02)
[2021-09-05] MEDS ORDERED: Metoprolol Tartrate 25 MG Tab PO SCH (09:00)
[2021-09-05] MEDS ORDERED: Omeprazole 20 MG Cap.CR PO SCH ×2 (09:00→09:30)
[2021-09-05] MEDS ORDERED: Gadobenate Dimeglumine 529 MG/ML 20 ML SDV IVPUSH STA (09:27)
[2021-09-05] MEDS ORDERED: Clopidogrel 75 MG Tab PO ONE (09:58)
[2021-09-05] MEDS ORDERED: atorvaSTATin 40 MG Tab PO SCH (21:00)
== END 2021-09-05 11:50 | DRG 68 ==
LOC: MW.ED 15:01 → MW.MS 18:30 → UNDODISOB 23:21 → OBSVTOIN 09-05 02:15 → MW.MS 09-05 02:16
PROVIDERS: ADMIT Student in an Organized Health Care Education/Training Program; ATTEND Student in an Organized Health Care Education/Training Program
DX: R41.0 Disorientation, unspecified (principal); I21.4 Non-ST elevation (NSTEMI) myocardial infarction; I65.21 Occlusion and stenosis of right carotid artery; N30.00 Acute cystitis without hematuria; I11.0 Hypertensive heart disease with heart failure; I50.9 Heart failure, unspecified; Z86.73 Personal history of transient ischemic attack (TIA), and cerebral infarction without residual deficits; Z88.0 Allergy status to penicillin; Z88.1 Allergy status to other antibiotic agents; Z79.899 Other long term (current) drug therapy; E78.00 Pure hypercholesterolemia, unspecified; K21.9 Gastro-esophageal reflux disease without esophagitis; K44.9 Diaphragmatic hernia without obstruction or gangrene; M19.90 Unspecified osteoarthritis, unspecified site; F41.9 Anxiety disorder, unspecified; Z85.850 Personal history of malignant neoplasm of thyroid; Z86.19 Personal history of other infectious and parasitic diseases; Z20.822 Contact with and (suspected) exposure to COVID-19
CPT/HCPCS: 36415 ×2; 70450; 70496; 70498; 71045; 80053; 81001; 83735; 83880; 84484 ×4; 85025; 85610; 85730; 93005; 99285; A9270 ×3; J7030 ×2; Q9967; U0002; 70553; 70553-26; 80048; 80061; 83036; 84100; 84443; 87086; 87088; 87186; 93010; 93307; 97162-GP; 99236; 99291; A9577; J0696; J2405; J3475

== ENCOUNTER 2022-11-20 20:20 | Emergency (ER) | payer MEDICARE, OTHER ==
[2022-11-20] MEDS ORDERED: diphenhydrAMINE 50 MG/ML SDV IVPUSH ONE (21:11)
[2022-11-20] MEDS ORDERED: Metoclopramide 10 MG/2 ML SDV IVPUSH ONE (21:11)
[2022-11-20] MEDS ORDERED: Acetaminophen 500 MG Tab PO ONE (21:11)
[2022-11-20] MEDS ORDERED: Sodium Chloride 0.9% 500 ML IV ONE (21:11)
[2022-11-20] MEDS ORDERED: Labetalol 100 MG Tab PO ONE (21:18)
[2022-11-20 21:49] LABS: BASOPHILS PERCENT AUTO 0.2 % (0.0-1.5); EOSINOPHILS PERCENT AUTO 0.3 % (0.0-7.0); HEMATOCRIT 41.1 % (36.0-46.0); HEMOGLOBIN 13.4 g/dL (12.0-16.0); LYMPHOCYTES ABSOLUTE AUTO 0.8 K/uL (0.6-2.4); MEAN CORPUSCULAR HEMOGLOBIN 29.9 pg (27.0-32.0); MEAN CORPUSCULAR HGB CONC 32.6 g/dL (31.0-37.0); MEAN CORPUSCULAR VOLUME 91.7 fL (80.0-98.0); MONOCYTES ABSOLUTE AUTO 1.2 K/uL (0.0-0.8); MONOCYTES PERCENT AUTO 13.8 % (0.0-15.0); NEUTROPHILS ABSOLUTE AUTO 6.8 K/uL (1.4-5.7); NEUTROPHILS PERCENT AUTO 76.7 % (48.0-80.0); PLATELET COUNT,PLT 185 K/uL (150-400); RED BLOOD CELL COUNT 4.48 M/uL (4.30-5.90); WHITE BLOOD CELL COUNT,WBC 8.87 K/uL (4.0-11.0)
[2022-11-20 22:25] LABS: A/G RATIO 0.7 (0.9-1.6); ALANINE AMINOTRANSFERASE,ALT 80 IU/L (14-63); ALBUMIN 3.3 g/dL (3.4-5.0); ALKALINE PHOSPHATASE 317 U/L (46-116); ASPARTATE AMNIOTRANSFERASE,AST 103 IU/L (15-37); BILIRUBIN TOTAL 0.6 mg/dL (0.2-1.0); BLOOD UREA NITROGEN,BUN 14 mg/dL (7.0-18.0); CARBON DIOXIDE,CO2 29.6 mmol/L (21.0-32.0); CHLORIDE,CL 100 mmol/L (98-107); CREATININE 0.9 mg/dL (0.6-1.0); GLUCOSE RANDOM 112 mg/dL (74-106); LIPASE 125 U/L (73-393); MAGNESIUM 1.7 mg/dL (1.8-2.4); POTASSIUM,K 3.9 mmol/L (3.5-5.1); PROTEIN TOTAL,TP 7.9 g/dL (6.4-8.2); SODIUM,NA 137 mmol/L (136-145)
[2022-11-20 22:26] LABS: CORONAVIRUS COVID-19 NAA POSITIVE (NEGATIVE); ESTIMATED GFR 65 mL/min (>60); INFLUENZA A NAA NEGATIVE (NEGATIVE); INFLUENZA B NAA NEGATIVE (NEGATIVE)
== END 2022-11-20 23:56 | disposition home or self-care (01) ==
LOC: MW.ED 20:20
DX: U07.1 COVID-19 (principal); I11.0 Hypertensive heart disease with heart failure; I50.9 Heart failure, unspecified; E78.00 Pure hypercholesterolemia, unspecified; K21.9 Gastro-esophageal reflux disease without esophagitis; Z86.73 Personal history of transient ischemic attack (TIA), and cerebral infarction without residual deficits; Z88.0 Allergy status to penicillin; Z79.899 Other long term (current) drug therapy
CPT/HCPCS: 0240U; 36415; 70450; 71045; 73562; 80053; 83690; 83735; 83880; 84484; 85025; 93005; 96374; 96375; 99284; A9270; J1200; J2765; J7030

== ENCOUNTER 2024-06-22 13:06 | Emergency (ER) | payer MEDICARE, OTHER ==
[2024-06-22] MEDS ORDERED: Sodium Chloride 0.9% 2.5 ML Syringe FLUSH PRN (13:14)
[2024-06-22] MEDS ORDERED: cefTRIAXone 1 GM Vial IV ONE (13:14)
[2024-06-22] MEDS ORDERED: Sodium Chloride 0.9% 10 ML Syringe FLUSH PRN (13:14)
[2024-06-22] MEDS ORDERED: cefTRIAXone 1 GM in Sodium Chloride 0.9% 50 ML IV ONE (13:30)
[2024-06-22] MEDS: Sodium Chloride 0.9% 1,000 ML IV ONE ×3 (13:33→15:18)
[2024-06-22] MEDS: cefTRIAXone 2 GM in Sodium Chloride 0.9% 50 ML IV ONE (13:33)
[2024-06-22 13:56] LABS: HEMATOCRIT 40.9 % (37.0-47.0); MEAN CORPUSCULAR HEMOGLOBIN 27.7 pg (28.0-32.0); MEAN CORPUSCULAR HGB CONC 31.8 g/dL (32.0-36.0); MEAN PLATELET VOLUME 9.8 fL (9.4-12.3); PLATELET COUNT,PLT 374 K/uL (150-400); WHITE BLOOD CELL COUNT,WBC 27.24 K/uL (3.9-11.3)
[2024-06-22 14:22] LABS: BAND ABSOLUTE MAN 0.82; BAND PERCENT MAN 3 %; LYMPHOCYTES ABSOLUTE MAN 2.72 K/uL (1.00-4.80); LYMPHOCYTES PERCENT MAN 10 % (24-44); MONOCYTES ABSOLUTE MAN 1.09 K/uL (0.00-0.80); MONOCYTES PERCENT MAN 4 % (0-8); SEG NEUTROPHILS ABSOLUTE MAN 22.61 K/uL (1.80-7.70); SEG NEUTROPHILS PERCENT MAN 83 % (41-71)
[2024-06-22 14:27] LABS: LACTIC ACID 5.9 mmol/L (0.4-2.0)
[2024-06-22 14:28] LABS: A/G RATIO 0.8 (0.9-1.6); ALBUMIN 3.6 g/dL (3.4-5.0); BILIRUBIN TOTAL 0.7 mg/dL (0.2-1.0); CALCIUM 9.9 mg/dL (8.5-10.1); CARBON DIOXIDE,CO2 27.5 mmol/L (21.0-32.0); CREATININE 1.3 mg/dL (0.6-1.0); EST CRCL DRUG DOSING (CG) 30.02 mL/min; POTASSIUM,K 3.7 mmol/L (3.5-5.1)
[2024-06-22] MEDS: Ondansetron 4 MG/2 ML SDV IVPUSH ONE (15:39)
[2024-06-22] MEDS: Azithromycin 500 MG in Sodium Chloride 0.9% 250 ML IV ONE (15:39)
[2024-06-22] MEDS: Pantoprazole 80 MG in Sodium Chloride 0.9% 10 ML IVPUSH ONE (16:04)
[2024-06-22] MEDS: Metoclopramide 10 MG/2 ML SDV IVPUSH ONE (16:26)
[2024-06-22 18:20] LABS: APPEARANCE,URINE SLT CLOUDY; BILIRUBIN,URINE NEGATIVE (NEGATIVE); COLOR,URINE YELLOW; GLUCOSE,URINE NEGATIVE (NEGATIVE); KETONES,URINE NEGATIVE (NEGATIVE); LEUKOCYTE ESTERASE,URINE TRACE (NEGATIVE); NITRITE,URINE NEGATIVE (NEGATIVE); OCCULT BLOOD,URINE TRACE-INTACT (NEGATIVE); PROTEIN,URINE TRACE mg/dL (NEGATIVE); UROBILINOGEN,URINE 0.2 EU/dL (<2.0)
[2024-06-22 18:39] LABS: BACTERIA,URINE 1+ (NEGATIVE); MUCUS,URINE LIGHT (NONE-MOD); SQUAMOUS EPITHELIAL CELLS,UR FEW; WBC,URINE 0-3 (0-5/HPF)
[2024-06-22] MEDS ORDERED: Apixaban 5 MG Tab PO SCH (21:00)
[2024-06-23] MEDS ORDERED: Aspirin 81 MG Tab.Chew PO SCH (09:00)
[2024-06-23] MEDS ORDERED: atorvaSTATin 40 MG Tab PO SCH (09:00)
== END 2024-06-22 19:45 | disposition critical access hospital (66) ==
LOC: MW.ED 13:06 → UNDOADMIN 15:07 → MW.ICU 15:07 → UNDODISIN 19:42
DX: J18.9 Pneumonia, unspecified organism (principal); E78.00 Pure hypercholesterolemia, unspecified; I10 Essential (primary) hypertension; K21.9 Gastro-esophageal reflux disease without esophagitis; M19.90 Unspecified osteoarthritis, unspecified site; Z86.16 Personal history of COVID-19; Z99.81 Dependence on supplemental oxygen; Z88.1 Allergy status to other antibiotic agents; Z88.0 Allergy status to penicillin; Z79.82 Long term (current) use of aspirin; Z79.01 Long term (current) use of anticoagulants; Z79.02 Long term (current) use of antithrombotics/antiplatelets; Z79.899 Other long term (current) drug therapy; Z85.850 Personal history of malignant neoplasm of thyroid; Z98.890 Other specified postprocedural states
CPT/HCPCS: 36415; 71046; 80053; 81001; 83605; 84145; 84484; 85025; 87040; 87428; 87899; 96361; 96365; 99285; J0456; J0696; J2405; J2470; J2765; J3490; J7030; J7050; 99284

== ENCOUNTER 2024-09-29 20:03 | Emergency (ER) | payer MEDICARE, OTHER ==
[2024-09-29] MEDS ORDERED: Sodium Chloride 0.9% 2.5 ML Syringe FLUSH PRN (20:09)
[2024-09-29] MEDS ORDERED: Sodium Chloride 0.9% 10 ML Syringe FLUSH PRN (20:09)
[2024-09-29] MEDS ORDERED: Sodium Chloride 0.9% 20 ML SDV IV PRN (20:09)
[2024-09-29] MEDS: Albuterol/Ipratropium 3.0-0.5 MG/3 ML Neb Soln NEB SCH (20:21)
[2024-09-29 20:47] LABS: BASOPHILS ABSOLUTE AUTO 0.04 K/uL (0.00-0.20); BASOPHILS PERCENT AUTO 0.2 % (0.0-1.0); HEMATOCRIT 48.7 % (37.0-47.0); IMMATURE GRAN ABSOLUTE AUTO 0.07 K/uL (0.00-0.05); IMMATURE GRAN PERCENT AUTO 0.4 % (0.0-0.4); LYMPHOCYTES PERCENT AUTO 5.7 % (24.0-44.0); MEAN CORPUSCULAR HEMOGLOBIN 28.3 pg (28.0-32.0); MEAN CORPUSCULAR HGB CONC 32.9 g/dL (32.0-36.0); MEAN PLATELET VOLUME 9.3 fL (9.4-12.3); MONOCYTES ABSOLUTE AUTO 0.95 K/uL (0.00-0.80); MONOCYTES PERCENT AUTO 5.4 % (0.0-8.0); NEUTROPHILS ABSOLUTE AUTO 15.45 K/uL (1.80-7.70); NEUTROPHILS PERCENT AUTO 88.3 % (41.0-71.0); PLATELET COUNT,PLT 308 K/uL (150-400); RED BLOOD CELL COUNT 5.66 M/uL (4.10-5.30); WHITE BLOOD CELL COUNT,WBC 17.51 K/uL (3.9-11.3)
[2024-09-29 20:51] LABS: BASE EXCESS VENOUS 3.6 (-2.0-3.0); PH,VENOUS 7.43 (7.32-7.43)
[2024-09-29] MEDS: droPERidol 2.5 MG/ML SDV IVPUSH ONE (21:07)
[2024-09-29 21:08] LABS: CORONAVIRUS COVID-19 NAA NEGATIVE (NEGATIVE); INFLUENZA A NAA NEGATIVE (NEGATIVE); INFLUENZA B NAA NEGATIVE (NEGATIVE); RESPIRATORY SYNCYTIAL VIR NAA NEGATIVE (NEGATIVE)
[2024-09-29] MEDS: Sodium Chloride 0.9% 500 ML IV ONE (21:12)
[2024-09-29 21:16] LABS: INR 1.12 (0.86-1.11); PTT,PARTIAL THROMBOPLSTIN TIME 27.4 SEC (23.9-30.7)
[2024-09-29 21:22] LABS: LACTIC ACID 3.1 mmol/L (0.4-2.0)
[2024-09-29 21:31] LABS: A/G RATIO 0.9 (0.9-1.6); ALANINE AMINOTRANSFERASE,ALT 98 IU/L (14-63); ALBUMIN 3.7 g/dL (3.4-5.0); ALKALINE PHOSPHATASE 185 U/L (46-116); ASPARTATE AMNIOTRANSFERASE,AST 74 IU/L (15-37); BILIRUBIN TOTAL 1.1 mg/dL (0.2-1.0); BLOOD UREA NITROGEN,BUN 23 mg/dL (7.0-18.0); CALCIUM 9.4 mg/dL (8.5-10.1); CARBON DIOXIDE,CO2 25.9 mmol/L (21.0-32.0); CHLORIDE,CL 104 mmol/L (98-107); GLUCOSE RANDOM 186 mg/dL (74-106); LIPASE 20 U/L (16-77); MAGNESIUM 1.9 mg/dL (1.8-2.4); POTASSIUM,K 3.6 mmol/L (3.5-5.1); PRO B-TYPE NATRIUR PEPT,BNPPRO 1717 pg/mL (0-450); PROTEIN TOTAL,TP 7.8 g/dL (6.4-8.2); SODIUM,NA 143 mmol/L (136-145)
[2024-09-29] MEDS: cefTRIAXone 1 GM in Water For Injection, Sterile 10 ML IVPUSH ONE (21:36)
[2024-09-29 21:37] LABS: ESTIMATED GFR 56 mL/min (>60)
[2024-09-29] MEDS: Clindamycin Phosphate in D5W 600 MG in Premix Bag 1 BAG IV ONE (21:38)
[2024-09-29 23:16] LABS: APPEARANCE,URINE SLT CLOUDY; BILIRUBIN,URINE NEGATIVE (NEGATIVE); COLOR,URINE YELLOW; GLUCOSE,URINE NEGATIVE (NEGATIVE); KETONES,URINE NEGATIVE (NEGATIVE); LEUKOCYTE ESTERASE,URINE NEGATIVE (NEGATIVE); NITRITE,URINE NEGATIVE (NEGATIVE); OCCULT BLOOD,URINE NEGATIVE (NEGATIVE); PH,URINE 5.5 (5.0-8.0); PROTEIN,URINE 100 mg/dL (NEGATIVE); UROBILINOGEN,URINE 0.2 EU/dL (<2.0)
[2024-09-29 23:30] LABS: BACTERIA,URINE RARE (NEGATIVE); EPITHELIAL CELLS,URINE FEW (NONE-FEW); RBC,URINE 0-2 (0-2/HPF)
[2024-09-30] MEDS: Lidocaine 2% Viscous Solution 15 ML UD PO ONE (00:16)
[2024-09-30] MEDS: Benzocaine 20% Topical Spray UD MUCMEM ONE (00:34)
== END 2024-09-30 01:25 ==
LOC: MW.ED 20:03
DX: J18.9 Pneumonia, unspecified organism (principal); K56.2 Volvulus; I10 Essential (primary) hypertension; E78.00 Pure hypercholesterolemia, unspecified; K21.9 Gastro-esophageal reflux disease without esophagitis; Z79.899 Other long term (current) drug therapy; Z88.0 Allergy status to penicillin
CPT/HCPCS: 0241U; 36415; 43752; 71045; 74176; 80053; 81001; 82803; 83605; 83690; 83735; 83880; 84484; 85025; 85610; 85730; 87040; 93005; 96361; 96365; 96375; 99285; A9270; J0696; J0736; J1790; J7030; 93010

== ENCOUNTER 2024-11-02 14:27 | Inpatient (IN) | payer MEDICARE, OTHER ==
[2024-11-02] MEDS ORDERED: Sodium Chloride 0.9% 2.5 ML Syringe FLUSH PRN (14:40)
[2024-11-02] MEDS ORDERED: Sodium Chloride 0.9% 10 ML Syringe FLUSH PRN (14:40)
[2024-11-02] MEDS: Ondansetron 4 MG/2 ML SDV IVPUSH STA ×2 (14:54→14:57)
[2024-11-02] MEDS: Sodium Chloride 0.9% 1,000 ML IV STA ×2 (14:54→15:08)
[2024-11-02 14:56] LABS: BASOPHILS ABSOLUTE AUTO 0.02 K/uL (0.00-0.20); BASOPHILS PERCENT AUTO 0.3 % (0.0-1.0); EOSINOPHILS ABSOLUTE AUTO 0.02 K/uL (0.00-0.45); EOSINOPHILS PERCENT AUTO 0.3 % (0.0-6.0); HEMATOCRIT 41.9 % (37.0-47.0); HEMOGLOBIN 13.9 g/dL (12.0-16.0); IMMATURE GRAN ABSOLUTE AUTO 0.04 K/uL (0.00-0.05); IMMATURE GRAN PERCENT AUTO 0.6 % (0.0-0.4); LYMPHOCYTES ABSOLUTE AUTO 0.32 K/uL (1.00-4.80); LYMPHOCYTES PERCENT AUTO 4.5 % (24.0-44.0); MEAN CORPUSCULAR HEMOGLOBIN 28.2 pg (28.0-32.0); MEAN CORPUSCULAR HGB CONC 33.2 g/dL (32.0-36.0); MEAN PLATELET VOLUME 10.5 fL (9.4-12.3); MONOCYTES ABSOLUTE AUTO 0.09 K/uL (0.00-0.80); MONOCYTES PERCENT AUTO 1.3 % (0.0-8.0); NEUTROPHILS ABSOLUTE AUTO 6.62 K/uL (1.80-7.70); RED BLOOD CELL COUNT 4.93 M/uL (4.10-5.30); WHITE BLOOD CELL COUNT,WBC 7.11 K/uL (3.9-11.3)
[2024-11-02] MEDS: Sodium Chloride 0.9% 1,000 ML IV ONE (14:57)
[2024-11-02 15:19] LABS: A/G RATIO 0.8 (0.9-1.6); ALBUMIN 3.1 g/dL (3.4-5.0); BILIRUBIN TOTAL 1.3 mg/dL (0.2-1.0); CALCIUM 8.7 mg/dL (8.5-10.1); CARBON DIOXIDE,CO2 26.2 mmol/L (21.0-32.0); CREATININE 1.3 mg/dL (0.6-1.0); EST CRCL DRUG DOSING (CG) 30.02 mL/min; POTASSIUM,K 3.3 mmol/L (3.5-5.1); PROTEIN TOTAL,TP 6.9 g/dL (6.4-8.2)
[2024-11-02 15:32] LABS: PLATELET COUNT,PLT 165 K/uL (150-400)
[2024-11-02 16:10] LABS: CORONAVIRUS COVID-19 NAA NEGATIVE (NEGATIVE); INFLUENZA A NAA NEGATIVE (NEGATIVE); INFLUENZA B NAA NEGATIVE (NEGATIVE); RESPIRATORY SYNCYTIAL VIR NAA NEGATIVE (NEGATIVE)
[2024-11-02 16:24] LABS: LACTIC ACID 4.2 mmol/L (0.4-2.0)
[2024-11-02 16:39] LABS: APPEARANCE,URINE CLEAR; BILIRUBIN,URINE NEGATIVE (NEGATIVE); COLOR,URINE YELLOW; GLUCOSE,URINE NEGATIVE (NEGATIVE); KETONES,URINE NEGATIVE (NEGATIVE); LEUKOCYTE ESTERASE,URINE SMALL (NEGATIVE); NITRITE,URINE NEGATIVE (NEGATIVE); OCCULT BLOOD,URINE SMALL (NEGATIVE); PH,URINE 5.5 (5.0-8.0); PROTEIN,URINE TRACE mg/dL (NEGATIVE); UROBILINOGEN,URINE 0.2 EU/dL (<2.0)
[2024-11-02 16:51] LABS: BACTERIA,URINE 1+ (NEGATIVE); EPITHELIAL CELLS,URINE MODERATE (NONE-FEW); WBC,URINE 20-30 (0-5/HPF)
[2024-11-02] MEDS: cefTRIAXone 1 GM in Water For Injection, Sterile 10 ML IVPUSH ONE (17:20)
[2024-11-02] MEDS ORDERED: Furosemide 40 MG in Sodium Chloride 0.9% 50 ML IV STA (18:53)
[2024-11-02] MEDS ORDERED: Ondansetron 4 MG/2 ML SDV IVPUSH PRN (19:28)
[2024-11-02] MEDS ORDERED: Sodium Chloride 0.9% 500 ML IV SCH (20:00)
[2024-11-02] MEDS: Iopamidol 755 MG/ML 500 ML Multipack Bottle IVPUSH ONE (20:27)
[2024-11-02] MEDS: Furosemide 40 MG/4 ML VIAL IV ONE (23:47)
[2024-11-02] MEDS: Potassium Chloride 20 MEQ Tab.ER PO SCH (23:54)
[2024-11-02] MEDS: Pantoprazole 40 MG Tab.CR PO SCH (23:54)
[2024-11-02] MEDS: Apixaban 5 MG Tab PO SCH (23:54)
[2024-11-02] MEDS: Sodium Chloride 0.9% 1,000 ML IV SCH (23:55)
[2024-11-03 00:15] LABS: LACTIC ACID 2.4 mmol/L (0.4-2.0)
[2024-11-03] MEDS: Pantoprazole 40 MG Tab.CR PO SCH (00:47)
[2024-11-03] MEDS: Furosemide 40 MG/4 ML VIAL IV ONE (00:49)
[2024-11-03 05:08] LABS: BASOPHILS ABSOLUTE AUTO 0.01 K/uL (0.00-0.20); BASOPHILS PERCENT AUTO 0.2 % (0.0-1.0); HEMATOCRIT 36.3 % (37.0-47.0); HEMOGLOBIN 12.2 g/dL (12.0-16.0); IMMATURE GRAN ABSOLUTE AUTO 0.04 K/uL (0.00-0.05); IMMATURE GRAN PERCENT AUTO 0.8 % (0.0-0.4); LYMPHOCYTES ABSOLUTE AUTO 0.23 K/uL (1.00-4.80); LYMPHOCYTES PERCENT AUTO 4.4 % (24.0-44.0); MEAN CORPUSCULAR HEMOGLOBIN 28.7 pg (28.0-32.0); MEAN CORPUSCULAR HGB CONC 33.6 g/dL (32.0-36.0); MEAN CORPUSCULAR VOLUME 85.4 fL (83.0-99.0); MEAN PLATELET VOLUME 9.7 fL (9.4-12.3); MONOCYTES ABSOLUTE AUTO 0.35 K/uL (0.00-0.80); MONOCYTES PERCENT AUTO 6.7 % (0.0-8.0); NEUTROPHILS ABSOLUTE AUTO 4.62 K/uL (1.80-7.70); NEUTROPHILS PERCENT AUTO 87.9 % (41.0-71.0); PLATELET COUNT,PLT 113 K/uL (150-400); RED BLOOD CELL COUNT 4.25 M/uL (4.10-5.30); WHITE BLOOD CELL COUNT,WBC 5.25 K/uL (3.9-11.3)
[2024-11-03 05:37] LABS: A/G RATIO 0.7 (0.9-1.6); ALBUMIN 2.4 g/dL (3.4-5.0); BILIRUBIN TOTAL 0.9 mg/dL (0.2-1.0); CALCIUM 8.1 mg/dL (8.5-10.1); CARBON DIOXIDE,CO2 23.2 mmol/L (21.0-32.0); EST CRCL DRUG DOSING (CG) 42.18 mL/min; POTASSIUM,K 3.2 mmol/L (3.5-5.1); PROTEIN TOTAL,TP 5.8 g/dL (6.4-8.2)
[2024-11-03] MEDS: PARoxetine 20 MG Tab PO SCH (08:01)
[2024-11-03] MEDS: Acetaminophen 325 MG Tab PO ONE (08:37)
[2024-11-03] MEDS: Potassium Chloride 20 MEQ Tab.ER PO ONE (08:37)
[2024-11-03] MEDS: Metoprolol Tartrate 25 MG Tab PO SCH (13:23)
[2024-11-03] MEDS: cefTRIAXone 1 GM in Water For Injection, Sterile 10 ML IVPUSH SCH (16:53)
[2024-11-03] MEDS ORDERED: Potassium Chloride 20 MEQ Tab.ER PO SCH (21:00)
[2024-11-03] MEDS: atorvaSTATin 40 MG Tab PO SCH (21:38)
[2024-11-03] MEDS: Acetaminophen 325 MG Tab PO PRN (22:22)
[2024-11-04] MEDS: Aspirin 81 MG Tab.Chew PO SCH (08:27)
[2024-11-04 09:51] LABS: A/G RATIO 0.8 (0.9-1.6); ALBUMIN 2.5 g/dL (3.4-5.0); BILIRUBIN TOTAL 0.6 mg/dL (0.2-1.0); CALCIUM 8.4 mg/dL (8.5-10.1); CARBON DIOXIDE,CO2 22.2 mmol/L (21.0-32.0); CREATININE 1.1 mg/dL (0.6-1.0); EST CRCL DRUG DOSING (CG) 38.34 mL/min; PROTEIN TOTAL,TP 5.6 g/dL (6.4-8.2)
[2024-11-05 11:14] LABS: BASOPHILS ABSOLUTE AUTO 0.04 K/uL (0.00-0.20); BASOPHILS PERCENT AUTO 0.7 % (0.0-1.0); EOSINOPHILS ABSOLUTE AUTO 0.13 K/uL (0.00-0.45); EOSINOPHILS PERCENT AUTO 2.3 % (0.0-6.0); HEMATOCRIT 35.5 % (37.0-47.0); HEMOGLOBIN 11.9 g/dL (12.0-16.0); IMMATURE GRAN ABSOLUTE AUTO 0.05 K/uL (0.00-0.05); IMMATURE GRAN PERCENT AUTO 0.9 % (0.0-0.4); LYMPHOCYTES ABSOLUTE AUTO 0.94 K/uL (1.00-4.80); MEAN CORPUSCULAR HEMOGLOBIN 28.1 pg (28.0-32.0); MEAN CORPUSCULAR HGB CONC 33.5 g/dL (32.0-36.0); MEAN CORPUSCULAR VOLUME 83.7 fL (83.0-99.0); MEAN PLATELET VOLUME 10.9 fL (9.4-12.3); MONOCYTES ABSOLUTE AUTO 0.58 K/uL (0.00-0.80); MONOCYTES PERCENT AUTO 10.5 % (0.0-8.0); NEUTROPHILS PERCENT AUTO 68.6 % (41.0-71.0); RED BLOOD CELL COUNT 4.24 M/uL (4.10-5.30); WHITE BLOOD CELL COUNT,WBC 5.54 K/uL (3.9-11.3)
[2024-11-05 11:37] LABS: CALCIUM 8.9 mg/dL (8.5-10.1); CARBON DIOXIDE,CO2 28.3 mmol/L (21.0-32.0); EST CRCL DRUG DOSING (CG) 42.18 mL/min; POTASSIUM,K 4.2 mmol/L (3.5-5.1)
[2024-11-05 12:02] LABS: PLATELET COUNT,PLT 122 K/uL (150-400)
[2024-11-06 06:11] LABS: BASOPHILS ABSOLUTE AUTO 0.05 K/uL (0.00-0.20); BASOPHILS PERCENT AUTO 0.7 % (0.0-1.0); EOSINOPHILS ABSOLUTE AUTO 0.26 K/uL (0.00-0.45); EOSINOPHILS PERCENT AUTO 3.9 % (0.0-6.0); HEMATOCRIT 36.4 % (37.0-47.0); HEMOGLOBIN 12.2 g/dL (12.0-16.0); IMMATURE GRAN ABSOLUTE AUTO 0.13 K/uL (0.00-0.05); IMMATURE GRAN PERCENT AUTO 1.9 % (0.0-0.4); LYMPHOCYTES PERCENT AUTO 20.8 % (24.0-44.0); MEAN CORPUSCULAR HEMOGLOBIN 28.1 pg (28.0-32.0); MEAN CORPUSCULAR HGB CONC 33.5 g/dL (32.0-36.0); MEAN CORPUSCULAR VOLUME 83.9 fL (83.0-99.0); MONOCYTES ABSOLUTE AUTO 0.76 K/uL (0.00-0.80); MONOCYTES PERCENT AUTO 11.3 % (0.0-8.0); NEUTROPHILS ABSOLUTE AUTO 4.12 K/uL (1.80-7.70); NEUTROPHILS PERCENT AUTO 61.4 % (41.0-71.0); RED BLOOD CELL COUNT 4.34 M/uL (4.10-5.30); WHITE BLOOD CELL COUNT,WBC 6.72 K/uL (3.9-11.3)
[2024-11-06 06:28] LABS: PLATELET COUNT,PLT 166 K/uL (150-400)
[2024-11-06 06:38] LABS: CALCIUM 8.9 mg/dL (8.5-10.1); CARBON DIOXIDE,CO2 27.7 mmol/L (21.0-32.0); CREATININE 0.9 mg/dL (0.6-1.0); EST CRCL DRUG DOSING (CG) 46.86 mL/min; POTASSIUM,K 3.7 mmol/L (3.5-5.1)
== END 2024-11-06 15:00 | disposition home or self-care (01) | DRG 871 ==
LOC: MW.ED 14:27 → MW.ICU 19:24 → MW.MS 11-03 15:37
PROVIDERS: ADMIT Internal Medicine; ATTEND Internal Medicine
DX: A41.9 Sepsis, unspecified organism (principal); R65.21 Severe sepsis with septic shock; J81.0 Acute pulmonary edema; N39.0 Urinary tract infection, site not specified; Z66 Do not resuscitate; K44.9 Diaphragmatic hernia without obstruction or gangrene; I48.91 Unspecified atrial fibrillation; E78.00 Pure hypercholesterolemia, unspecified; I10 Essential (primary) hypertension; K21.9 Gastro-esophageal reflux disease without esophagitis; E86.0 Dehydration; M19.90 Unspecified osteoarthritis, unspecified site; F41.9 Anxiety disorder, unspecified; Z85.850 Personal history of malignant neoplasm of thyroid; Z88.0 Allergy status to penicillin; Z79.899 Other long term (current) drug therapy; Z86.73 Personal history of transient ischemic attack (TIA), and cerebral infarction without residual deficits; Z79.01 Long term (current) use of anticoagulants
CPT/HCPCS: 0241U; 36415; 71045; 71045-26; 71260; 71260-26; 74176; 74176-26; 76705; 76705-26; 80048; 80053; 81001; 83605; 84484; 85025; 87040; 87086; 87088; 87186; 93005; 96361; 96374; 96375; 99284; 99285-25; A9270-GY; J0696; J2405; J7030; Q9967

== ENCOUNTER 2025-05-12 15:35 | Emergency (ER) | payer MEDICARE, OTHER ==
[2025-05-12] MEDS ORDERED: Sodium Chloride 0.9% 10 ML Syringe FLUSH PRN (15:36)
[2025-05-12] MEDS ORDERED: Sodium Chloride 0.9% 2.5 ML Syringe FLUSH PRN (15:36)
[2025-05-12 16:27] LABS: BASOPHILS ABSOLUTE AUTO 0.05 K/uL (0.00-0.20); BASOPHILS PERCENT AUTO 0.5 % (0.0-1.0); EOSINOPHILS ABSOLUTE AUTO 0.02 K/uL (0.00-0.45); EOSINOPHILS PERCENT AUTO 0.2 % (0.0-6.0); IMMATURE GRAN ABSOLUTE AUTO 0.02 K/uL (0.00-0.05); IMMATURE GRAN PERCENT AUTO 0.2 % (0.0-0.4); LYMPHOCYTES ABSOLUTE AUTO 1.42 K/uL (1.00-4.80); LYMPHOCYTES PERCENT AUTO 15.0 % (24.0-44.0); MEAN PLATELET VOLUME 10.1 fL (9.4-12.3); MONOCYTES ABSOLUTE AUTO 0.98 K/uL (0.00-0.80); MONOCYTES PERCENT AUTO 10.3 % (0.0-8.0); NEUTROPHILS ABSOLUTE AUTO 6.99 K/uL (1.80-7.70); NEUTROPHILS PERCENT AUTO 73.8 % (41.0-71.0); NRBC ABSOLUTE 0.00 K/uL (0.00-0.02); NRBC PERCENT 0.0 /100WBC (0.0-0.2); PLATELET COUNT,PLT 224 K/uL (150-400); RED BLOOD CELL COUNT 4.55 M/uL (4.10-5.30); WHITE BLOOD CELL COUNT,WBC 9.48 K/uL (3.9-11.3)
[2025-05-12 16:28] LABS: APPEARANCE,URINE CLOUDY; GLUCOSE,URINE NEGATIVE (NEGATIVE); OCCULT BLOOD,URINE LARGE (NEGATIVE)
[2025-05-12 16:49] LABS: A/G RATIO 0.6 (0.9-1.6); ALANINE AMINOTRANSFERASE,ALT 195.0 IU/L (14-63); ASPARTATE AMNIOTRANSFERASE,AST 238.0 IU/L (15-37); BILIRUBIN TOTAL 0.9 mg/dL (0.2-1.0); BLOOD UREA NITROGEN,BUN 25.0 mg/dL (7.0-18.0); CARBON DIOXIDE,CO2 29.6 mmol/L (21.0-32.0); CHLORIDE,CL 103.0 mmol/L (98-107); CREATININE 0.9 mg/dL (0.6-1.0); EST CRCL DRUG DOSING (CG) 42.62 mL/min; GLUCOSE RANDOM 100.0 mg/dL (74-106); POTASSIUM,K 4.0 mmol/L (3.5-5.1); PROTEIN TOTAL,TP 8.4 g/dL (6.4-8.2); SODIUM,NA 138.0 mmol/L (136-145)
[2025-05-12 17:01] LABS: ESTIMATED GFR 63.0 mL/min (>60)
[2025-05-12] MEDS: Iopamidol 755 MG/ML 500 ML Multipack Bottle IVPUSH STA (17:25)
[2025-05-12] MEDS: cefTRIAXone 1 GM in Water For Injection, Sterile 10 ML IVPUSH ONE (17:59)
[2025-05-12] MEDS: Ondansetron 4 MG/2 ML SDV IVPUSH ONE (18:07)
== END 2025-05-12 18:57 | disposition home or self-care (01) ==
LOC: MW.ED 15:35
DX: N30.00 Acute cystitis without hematuria (principal); K76.9 Liver disease, unspecified; I10 Essential (primary) hypertension; K21.9 Gastro-esophageal reflux disease without esophagitis; E78.00 Pure hypercholesterolemia, unspecified; M19.90 Unspecified osteoarthritis, unspecified site; E86.0 Dehydration; Z75.3 Unavailability and inaccessibility of health-care facilities; Z88.0 Allergy status to penicillin; Z79.82 Long term (current) use of aspirin; Z79.899 Other long term (current) drug therapy
CPT/HCPCS: 36415; 74177; 80053; 81001; 83690; 83735; 85025; 87086; 96361; 96374; 96375; 99284; J0696; J2405; J7030; Q9967; 87088; 87186; 99283